=== PATIENT | male | born 1945 | race Caucasian/White ===

== ENCOUNTER 2020-01-02 08:35 | Outpatient (CLI) | payer MEDICARE, OTHER, SELFPAY ==
--- NOTE | 2020-01-10 03:21 | SLEEP_ITS ---
CPAP Titration DATE OF STUDY: 01/02/2020 REASON FOR THE STUDY: Prior sleep study on November 10 showing mild obstructive sleep apnea syndrome, severe in supine REM. HISTORY: This patient is a 74-year-old male, 73 inches tall, weighing 224 pounds with a body mass index of 29.5. On November 10, 2019, he had a sleep study in the lab for complaints of excessive daytime sleepiness, nighttime palpitations, occasional heartburn without snoring. His apnea-hypopnea index was overall 8.3, which is mild, mainly obstructive events, which was severe in the supine REM with an AHI of 36 and desaturation 82% with loud snoring. He did not meet criteria early enough in the study to proceed with titration. He did have significant medical comorbidities. He is back at this time with the titration. MEDICAL COMORBIDITIES: 1. Cardiac arrhythmia with history of atrial fibrillation with rapid ventricular response, ventricular tachycardia on amiodarone with continued palpitations and hypertension. 2. Arthritis. 3. Benign prostatic hyperplasia. 4. History of migraine headaches. 5. History of thyroid disease. 6. Thrombophlebitis. 7. Thoracic aortic aneurysm. 8. 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 MEDICATIONS: 1. Tamsulosin 0.4 mg daily. 2. Pantoprazole 40 mg a day. 3. Warfarin 5 mg a day. 4. Tizanidine 4 mg a day. 5. Pacerone 200 mg a day. 6. Metoprolol 25 mg a day. 7. Multivitamin 1 daily. 8. Fiber 1 daily. HABITS: Cigarettes, quit 7 years ago. Caffeine, 3 cups per day. Occasional beer. DESCRIPTION OF THE STUDY: On the Garretson Sleepiness Scale, his score is 6/24. This was conducted as a CPAP titration using the [employer] multiple channel system including EOG, EEG, submental EMG, EKG, nasal and oral airflow using thermistors and nasal pressure sensors, chest and abdominal belts, body position data, and pulse oximetry. The study was scored using CMS guidelines. Duration of the study was 394.4 minutes. Sleep time was 271.5 minutes. Sleep efficiency was 68.8%. Sleep latency was 14.9 minutes. There was no REM. The patient had 19 awakenings and spent 28.5% of the study awake after sleep onset. This was 108 minutes. Sleep architecture showed 9.7% stage 1 sleep, 61.8% stage 2 sleep. No stage 3 sleep and no stage REM. He spent 14.5% of the study supine, the remainder was non-supine. Sleep architecture was abnormal with primarily stage 2 sleep, frequent awakenings, and a long episode of wakefulness in the last third of the night. There was no REM. This was abnormal compared to his initial study, which showed multiple REM cycles. The apnea-hypopnea index was 1.5. There was no REM. He had 1 obstructive hypopnea in supine non-REM for an index of 1.1, and 6 obstructive hypopneas in non-supine non-REM for an index of 1.7. Supine index was 1.1. Non-supine index 1.7. Lowest desaturation 90%. No time was spent below 88%. There were 9 desaturations of 4% or greater for an index of 1.4. The mean saturation was 93%. AROUSALS: 86 arousals for an index of 13.1. There was 1 hypopnea for an index of 0.2, 3 snores for an index of 0.5, 82 spontaneous for an index of 12.5. LIMB MOVEMENTS: No limb movements during the study. EKG: Mean heart rate was 56. EEG: Unremarkable. The CPAP titration was initiated at a pressure of 5, increased up to a pressure of 8 with 3 of EPR. The apnea-hypopnea index improved and at the highest setting, the patient spent 4 hours 52 minutes in bed. No REM, 3 hours 25 minutes of non-REM, had 4 hypopneas for an AHI 1.2 and a minimum saturation of 90%. Sleep efficiency was 70%. He used a medium ResMed P10 nasal pillow with a chinstrap. Snoring was mild and was eliminated at optimal pressure.
== END 2020-01-02 08:36 | disposition home or self-care (01) ==
PROVIDERS: PCP Family Medicine; Visit Provider Internal Medicine Cardiovascular Disease
DX: G47.30 Sleep apnea, unspecified (principal)
CPT/HCPCS: 95811

== ENCOUNTER 2020-08-06 06:36 | Outpatient (CLI) | payer MEDICARE, OTHER, SELFPAY ==
--- NOTE | ~2020-08-06 | MR_ITS ---
EXAMINATION: MR brain/brain stem wo/w con EXAM DATE: 08/06/2020 07:38 INDICATION: Generalized headaches for 2 weeks. TECHNIQUE: Magnetic resonance imaging (MRI) of the brain/brain stem obtained without contrast. Sagit chris T1, axial diffusion, gradient echo (T2*), T1, T2, FLAIR sequences obtained. Patient was then inj ected with 19 cc intravenous Multihance contrast. Axial and coronal postcontrast T1 weighted sequence s obtained. There is no prior study for comparison. FINDINGS: There are no areas of restricted diffusion to suggest acute infarction. There is no acute hemorrhage seen on the T2*, a hemosiderin sensitive sequence. No intraparenchymal brain mass. The ve ntricles are normal in size. There are no extra-axial collections. Flow voids are seen in the cereb ral arteries on the T2-weighted sequences consistent with their expected patency. Patient has had bi lateral ocular lens surgery. Soft tissue is unremarkable. There are no areas of abnormal enhanceme nt on the postcontrast images. IMPRESSION: Unremarkable brain MRI examination. Reviewed, dictated and finalized at location B.
[2020-08-06 07:13] LABS: Estimated Glomerular Filt Rate > 60
== END 2020-08-06 06:37 | disposition home or self-care (01) ==
LOC: ANHIMG 06:40
PROVIDERS: PCP Family Medicine; Visit Provider Physician Assistant Medical
DX: R51.9 Headache, unspecified (principal)
CPT/HCPCS: 70553; A9577

== ENCOUNTER 2020-08-28 01:39 | Outpatient (CLI) | payer MEDICARE, OTHER, SELFPAY ==
[2020-08-28 19:05] LABS: SARS-CoV-2 RNA PCR Negative
== END 2020-08-28 01:40 | disposition home or self-care (01) ==
LOC: ANHCOVIDDT 01:40
PROVIDERS: PCP Family Medicine; Visit Provider Plastic Surgery
DX: Z01.812 Encounter for preprocedural laboratory examination (principal); Z20.828 Contact with and (suspected) exposure to other viral communicable diseases
CPT/HCPCS: 87635; C9803; U0003

== ENCOUNTER 2020-08-30 01:11 | Day surgery (SDC) | payer MEDICARE, OTHER, SELFPAY ==
[2020-08-22 14:52] VITALS: BMI 27.9
[2020-08-30] VITALS (10 sets, daily range): BP systolic 118–170; BP diastolic 71–92; PULSE 63–75; RESP 16–18; TEMP 36.4; O2SAT 91–100
--- NOTE | 2020-08-30 06:59 | WPDHPUPDATE1 ---
History and Physical Update Update Date/Time: 08/30/20 06:59 History and Physical has been reviewed, including an updated exam of the patient. There are NO changes in the patient's condition. Risks, benefits, and alternatives have been discussed and questions answered. Patient agrees to proceed with procedure.
[2020-08-30] MEDS: LIDO 1%/EPINEPHRINE 1:100,000 20 ML VIAL INFILTRATE (13:18)
--- NOTE | 2020-08-30 13:26 | SUR.OPER ---
specimen given to beata in pathology by obed pct at [id number]
[2020-08-30] MEDS: BACITRACIN OINTMENT 15 GM TUBE 1 APPLIC TOPICAL (14:03)
--- NOTE | 2020-08-30 14:11 | PM.OP ---
Procedure Note - Brief Procedure Note - Brief Date of procedure: 08/30/20 Pre-op diagnosis: Ulcerated Neoplasm Right Posterior Cheek Post-op diagnosis: other (BCC) Procedure performed: 1.5 cm excision of BCC with FS and 4.0 cm intermediate repair. Anesthesia: local Surgeon: Dangelo Hand MD Estimated blood loss (mL): 5 Drains: No Packing: No Pathology: yes Complications: No immediate complications Condition: critical Disposition: same day
--- NOTE | 2020-08-30 14:13 | PM.PROC ---
Procedure Note - Detailed Date of procedure: 08/30/20 Pre-op diagnosis: Ulcerated Neoplasm Right Posterior Cheek Post-op diagnosis: other (Basal cell carcinoma) Procedure performed: 1.5 cm excision of basal cell carcinoma of the right posterior cheek with frozen section and intermediate repair 4 cm Description of procedure: The site was marked on the patient's cheek in the holding area. He was taken to the operating room and placed supine on the operating table. A time-out was held and confirmed. The cheek had been shaved. The site was carefully marked for excision. It was infiltrated with 1% lidocaine with epinephrine. Specimen was incised and the aspect nearest the orbit was marked with a suture for 12:00 o'clock. The specimen was sent to pathology for frozen section. The pathologist reports that the tumor is a basal cell carcinoma and is excised. The wound was closed with intradermal 4-0 Vicryl and a running 5 0 nylon. The skin edges were undermined about 6 mm each. Bleeding points were electrocoagulated. The patient had remained on Coumadin and blood loss was estimated at 5 ml. Is discharged home with no prescriptions. He has instructions in wound care and follow-up Surgeon: Dangelo Hand MD
== END 2020-08-30 14:48 | disposition home or self-care (01) ==
PROVIDERS: PCP Family Medicine; Visit Provider Plastic Surgery
PROC: (CPT 11642; principal; 2020-08-30 13:30)
DX: C44.319 Basal cell carcinoma of skin of other parts of face (principal); Z79.01 Long term (current) use of anticoagulants
CPT/HCPCS: 11642; 12052; 88305; 88331; 88332

== ENCOUNTER 2021-05-23 13:52 | Outpatient (CLI) | payer MEDICARE, SELFPAY ==
--- NOTE | ~2021-05-23 | US_ITS ---
EXAMINATION: US aorta [facility] DATE: 05/23/2021 14:55 INDICATION: Nicotine dependence and hypercholesterolemia. TECHNIQUE: Grayscale, color Doppler, and pulsed Doppler images of the aorta and common iliac arteries were obtained. COMPARISON: CT abdomen and pelvis dated 07/25/2019 FINDINGS: The proximal aorta measures 2.7 cm. The mid aorta measures 2.3 x 2.6 cm. The distal aorta measures 2. 2 x 2.3 cm. The right common iliac artery measures 1.7 cm. The left common iliac artery measures 1.6 cm. IMPRESSION: 1. Normal caliber abdominal aorta. Reviewed, dictated and finalized at location A.
--- NOTE | ~2021-05-23 | US_ITS ---
EXAMINATION: US carotid duplex BI EXAM DATE: 05/23/2021 14:55 INDICATION: R09.89 - Other specified symptoms and signs involving the circulatory and respiratory sys tems . TECHNIQUE: Grayscale, color and pulsed Doppler images of the cervical carotid arteries were obtained . The degree of vessel stenosis is placed in one of the following categories: normal, <50% stenosis, 50-69% stenosis, >=70% stenosis but less than near-occlusion, near-occlusion, or occlusion. Note that percent stenosis relative to normal distal artery lumen diameter is indirectly measured from velocit y measurements as described by Moshe, et al. Radiology 2003; 229:340-346. There is no prior study fo r comparison. FINDINGS: RIGHT SIDE: Right common carotid artery peak systolic velocity (PSV in cm/s): 93 Right bulb/internal carotid artery peak systolic velocity (PSV in cm/s): 72 Right internal carotid artery end diastolic velocity (EDV in cm/s): 24 Right ICA/CCA peak systolic ratio: 0.8 Right external carotid artery peak systolic velocity (PSV in cm/s): 117 Right vertebral artery antegrade flow: yes There is minimal carotid bulb plaque. Velocity and Doppler waveforms in the common and internal carotid arteries is normal. LEFT SIDE: Left common carotid artery peak systolic velocity (PSV in cm/s): 77 Left bulb/internal carotid artery peak systolic velocity (PSV in cm/s): 77 Left internal carotid artery end diastolic velocity (EDV in cm/s): 28 Left ICA/CCA peak systolic ratio: 1.0 Left external carotid artery peak systolic velocity (PSV in cm/s): 109 Left vertebral artery antegrade flow: yes There is no focal plaque identified. IMPRESSION: 1. Less than 50 percent stenosis in the right internal carotid artery. 2. Normal left internal carotid artery. > Reviewed, dictated and finalized at location A.
== END 2021-05-23 13:53 | disposition home or self-care (01) ==
LOC: ANHIMG 13:53
PROVIDERS: PCP Family Medicine; Visit Provider Physician Assistant Medical
DX: R09.89 Other specified symptoms and signs involving the circulatory and respiratory systems (principal); Z87.891 Personal history of nicotine dependence
CPT/HCPCS: 76706; 93880

== ENCOUNTER 2022-03-17 08:36 | Emergency (ER) | payer MEDICARE, SELFPAY ==
[2022-03-17 08:44] VITALS: BP 156/85; PULSE 58; RESP 20; TEMP 37.3; O2SAT 100
--- NOTE | 2022-03-17 08:49 | ED.SKABFB ---
HPI - Skin/Abscess/Foreign Bdy General Chief complaint: Skin/Abscess/Foreign Body Stated complaint: red area around tick bite Time Seen by Provider: 03/17/22 08:47 Source: patient and RN notes reviewed Mode of arrival: ambulatory Limitations: no limitations History of Present Illness HPI narrative: 76-year-old male presents with concern for tick bite. Reports he was bit by a tick on his left thigh 9 days ago. Reports he pulled the tick out at that time and had a small red spot on his leg. He reports the red area became larger and slightly tender. He reports his pulled out small amount of black debris with some purulent drainage. He denies body aches, chills, sweats, fever, general malaise. Denies rash in any other area of his body. MD complaint: insect bite/sting Related Data Home Medications Medication Instructions Recorded Confirmed multivitamin 1 tablet PO DAILY 09/21/19 10/17/21 Allergies Allergy/AdvReac Type Severity Reaction Status Date / Time sulfamethoxazole Allergy Severe RASH Verified 03/17/22 08:45 trimethoprim Allergy Severe RASH Verified 03/17/22 08:45 sulfamethizole Allergy Unknown balanitis Verified 03/17/22 08:45 iohexol Allergy Rash Verified 03/17/22 08:45 [From contrast - CT, X-RAY] Review of Systems Review of Systems: CONSTITUTIONAL: Denies malaise, chills, sweats, or fever. EYES: Denies redness, or discharge. ENT: Denies rhinorrhea, congestion, swollen lips, swollen tongue CARDIOVASCULAR: Denies chest pain, palpitations, or edema. RESPIRATORY: Denies cough or dyspnea. GASTROINTESTINAL: Denies abdominal pain, nausea, vomiting SKIN: Reports red raised area on the left thigh MUSCULOSKELETAL: Denies joint pain or myalgia. NEUROLOGIC: Denies headache. All systems reviewed & are unremarkable except as noted in HPI and below PMFSH Past Medical History Medical History (Updated 03/17/22 @ 08:57 by Shannan Corrigan NP) Adenomatous colon polyp Adrenal adenoma Arthritis Basal cell carcinoma, face BPH (benign prostatic hyperplasia) External thrombosed hemorrhoids History of migraine headaches Obesity (BMI 30.0-34.9) DONN on CPAP Thrombophlebitis Thyroid disease Surgical History Surgical History H/O elbow surgery H/O hemorrhoidectomy H/O shoulder surgery History of appendectomy History of carpal tunnel surgery History of cataract surgery History of facial surgery History of left knee replacement History of right hip replacement S/P ascending aortic aneurysm repair Family History Family History Father Heart disease Mother Cancer Unknown Cancer Alcoholism Grandparent Heart disease Father Family history of cardiovascular disease Grandparent Family history of cardiovascular disease Mother Family history of malignant neoplasm of breast in first degree relative Other Family history of alcoholism Family history of malignant neoplasm of breast Social History Social History Smoking packs per day: 0 Smoking cigarettes per day: 0.0 Years smoked: 20 Smoking pack-years: 0.00 Smoking end date: 05/02/12 Alcohol intake: current Drinks per week: 2 Alcohol use details: 2 BEERS/WEEK Substance use: never Additional living arrangements comments: [facility]IRLFRIEND- [facility] Spiritual care concerns: No Comments At time of signature, agree with nursing past medical, surgical, social and family history. There is no relevant family history pertinent to the presenting complaint Exam Narrative: GENERAL: Well-appearing, well-nourished, and in no acute distress. HEAD: Normocephalic, atraumatic. EYES: PERRLA, conjunctivae clear, and EOMI. ENT: Mucous membranes moist. NECK: Supple. No lymphadenopathy CHEST: Clear to auscultation. No respiratory distress. HEART: Regular rate and rh
== END 2022-03-17 09:02 | disposition home or self-care (01) ==
PROVIDERS: Emergency Provider Nurse Practitioner; PCP Family Medicine
DX: L03.116 Cellulitis of left lower limb (principal); S70.362A Insect bite (nonvenomous), left thigh, initial encounter; W57.XXXA Bitten or stung by nonvenomous insect and other nonvenomous arthropods, initial encounter; Z87.891 Personal history of nicotine dependence; M19.90 Unspecified osteoarthritis, unspecified site; N40.0 Benign prostatic hyperplasia without lower urinary tract symptoms; G47.33 Obstructive sleep apnea (adult) (pediatric); E66.9 Obesity, unspecified; Z68.30 Body mass index [BMI] 30.0-30.9, adult; Z86.72 Personal history of thrombophlebitis; E07.9 Disorder of thyroid, unspecified; Z96.641 Presence of right artificial hip joint
CPT/HCPCS: 99213; G0463

== ENCOUNTER 2022-05-31 14:57 | Inpatient (IN) | payer MEDICARE, SELFPAY ==
[2022-05-31] VITALS (15 sets, daily range): BP systolic 94–175; BP diastolic 61–160; PULSE 63–91; RESP 26–42; TEMP 36.2–36.8; O2SAT 92–100; BMI 26.2
--- NOTE | ~2022-05-31 | CT_ITS ---
EXAMINATION:CT chest high resolution wo co DATE: 06/06/2022 09:46 INDICATION: Interstitial lung disease. TECHNIQUE: Computed tomography (CT) of the chest was performed without intravenous contrast. Automate d exposure control and iterative reconstruction technique were employed. The dose-length product (DLP ) was 701.88 mGy-cm. COMPARISON: Chest CT 06/03/2022, chest single view 06/06/2022, CT abdomen and pelvis 07/25/2019 FINDINGS: The lungs demonstrate widespread septal thickening and groundglass opacities with a posteri or and lower lung predominance. There are airspace opacities in all lobes with a posterior and lower lung predominance. There are small bilateral pneumothoraces. Pneumomediastinum is noted. There is sof t tissue gas in the neck and chest wall. There is soft tissue gas in anterior and left lateral abdomi nal wall. Some of the gas tracking in the anterior abdomen could be intraperitoneal. The endotracheal tube tip is in the expected position in the trachea. The nasogastric tube tip is in the stomach. The re are surgical changes of ascending aorta. The heart size is normal. There are coronary artery calci fications. No pericardial effusion. Hyperdense material in the gallbladder may be sludge or stones. T here is a chronic 2.4 cm mass in left adrenal gland soft tissue attenuation, consistent with an adeno ma. There is a 4 mm stone in left kidney. There is mild thoracic spondylosis. There is mild chronic a nterior wedging of multiple lower thoracic vertebral bodies. There is severe cervical spondylosis. IMPRESSION: 1. Small bilateral pneumothoraces. 2. Pneumomediastinum. 3. Diffuse lung disease with volume loss when compared to 06/03/22, consistent with pulmonary edema purnima maame pneumonia versus acute respiratory distress syndrome (ARDS). Reviewed, dictated and finalized at location A. IMPRESSION: 1. Small bilateral pneumothoraces. 2. Pneumomediastinum. 3. Diffuse lung disease with volume loss when compared to 06/03/22, consistent wi th pulmonary edema versus pneumonia versus acute respiratory distress syndrome (ARDS).
--- NOTE | ~2022-05-31 | XR_ITS ---
EXAMINATION: XR abdomen NG/feed tube insert DATE: 06/04/2022 09:30 INDICATION: Orogastric tube advancement. TECHNIQUE: A semiupright view of the abdomen was obtained. COMPARISON: Chest single view at 9:08 AM FINDINGS: The nasogastric tube is coiled in the pharynx. There is gaseous distention of the stomach. There are no dilated loops of small or large bowel. The lower abdomen is excluded. IMPRESSION: 1. Nasogastric tube coiled in the pharynx. Reviewed, dictated and finalized at location A.
--- NOTE | ~2022-05-31 | XR_ITS ---
XR chest 1V portable DATE: 06/07/2022 06:10 INDICATION: Intubation TECHNIQUE: Portable AP chest on 06/07/2022 at 0513 hours COMPARISON: 06/06/2022 portable AP chest at 1240 hours FINDINGS: ET tube tip 4.8 cm above isela. NG tube in stomach. Cardiomegaly. Bilateral diffuse pulmonary infiltrates are again noted, relatively stable since 06/06/20 22 allowing for technical differences. Bilateral pneumothoraces appear resolved. Diminished subcutaneous emphysema is noted in the upper [address] and neck. IMPRESSION: Persistent diffuse bilateral pulmonary infiltrates Resolution of bilateral pneumothoraces, diminished subcutaneous emphysema of the upper chest and neck Reviewed, dictated and finalized at location A. IMPRESSION: Persistent diffuse bilateral pulmonary infiltrates Resolution of bilateral pneumothoraces, diminished subcutaneous emphysema of th e upper chest and neck
--- NOTE | ~2022-05-31 | US_ITS ---
EXAMINATION: US venous doppler LE DATE: 06/02/2022 15:00 INDICATION: Right lower limb deep venous thrombosis TECHNIQUE: Grayscale ultrasound images without and with compression and Doppler ultrasound images of the bilateral lower extremity veins were obtained. COMPARISON: None. FINDINGS: Nonocclusive noncompressible thrombus in the right common femoral vein and femoral vein with occlusiv e appearing thrombus in the wall of the paired right peroneal veins at the calf, the lesser saphenous vein and right greater saphenous vein at both the upper and lower leg. The visualized portions of ri ght profunda (deep) femoral vein, popliteal vein, posterior tibial veins and the second of the paired right peroneal veins remain patent. Occlusive/nearly occlusive thrombus at the junction of the left external iliac and common femoral vei ns as well as in the left greater saphenous vein. Additional nonocclusive noncompressible thrombus is seen in the more distal left common femoral vein, to distal femoral vein, popliteal vein and one of the paired posterior tibial veins. The visualized portions of left profunda femoral vein, peroneal ve ins, gastrocnemius vein and second of the left posterior tibial veins are patent. IMPRESSION: 1. Both above and [id number] deep venous thrombosis at both the right and left lower limbs. Find ings were discussed with Lupe Galvan, the nurse caring for the patient, at 3:12 PM. . Reviewed, dictated and finalized at location A. IMPRESSION: 1. Both above and [id number] deep venous thrombosis at both the right and left lower limbs. Findings were discussed with Lupe Galvan, the nurse caring f or the patient, at 3:12 PM. .
--- NOTE | ~2022-05-31 | XR_ITS ---
EXAMINATION: XR chest 1V portable DATE: 06/09/2022 06:38 INDICATION: Acute respiratory distress syndrome. Acute respiratory failure. TECHNIQUE: A single frontal view of the chest was obtained. COMPARISON: Chest single view at me 05/23 FINDINGS: There are airspace opacities in all lung zones bilaterally. No pleural effusion or pneumoth orax. Cardiomegaly is noted. Pneumomediastinum is noted. The endotracheal tube tip is 5.3 cm above th e isela. The nasogastric tube tip is in the stomach. Median sternotomy wires are noted. IMPRESSION: 1. Diffuse lung disease with improvement in left upper lobe, consistent with pulmonary edema versus p neumonia versus acute respiratory distress syndrome (ARDS). 2. Persistent pneumomediastinum. 3. Cardiomegaly. Reviewed, dictated and finalized at location A. IMPRESSION: 1. Diffuse lung disease with improvement in left upper lobe, consistent with pu lmonary edema versus pneumonia versus acute respiratory distress syndrome (ARDS ). 2. Persistent pneumomediastinum. 3. Cardiomegaly.
--- NOTE | ~2022-05-31 | XR_ITS ---
EXAMINATION: XR chest 1V portable DATE: 06/06/2022 05:56 INDICATION: Intubation. TECHNIQUE: A single frontal view of the chest was obtained. COMPARISON: Chest single view 06/05/2022, chest CT 06/03/2022 FINDINGS: There are airspace and interstitial opacities throughout the lungs bilaterally. No pleural effusion. There are small bilateral pneumothoraces. Cardiomegaly is noted. Median sternotomy wires ar e noted. The nasogastric tube tip is in the stomach. The endotracheal tube tip is 4.2 cm above the ca ceci. IMPRESSION: 1. Small bilateral pneumothoraces. I called this result to Nel Riggs. 2. 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 3. Cardiomegaly. Reviewed, dictated and finalized at location A. IMPRESSION: 1. Small bilateral pneumothoraces. I called this result to Nel Riggs. 2. Stable diffuse lung disease, consistent with pulmonary edema versus pneumoni a superimposed on chronic lung disease. 3. Cardiomegaly.
--- NOTE | ~2022-05-31 | XR_ITS ---
XR chest ET placement DATE: 06/06/2022 12:48 INDICATION: Endotracheal tube repositioning TECHNIQUE: Portable AP view on 06/06/2022 at 1240 hours COMPARISON: 06/06/2022 CT chest high resolution scan 06/06/2022 portable AP chest at 0514 hours FINDINGS: ET tube in satisfactory position approximately 4 cm above isela. Extensive patchy bilateral pulmonary infiltrates are again noted. Very slight residual pneumothoraces are likely present. There is pneumomediastinum and bilateral upper chest and cervical subcutaneous e mphysema. No pleural effusion. Cardiomegaly. NG tube in gastric fundus. Status post sternotomy. Osteoarthritic change at the left glenohumeral joint. IMPRESSION: Slight bilateral pneumothoraces, pneumomediastinum, subcutaneous emphysema of the upper c hest and cervical area is Persistent extensive bilateral pulmonary infiltrates ET tube in satisfactory position Reviewed, dictated and finalized at Location A. Reviewed, dictated and finalized at location B. IMPRESSION: Slight bilateral pneumothoraces, pneumomediastinum, subcutaneous em physema of the upper chest and cervical area is Persistent extensive bilateral pulmonary infiltrates ET tube in satisfactory position
--- NOTE | ~2022-05-31 | CT_ITS ---
EXAMINATION: CT brain wo con DATE: 06/06/2022 09:46 INDICATION: Unequal pupil size TECHNIQUE: Computed tomography (CT) of the head was performed without intravenous contrast. The mA wa s adjusted according to patient size. Iterative reconstruction technique was employed. Exam dose: 68 1.00 mGy-cm total exam DLP. COMPARISON: 08/06/2020 MRI brain/brainstem FINDINGS: Bilateral carotid siphon internal carotid artery calcifications. Mild nonspecific diminishe d attenuation of the cerebral white matter, likely due to chronic small vessel ischemic changes. No intracranial mass lesion or hemorrhage or cerebrovascular accident. No midline shift or mass effec t. No subdural or epidural hematoma. There is age consistent mild to moderate cerebral and cerebellar volume loss. No orbital mass lesion. Fluid levels are noted in both maxillary sinuses. There is mild patchy soft tissue thickening of the ethmoid air cells. Bilateral mastoid effusions are noted, left greater than right. No fracture or bone destruction of the cranial vault. IMPRESSION: Cerebral atherosclerosis and chronic small vessel ischemic changes of the cerebral white matter Fluid levels in both maxillary sinuses, soft tissue thickening of the ethmoid air cells Bilateral mastoid effusions, left greater than right Reviewed, dictated and finalized at Location A. Reviewed, dictated and finalized at location B. IMPRESSION: Cerebral atherosclerosis and chronic small vessel ischemic changes of the cerebral white matter Fluid levels in both maxillary sinuses, soft tissue thickening of the ethmoid a ir cells Bilateral mastoid effusions, left greater than right
--- NOTE | ~2022-05-31 | XR_ITS ---
XR chest 1V portable DATE: 06/08/2022 08:17 INDICATION: Acute respiratory failure. TECHNIQUE: Portable supine AP view on 06/08/2022 at 0807 hours COMPARISON: 06/07/2022 portable AP chest at 0513 hours FINDINGS: ET tube approximately 5 cm above isela in satisfactory position. NG tube in gastric fundus . No central lines. Diffuse bilateral pulmonary infiltrates throughout both lungs, increased since 06/07/2022, consistent w ith extensive bilateral pneumonia, pneumonia and/or ARDS. No evidence of pneumothorax or new side. Mild subcutaneous emphysema in the lower cervical areas. IMPRESSION: Increased bilateral pulmonary infiltrates since 06/08/2022 Reviewed, dictated and finalized at location A.
--- NOTE | ~2022-05-31 | XR_ITS ---
EXAMINATION: XR abdomen NG/feed tube rechec DATE: 06/04/2022 09:30 INDICATION: Orogastric tube advancement. TECHNIQUE: An upright view of the abdomen was obtained. COMPARISON: Abdomen single view at 9:12 AM FINDINGS: The lower abdomen is excluded. There are no dilated loops of small or large bowel. The orog astric tube tip is in the stomach. IMPRESSION: 1. Orogastric tube tip in the stomach. Reviewed, dictated and finalized at location A.
--- NOTE | ~2022-05-31 | US_ITS ---
EXAMINATION: US renal BI DATE: 06/05/2022 09:42 INDICATION: Acute kidney injury. TECHNIQUE: Multiple ultrasound grayscale images of the kidneys were obtained. COMPARISON: CT abdomen and pelvis 07/25/2019 FINDINGS: The right kidney measures 10.8 x 6.0 x 5.9 cm. The left kidney measures 11.5 x 5.7 x 6.4 cm. The kidn eys demonstrate normal parenchymal echogenicity. There is a 9 mm cyst in left kidney. There is no hyd ronephrosis. The bladder is decompressed by a Ibanez catheter. IMPRESSION: 1. Normal kidney sizes. No hydronephrosis. Reviewed, dictated and finalized at location A.
--- NOTE | ~2022-05-31 | CT_ITS ---
EXAMINATION: CT diagnostic chest wo con DATE: 06/03/2022 11:16 INDICATION: Post COVID TECHNIQUE: Computed tomography (CT) of the chest was performed without intravenous contrast. Addition al 3D reconstructions utilizing coronal maximum intensity projection (MIP) were performed. Automated exposure control and iterative reconstruction technique were employed. The dose-length product was 47 0.19 mGy-cm. COMPARISON: None FINDINGS: Diffuse gradient dating pattern throughout both lungs with extensive groundglass opacities, interveni ng septal line thickening as well as patchy areas of more dense consolidation. There is a dependent p redominance to the lung disease. No pleural effusion. Cardiomegaly. Atherosclerotic coronary artery c alcifications and aortic valve calcification. Median sternotomy with change of prior ascending aortic aneurysm repair. Some interval increase in size of still normal-sized likely reactive mediastinal ly mph nodes. 6 mm exophytic likely left renal cyst which is too small to definitively characterize. 4 m m and 1 mm nonobstructing stones at upper pole calyces of the left kidney. Unchanged small bilateral low-attenuation adrenal adenomas the largest on the left measuring 2.2 cm in maximal diameter and 1 c m on the right. Mild upper thoracic levocurvature and mid thoracic dextrocurvature. Moderate spondylo sis with bridging osteophytes at multiple levels consistent with diffuse idiopathic skeletal hyperost osis (DISH). IMPRESSION: 1. Diffuse bilateral lung disease with dependent predominance. In the acute setting differential woul d include pneumonia including reported history of COVID pneumonia or moderate pulmonary edema. Differ ential would include less likely drug-induced pneumonitis and chronic eosinophilic pneumonia. 2. Cardiomegaly with change of interval ascending aortic aneurysm repair. 3. Mild likely reactive mediastinal lymphadenopathy. Reviewed, dictated and finalized at location A. IMPRESSION: 1. Diffuse bilateral lung disease with dependent predominance. In the acute set ting differential would include pneumonia including reported history of COVID p neumonia or moderate pulmonary edema. Differential would include less likely dr ug-induced pneumonitis and chronic eosinophilic pneumonia. 2. Cardiomegaly with change of interval ascending aortic aneurysm repair. 3. Mild likely reactive mediastinal lymphadenopathy.
--- NOTE | ~2022-05-31 | XR_ITS ---
EXAMINATION: XR chest ET placement DATE: 06/04/2022 09:29 INDICATION: Intubation. TECHNIQUE: A single frontal view of the chest was obtained. COMPARISON: Chest single view 06/04/2022 at 8:38 AM, chest CT 06/03/2022 FINDINGS: There are interstitial and airspace opacities throughout the lungs bilaterally. No pleural effusion or pneumothorax. Cardiomegaly is noted. Median sternotomy wires are noted. There is a small volume of pneumomediastinum. The endotracheal tube tip is 5.5 cm above the isela. The nasogastric tu be is coiled in the pharynx. IMPRESSION: 1. Stable diffuse lung disease, consistent with pulmonary edema versus pneumonia versus acute respira tory distress syndrome (ARDS). 2. Cardiomegaly. 3. Small volume of pneumomediastinum. 4. Nasogastric tube coiled in the pharynx. Reviewed, dictated and finalized at location A. IMPRESSION: 1. Stable diffuse lung disease, consistent with pulmonary edema versus pneumoni a versus acute respiratory distress syndrome (ARDS). 2. Cardiomegaly. 3. Small volume of pneumomediastinum. 4. Nasogastric tube coiled in the pharynx.
--- NOTE | ~2022-05-31 | US_ITS ---
EXAMINATION: US venous doppler UE DATE: 06/02/2022 15:00 INDICATION: Upper limb pain TECHNIQUE: Grayscale images without and with compression and Doppler images of the bilateral upper ex tremity veins were obtained. COMPARISON: None. FINDINGS: There is noncompressible occlusive appearing thrombus in the right cephalic vein throughout the right forearm. The more proximal right cephalic vein at the upper arm is patent and compressible. The righ t internal jugular vein, subclavian vein, axillary vein, brachial vein, basilic vein, radial vein, an d ulnar vein are patent. There is more diffuse thrombosis with noncompressible occlusive thrombus throughout the left cephalic vein from the upper arm through the distal forearm. The left internal jugular vein, subclavian vein, axillary vein, brachial vein, basilic vein, radial vein, and ulnar vein are patent. IMPRESSION: 1. Thrombosis of the bilateral cephalic veins, throughout the left upper arm and forearm on the left and more distally in the right forearm on the right. Findings were discussed with Lupe Galvan, the n urse caring for the patient, at 3:12 PM. Reviewed, dictated and finalized at location A. IMPRESSION: 1. Thrombosis of the bilateral cephalic veins, throughout the left upper arm an d forearm on the left and more distally in the right forearm on the right. Find ings were discussed with Lupe Galvan, the nurse caring for the patient, at 3:1 2 PM.
--- NOTE | ~2022-05-31 | XR_ITS ---
EXAMINATION: XR chest 1V portable DATE: 06/05/2022 06:06 INDICATION: Intubation. TECHNIQUE: A single frontal view of the chest was obtained. COMPARISON: Chest single view 06/04/2022, chest CT 06/03/2022, 10/17/2019 FINDINGS: There are airspace and interstitial opacities throughout the lungs bilaterally. No pleural effusion or pneumothorax. Cardiomegaly is noted. Median sternotomy wires are noted. The endotracheal tube tip is 5.1 cm above the isela. The nasogastric tube tip is in the stomach. IMPRESSION: 1. Diffuse lung disease with interval improvement, consistent with pulmonary edema versus pneumonia s uperimposed on chronic lung disease. 2. Cardiomegaly. Reviewed, dictated and finalized at location A. IMPRESSION: 1. Diffuse lung disease with interval improvement, consistent with pulmonary ed luis versus pneumonia superimposed on chronic lung disease. 2. Cardiomegaly.
--- NOTE | ~2022-05-31 | XR_ITS ---
EXAMINATION: XR chest 1V portable DATE: 06/04/2022 08:57 INDICATION: Increasing shortness of breath TECHNIQUE: frontal view of the chest was obtained. COMPARISON: Chest radiograph dated 05/31/2022 FINDINGS: Interstitial and airspace opacities throughout both lungs with lower lung predominance. No pleural ef fusion or pneumothorax. Median sternotomy wires and mediastinal surgical clips are seen, likely from prior coronary artery bypass grafting. Borderline heart size accounting for AP technique. Moderate sc attered degenerative skeletal changes in the spine and at both shoulders. IMPRESSION: 1. Diffuse bilateral lung disease which could represent congestive heart failure related mild pulmona ry edema or pneumonia. Reviewed, dictated and finalized at location A. IMPRESSION: 1. Diffuse bilateral lung disease which could represent congestive heart failur e related mild pulmonary edema or pneumonia.
--- NOTE | ~2022-05-31 | XR_ITS ---
EXAMINATION: XR chest 1V portable Exam Date/Time: 05/31/2022 15:15 CDT HISTORY: cough,pt on CPAP,cold extremties, hx covid pneumonia Comparison: None available. RESULT: Lines, tubes, and devices: Intact sternotomy wires. Lungs and pleura: Patchy peripheral groundglass and airspace opacities, with diffuse reticular opaci ties. Cardiomediastinal silhouette: Stable. Other: No acute osseous or upper abdominal finding. IMPRESSION: Pulmonary findings likely represent atypical/viral infection, possibly overlying mild interstitial ed luis/senescent change. Reviewed, dictated and finalized at location [facility]. IMPRESSION: Pulmonary findings likely represent atypical/viral infection, possibly overlyin g mild interstitial edema/senescent change.
[2022-05-31 15:11] LABS: Base Excess ABG 0.7 mEq/l (+/-2.0); Carboxyhemoglobin 1.2 % THb (0-2.0); Fractional Inspired Oxygen 80 %; HCO3 ABG 23.4 mEq/l (22.0-26.0); Methemoglobin ABG 0.2 %THb (0-1.5); Oxygen Content ABG 19.8 %vol (16.0-22.0); Oxygen Saturation ABG 97.9 % (95.0-100.0); PCO2 ABG 32.4 mmHg (35.0-45.0); PO2 ABG 99.4 mmHg (80.0-100.0); PO2 FiO2 Ratio Arterial Blood 1.24 %; Reduced Hemoglobin 2.6 %THb (0-5.0); Total Hemoglobin 14.6 g/dL (12.0-18.0); pH ABG 7.477 (7.350-7.450)
--- NOTE | 2022-05-31 15:11 | ED.GENADULT ---
HPI - General Adult General Chief complaint: Shortness of Breath/Dyspnea Stated complaint: COVID+ PNE SOB CPAP Time Seen by Provider: 05/31/22 15:03 Source: RN notes reviewed History of Present Illness HPI narrative: Patient presents emergency department from home via EMS for shortness of breath. Patient recently discharged from [facility] secondary to COVID and subsequently his COVID-pneumonia on 6 L nasal cannula at all times patient was noted to have increasing shortness of breath today when EMS arrived patient was 80% on 6 L nasal cannula was placed on CPAP. Patient states he is feeling better at this time. States that he has been feeling short of breath for the past 4 weeks but worse today states that he had been initially discharged with no antibiotics or steroids from the facility he denies any fevers or chills chest pain abdominal pain nausea vomiting Related Data Home Medications Medication Instructions Recorded Confirmed multivitamin 1 tablet PO DAILY 09/21/19 04/16/22 Allergies Allergy/AdvReac Type Severity Reaction Status Date / Time sulfamethoxazole Allergy Severe RASH Verified 04/17/22 11:44 trimethoprim Allergy Severe RASH Verified 04/17/22 11:44 sulfamethizole Allergy Unknown balanitis Verified 04/17/22 11:44 iohexol Allergy Rash Verified 04/17/22 11:44 [From contrast - CT, X-RAY] Review of Systems Review of Systems: Gen.: Denies fevers or chills ENT: Denies congestion Respiratory: See HPI CV: Denies chest pain or palpitations GI: Denies abdominal pain nausea, emesis or diarrhea Musculoskeletal: Denies back pain or muscle pain Neuro: Denies numbness, tingling, weakness or focal weakness Skin: Denies rash Except as documented, all other systems reviewed and negative [facility] Past Medical History Medical History Adenomatous colon polyp Adrenal adenoma Arthritis Basal cell carcinoma, face BPH (benign prostatic hyperplasia) COVID-19 External thrombosed hemorrhoids History of migraine headaches Obesity (BMI 30.0-34.9) DONN on CPAP Thrombophlebitis Thyroid disease Surgical History Surgical History H/O elbow surgery H/O hemorrhoidectomy H/O shoulder surgery History of appendectomy History of carpal tunnel surgery History of cataract surgery History of facial surgery History of left knee replacement History of right hip replacement S/P ascending aortic aneurysm repair Family History Family History Father Heart disease Mother Cancer Unknown Cancer Alcoholism Grandparent Heart disease Father Family history of cardiovascular disease Grandparent Family history of cardiovascular disease Mother Family history of malignant neoplasm of breast in first degree relative Other Family history of alcoholism Family history of malignant neoplasm of breast Social History Social History Smoking packs per day: 0 Smoking cigarettes per day: 0.0 Years smoked: 20 Smoking pack-years: 0.00 Smoking status: Never smoker Smoking end date: 05/02/12 Alcohol intake: current Drinks per week: 2 Alcohol use details: 2 BEERS/WEEK Substance use: never Additional living arrangements comments: GIRLFRIEND- [facility] Spiritual care concerns: No Exam Narrative: APPEARANCE: No acute distress, nontoxic, resting in bed EYES: EOMI HEENT: Normocephalic, atraumatic, OMM RESPIRATORY: Mild respiratory distress decreased breath sounds of the bilateral lung flores CARDIOVASCULAR: Irregular irregular without murmurs rubs or gallops. ABDOMINAL: Soft, nontender, nondistended, no rebound or guarding MUSCULOSKELETAl: Moves all extremities. No clubbing, cyanosis or edema. NEURO: Awake and alert x 3 Following commands, speech normal, no focal defic
[2022-05-31 15:12] LABS: Device BIPAP; Modified Allen's Test Pass; Site Drawn LEFT RADIAL
[2022-05-31 15:13] LABS: Expiratory Pressure 6 cmH2O; Inspiratory Pressure 12 cmH2O
[2022-05-31 15:22] LABS: Basophils Percent Auto 0.1 % (0.2-1.2); Eosinophils Absolute Auto 0.1 K/mm3 (0-0.3); Eosinophils Percent Auto 0.5 % (0-4.4); Hematocrit 42.6 % (42.0-52.0); Hemoglobin 13.6 g/dL (14.0-18.0); Immature Granulocyte Absolute 0.05 K/mm3 (0.00-0.031); Immature Granulocyte Percent A 0.5 % (0-0.5); Immature Platelet Fraction Pct 3.6 % (0.9-11.2); Lymphocytes Absolute Auto 0.68 K/mm3 (0.9-3.2); Mean Corpuscular HGB Conc 31.9 g/dl (32-36); Mean Corpuscular Hemoglobin 30.3 pg (26-34); Mean Corpuscular Volume 94.9 fl (80-100); Mean Platelet Volume 10.4 fl (7.4-10.4); Monocytes Absolute Auto 0.6 K/mm3 (0.1-0.6); Monocytes Percent Auto 6.1 % (2.6-8.5); Neutrophils Absolute Auto 8.4 K/mm3 (1.3-6.7); Neutrophils Percent Auto 85.8 % (45.5-73.1); Platelet Count Result 80 k/mm3 (150-375); Red Blood Count 4.49 M/mm3 (4.6-6.20); Red Cell Distribution Width 13.4 % (11.5-14.5); White Blood Count 9.7 K/mm3 (4.5-10.0)
[2022-05-31 15:31] LABS: INR 2.4; Prothrombin Time 25.5 Seconds (11.1-14.7)
[2022-05-31 15:32] LABS: Alanine Aminotransferase 20 U/L (6-50); Albumin Level 3.1 g/dL (3.5-5.1); Alkaline Phosphatase 90 U/L (38-126); Anion Gap 7 mmol/L (8-16); Aspartate Amino Transferase 26 U/L (17-59); Bilirubin,Total 2.1 mg/dL (0.2-1.3); Blood Urea Nitrogen 15 mg/dL (9-20); Calcium 7.9 mg/dL (8.4-10.2); Carbon Dioxide 28 mmol/L (22-30); Chloride 106 mmol/L (98-107); Estimated Glomerular Filt Rate > 60; Glucose 131 mg/dL (65-110); Partial Thromboplastin Time 34.6 SECONDS (22.3-36.8); Potassium 3.8 mmol/L (3.4-5.0); Sodium 141 mmol/L (137-145)
[2022-05-31 15:34] LABS: Lactic Acid Reflex 1.4 mmol/L (0.7-2.0); Magnesium 2.1 mg/dL (1.6-2.3)
[2022-05-31 15:48] LABS: NT Pro B Type Natriuretic Pept 2040 pg/mL (5-100); Troponin I 0.037 ng/mL (0.000-0.034)
--- NOTE | 2022-05-31 16:00 | PM.IMHP ---
H&P: HPI History of Present Illness Date/Time: 05/31/22 16:00 Chief Complaint: Shortness of breath. Narrative: This is a very pleasant 76-year-old male with history of paroxysmal atrial fibrillation, ascending aortic aneurysm status post repair, recurrent DVTs on chronic anticoagulation, obstructive sleep apnea for which he is not always compliant with his CPAP, COPD, and other comorbidities who presented to the emergency department via EMS from home for evaluation of shortness of breath. He tested positive for COVID 19 on 05/08/2022 and was admitted to [facility] on 05/13/2022 after presenting to their ER in respiratory distress. He was diagnosed with COVID pneumonia and was initially treated with dexamethasone and baricitinib. His respiratory status worsened on day 3 and he required up to 40 L high-flow nasal cannula at one point. Eventually the baricitinib was discontinued due to the development of healthcare associated pneumonia on day 7 and he was started on piperacillin/tazobactam. He received several doses of IV furosemide as well due to an increasing BNP and he was found to have a preserved ejection fraction of 55% on echocardiogram with impaired diastolic dysfunction. He had labile oxygenation throughout the stay and he was weaned to 6 L nasal cannula on day of discharge, 05/23/2022. He was discharged to a rehab facility however he left there against medical advice after 2 days. He was able to get an oxygen tank at home but he was not given prescriptions for any of the medications he was prescribed on hospital discharge to include Augmentin and dexamethasone. He has been at home for the last several days and he has been getting along pretty well on his 6 L although his SpO2 will drop into the mid 80s with ambulation. He continues to have a mild cough though that has not been productive. Three days ago on Thursday developed increasing shortness of breath associated with midsternal chest discomfort which is described as sharp and at times heavy in nature. The chest discomfort seems to occur only when taking in deep breaths and he has not noticed discomfort in his chest with ambulation/exertion. This morning he had acute worsening of his shortness of breath and EMS was summoned. His SpO2 was 82% on 6 L nasal cannula on EMS arrival and he was placed on CPAP with improvement in his SpO2 to 86%. The patient requested to come to [facility] as his physicians are on staff her, though he lives over in [place], and that is how he ended up in our ER. He was started on BiPAP on arrival to the emergency department and he is feeling much more comfortable with an adequate SpO2. As mentioned above he is on warfarin for history of recurrent DVTs and atrial fibrillation. His INR was reportedly high on admission to [facility] and he does not believe that he received his warfarin at all during this stay; his INR was 1.7 on day of discharge. Warfarin was resumed on discharge and his INR today is therapeutic. He had lower extremity edema during his hospitalization but that has since improved. He denies calf pain and tenderness. He also denies syncope, presyncope, fever, chills, sweats, sinus congestion, sore throat, nausea, vomiting, and diarrhea. Review of Systems Review of Systems: Twelve systems were reviewed. No syncope or presyncope. He does not wear his CPAP very often as the strap apparently causes him to have headaches. He has fallen out of the habit of using it but is willing to try again. He gets up to go the bathroom 1 or 2 times a night. He has been having some difficulties feeling as though he cannot empty his bladder as per HPI. No dysuria. He is moving his bowels okay. Except as documented, all other systems were reviewed and are negative. [facility] Past Medical History Medical History (Updated 05/31/22 @ 22:49 by Nina Alcazar PA-C) Adenomatous colon polyp Adrenal adenoma Arthritis Ascending aortic aneurysm Status post repair and Januar
[2022-05-31] MEDS: FUROSEMIDE INJ 40 MG/4 ML VIAL IV PUSH (16:40)
--- NOTE | 2022-05-31 16:49 | ECG_ITS ---
Measurements Intervals [place] Rate: 74 P: HI: 0 QRS: -17 QRSD: 108 T: 75 QT: 383 QTc: 427 Interpretive Statements SINUS RHYTHM FREQUENT ATRIAL PREMATURE COMPLEXES DELAYED PRECORDIAL R/S TRANSITION LEFT VENTRICULAR HYPERTROPHY WITH ST-T CHANGE BASELINE ARTIFACT- I, II, III, AVR, AVF, V3 ABNORMAL ECG Electronically Signed On 05-31-2022 17:14:55 CDT by Melchor Beyer D.O.
--- NOTE | 2022-05-31 17:19 | PC.NURSE ---
Patient care report given to IMU RN. All questions answered at this time.
--- NOTE | 2022-05-31 17:23 | PM.CNCAR ---
Assessment and Plan Assessment and plan (1) SOB (shortness of breath) on exertion: Code(s): R06.02 - Shortness of breath Status: Acute Assessment and Plan: Probably due to recent covid pneumonia. NTproBNP and CXR with possible mild pulm edema. Given Lasix 40 mg IV x1 for that. Obtain echo (which won't be done until Thursday as it is weekend). (2) Elevated troponin: Code(s): R77.8 - Other specified abnormalities of plasma proteins Status: Acute Assessment and Plan: Mild elevation. Trend to peak. Probably related to SOB with covid pneumonia and/or CHF. Symptoms do not suggest ACS and EKG shows no acute changes. (3) CAD (coronary artery disease): Qualifiers: Coronary Disease-Associated Artery/Lesion type: bypass graft Associated angina: without angina Code(s): I25.10 - Atherosclerotic heart disease of [place] coronary artery without angina pectoris Status: Acute Assessment and Plan: Stable. (4) Dyslipidemia: Code(s): E78.5 - Hyperlipidemia, unspecified Status: Acute Assessment and Plan: On Pravastatin. (5) PAF (paroxysmal atrial fibrillation): Code(s): I48.0 - Paroxysmal atrial fibrillation Status: Acute Assessment and Plan: Back in Atrial fib probably related to covid pneumonia and/CHF. Continue Amiodarone 200 mg daily as that was able to maintain sinus rhythm, and unsure if that was stopped since recent hospitalization at [facility]. On Warfarin for this and history of recurrent DVT. INR is therapeutic, continue Warfarin. (6) PVT (paroxysmal ventricular tachycardia): Code(s): I47.2 - Ventricular tachycardia Status: Acute History of Present Illness History of Present Illness Consult date/time: 05/31/22 17:23 Requesting physician: Dangelo Melo DO Consult reason: shortness of breath Reason For Visit: COVID+ PNE SOB CPAP Narrative: 76 yr old man who is my regular cardiology patient and who's PCP is Dr. Josep Sahu presents for a follow up visit regarding his cardiovascular status. 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 He can walk only short distances since a recent diagnosis of covid infection on 04/07/22. He had presented to [facility] and was hospitalized for 1.5 weeks. Sated he had covid pneumonia and discharged on oxygen at 6 l/m. States he started having more sob in last 1-2 days so he presented to ER. States no longer having palpitations on Amiodarone. Denies chest pain. No syncope or dizziness. ? Amiodarone was started on 09/21/19. He still feels palpitations but seems to be less often. Admits to snoring, waking up to use restroom and he may have some daytime tiredness. He does not like CPAP strap as it causes headaches and he is not sleeping well with it. He stopped using it but wants to retry it. EKG shows atrial fib rate is normal and no acute ST changes, and he is unsure if he was taking Amiodarone since hospitalization at [facility]. Hb 13.6, Plt 80. Trop .037, NTproBNP 2,040. INR 2.4.CXR shows atypical/viral pneumonia, possibly mild interstitial edema. Given Lasix 40 mg IV x 1. Cardiovascular Procedures Genetic Physician:: 11/25/19 [facility]: Ascending aortic replacement. 11/22/19 [facility] Cardiac cath: LM distal mild 30-40%, LAD mild diffuse, RCA mod 50-60% distal. Echo/MUGA:: 10/05/19 Echo: EF 55-60%, mod LVH, mod LAE, mild NANCY, mild AI, mild MAC, trace MR, mild TR, aortic root 4.5 cm. Electrophysiology:: 04/16/22 EKG: Sinus bradycardia at 54 bpm, IRBBB, QTc 442 ms. 12/26/20 EKG: Sinus rhythm, delayed R/S transition. 06/29/20 EKG: Sinus rhythm, PAC. 09/14/19 27 event monitor: Intermittent SVT, PAF, VT. HR range 34-189 bpm; average HR 72 bpm; 52% burden atrial fibrillation with 54 episodes; 13 episodes of SVT; 8 episodes of VT; 5 episodes of pauses with longest at 2.3 seconds. 10/18/19:
--- NOTE | 2022-05-31 17:52 | PC.NURSE ---
This patient, Osmel Aparicio Sr., was admitted to IMU Room 212-01. Patient/family oriented to hospital policies and general routines including ID bracelet, bed and alarms, visiting hours, pain management, procedures, bathroom and other care routines, personal items, smoking policy, room service/diet, and visiting hours. Information on how to activate the Rapid Response Team has been discussed. Patient/Family are encouraged to report perceived risks to care and to ask questions if they do not understand what they are told or what they should do.
[2022-05-31 19:29] LABS: Troponin I 0.047 ng/mL (0.000-0.034)
[2022-05-31] MEDS: WATER FOR IRRIGATION, STERILE 1,000 ML BOTTLE 1000 ML (21:43)
[2022-05-31 22:36] LABS: Troponin I 0.048 ng/mL (0.000-0.034)
[2022-06-01] VITALS (16 sets, daily range): BP systolic 106–129; BP diastolic 58–87; PULSE 59–107; RESP 16–39; TEMP 36.2–36.8; O2SAT 88–97
[2022-06-01] MEDS: FUROSEMIDE INJ 40 MG/4 ML VIAL 20 MG IV PUSH ×2 (02:35→08:24)
[2022-06-01 04:48] LABS: Basophils Percent Auto 0.1 % (0.2-1.2); Hematocrit 40.1 % (42.0-52.0); Hemoglobin 13.1 g/dL (14.0-18.0); Immature Granulocyte Absolute 0.03 K/mm3 (0.00-0.031); Immature Granulocyte Percent A 0.4 % (0-0.5); Lymphocytes Absolute Auto 0.58 K/mm3 (0.9-3.2); Mean Corpuscular HGB Conc 32.7 g/dl (32-36); Mean Corpuscular Hemoglobin 30.5 pg (26-34); Mean Corpuscular Volume 93.5 fl (80-100); Mean Platelet Volume 10.7 fl (7.4-10.4); Monocytes Absolute Auto 0.3 K/mm3 (0.1-0.6); Monocytes Percent Auto 3.6 % (2.6-8.5); Neutrophils Absolute Auto 7.3 K/mm3 (1.3-6.7); Neutrophils Percent Auto 88.9 % (45.5-73.1); Platelet Count Result 80 k/mm3 (150-375); Red Blood Count 4.29 M/mm3 (4.6-6.20); Red Cell Distribution Width 13.5 % (11.5-14.5); White Blood Count 8.3 K/mm3 (4.5-10.0)
[2022-06-01 05:01] LABS: INR 2.4; Prothrombin Time 25.6 Seconds (11.1-14.7)
[2022-06-01 05:07] LABS: Alanine Aminotransferase 18 U/L (6-50); Albumin Level 2.8 g/dL (3.5-5.1); Alkaline Phosphatase 80 U/L (38-126); Anion Gap 7 mmol/L (8-16); Aspartate Amino Transferase 22 U/L (17-59); Bilirubin,Total 1.4 mg/dL (0.2-1.3); Blood Urea Nitrogen 21 mg/dL (9-20); Calcium 7.4 mg/dL (8.4-10.2); Carbon Dioxide 28 mmol/L (22-30); Chloride 106 mmol/L (98-107); Estimated CRCL calculation 65 ml/min; Estimated Glomerular Filt Rate > 60; Glucose 171 mg/dL (65-110); Potassium 3.7 mmol/L (3.4-5.0); Sodium 141 mmol/L (137-145)
[2022-06-01 05:09] LABS: Lactate Dehydrogenase 938 U/L (313-618); Magnesium 2.2 mg/dL (1.6-2.3)
[2022-06-01 05:16] LABS: CRP 21.2 mg/dL (<1.0)
[2022-06-01 05:38] LABS: Thyroid Stimulating Hormone Reflex 0.554 uIU/mL (0.465-4.68)
[2022-06-01 06:56] LABS: D Dimer 6.79 ug/mL (<0.48)
[2022-06-01] MEDS: PANTOPRAZOLE 40 MG TABLET BY MOUTH (08:28)
[2022-06-01] MEDS: AMIODARONE HCL 200 MG TABLET BY MOUTH (08:28)
[2022-06-01] MEDS: TAMSULOSIN HCL 0.4 MG CAPSULE BY MOUTH (08:28)
[2022-06-01] MEDS: PRAVASTATIN SODIUM 10 MG TABLET BY MOUTH (08:28)
[2022-06-01] MEDS: MULTIVITAMINS THERAPEUTIC TAB (*BKC) 1 TABLET PO (08:28)
[2022-06-01] MEDS: ALBUTEROL SULFATE (*SP) AEROSOL 1 PUFF 2 PUFF INHALATION ×2 (08:28→19:00)
--- NOTE | 2022-06-01 09:09 | PM.PNCARD ---
Progress Note: A&P Assessment and Plan (1) Dyspnea: Code(s): R06.00 - Dyspnea, unspecified Status: Acute Assessment and Plan: Probably due to recent covid pneumonia. Elevated NTproBNP and CXR with possible mild pulm edema. Given Lasix 40 mg IV x1 for that. He is on Lasix 20 mg IV daily. Covid pneumonia or healthcare acquired pneumonia, management as per hospitalist. Obtain echo (which won't be done until Thursday as it is weekend). (2) Elevated troponin: Code(s): R77.8 - Other specified abnormalities of plasma proteins Status: Acute Assessment and Plan: Mild elevation. Trend to peak. Probably related to SOB with covid pneumonia and/or CHF. Symptoms do not suggest ACS and EKG shows no acute changes. (3) Coronary artery disease: Code(s): I25.10 - Atherosclerotic heart disease of [place] coronary artery without angina pectoris Status: Acute Assessment and Plan: Stable. (4) PAF (paroxysmal atrial fibrillation): Code(s): I48.0 - Paroxysmal atrial fibrillation Status: Acute Assessment and Plan: Back in Sinus rhythm. Continue Amiodarone 200 mg daily as that was able to maintain sinus rhythm. On Warfarin for this and history of recurrent DVT. INR is therapeutic, continue Warfarin. (5) PSVT (paroxysmal supraventricular tachycardia): Code(s): I47.1 - Supraventricular tachycardia Status: Acute (6) Dyslipidemia: Code(s): E78.5 - Hyperlipidemia, unspecified Status: Acute Assessment and Plan: On Pravastatin. Subjective Date/time seen: 06/01/22 09:09 Reports similar sob as yesterday. No chest pains. Exam Const: General: cooperative, healthy appearing and comfortable Resp: Auscultation: no crackles, no rales, no rhonchi, no wheezes and diminished lung sounds Cardio: Jugular venous distension: no JVD Rate: regular rate Rhythm: regular rhythm Heart sounds: no murmurs Peripheral pulses: dorsalis pedis present GI: GI Palp: No abdominal tenderness and Yes Soft to palpation Neuro: General: oriented to person, oriented to place and oriented to time Extrem: Right lower extremity: no edema Left lower extremity: no edema Objective Data Vital Signs Vital Signs: Vital Signs - 24 hr 05/31/22 14:55 05/31/22 15:05 05/31/22 15:08 Temperature 97.6 F Pulse Rate 88 71 Respiratory Rate 31 H Blood Pressure Pulse Oximetry 100 Oxygen Delivery Room Air CPAP Oxygen Flow Rate Fraction of Inspired Oxygen 05/31/22 15:09 05/31/22 15:10 05/31/22 15:06 Temperature Pulse Rate 84 80 Respiratory Rate 38 H 37 H Blood Pressure 124/82 124/82 Pulse Oximetry 100 100 Oxygen Delivery BiPAP Oxygen Flow Rate Fraction of Inspired Oxygen 05/31/22 15:18 05/31/22 16:01 05/31/22 16:16 Temperature Pulse Rate 84 76 84 Respiratory Rate 38 H 28 H 38 H Blood Pressure 94/61 L 138/78 132/93 H Pulse Oximetry 97 97 95 Oxygen Delivery Oxygen Flow Rate Fraction of Inspired Oxygen 05/31/22 16:46 05/31/22 17:16 05/31/22 17:45 Temperature Pulse Rate 76 91 Respiratory Rate 27 H 40 H Blood Pressure 122/85 175/160 H Pulse Oximetry 96 93 Oxygen Delivery BiPAP Oxygen Flow Rate Fraction of Inspired Oxygen 60 05/31/22 17:45 05/31/22 18:00 05/31/22 18:00 Temperature Pulse Rate 63 71 Respiratory Rate 39 H Blood Pressure Pulse Oximetry 93 96 Oxygen Delivery BiPAP BiPAP Oxygen Flow Rate Fraction of Inspired Oxygen 60 05/31/22 17:45 05/31/22 20:00 05/31/22 20:54 Temperature 98.3 F 97.7 F Pulse Rate 86 88 Respiratory Rate 42 H 36 H Blood Pressure 125/81 128/79 Pulse Oximetry 94 96 92 Oxygen Delivery High Flow Nasal Cannula Oxygen Flow Rate 15 Fraction of Inspired Oxygen 05/31/22 20:00 05/31/22 20:00 05/31/22 23:20 Temperature 97.1 F L Pulse Rate 66 82 Respiratory Rate 26 H Blood Pressure 115/79 Pulse Oximetry 92 94 Oxygen Delivery H
--- NOTE | 2022-06-01 11:03 | PM.IMPN ---
Progress Note: A&P Assessment and Plan (1) Acute respiratory failure with hypoxia: Code(s): J96.01 - Acute respiratory failure with hypoxia Status: Acute Assessment and Plan: The patient tested positive for COVID 19 on 05/08/2022 and he was recently hospitalized at an outside facility as detailed in [facility]. Pulmonary consult pending ? PNA will start on levaquin for ? pna sputum cx and blooc cx pending continue respiratory support will hold on steroids - defer to pulmonary (2) Elevated troponin: Code(s): R77.8 - Other specified abnormalities of plasma proteins Status: Acute Assessment and Plan: appreciate cardiology input (3) Abnormal chest x-ray: Code(s): R93.89 - Abnormal findings on diagnostic imaging of other specified body structures Status: Acute Assessment and Plan: pna vs chf (4) Urinary retention: Code(s): R33.9 - Retention of urine, unspecified Status: Acute Assessment and Plan: Bladder scan showed over 500 mL of urine in the bladder and a Ibanez catheter has been inserted. Continue tamsulosin. He will need a voiding trial prior to discharge. add finasteride (5) Chronic anticoagulation: Code(s): Z79.01 - [facility] (current) use of anticoagulants Status: Acute Assessment and Plan: INR therapeutic at 2.4. Continue warfarin and monitor daily. (6) Diastolic congestive heart failure: Code(s): I50.30 - Unspecified diastolic (congestive) heart failure Status: Acute Assessment and Plan: diuresis per cardiology (7) Paroxysmal atrial fibrillation: Code(s): I48.0 - Paroxysmal atrial fibrillation Status: Acute Assessment and Plan: Currently in a sinus rhythm. Continue amiodarone. (8) Thrombocytopenia: Code(s): D69.6 - Thrombocytopenia, unspecified Status: Acute Assessment and Plan: monitor (9) Obstructive sleep apnea on CPAP: Code(s): G47.33 - Obstructive sleep apnea (adult) (pediatric); Z99.89 - Dependence on other enabling machines and devices Status: Acute Subjective Date/time seen: 06/01/22 11:03 now on airvo no new complaints no cp Review of Systems Review of Systems: 10 point ROS negative except as stated in HPI / Subjective Exam Narrative: General: Moderately ill-appearing male sitting up in bed on BiPAP. Weight: 90 kg. BMI: 26.2. HEENT: PERRL, EOMI. Conjunctivae anicteric. Oral mucosa appears tacky through the BiPAP mask. Neck: Supple. No obvious jugular venous distension. Respiratory: Tolerating BiPAP, able to speak through the mask. He appears to be in no acute respiratory distress at this time. There are fine crackles heard anteriorly and at the flanks. No significant wheezing. Cardiovascular: Regular rate with occasional ectopy. No murmur. Gastrointestinal: Abdomen is nontender with positive bowel sounds. Bladder feels distended. No guarding or rebound tenderness. Skin: Warm and dry. There is hyperpigmentation of the lower legs, perhaps from amiodarone. Extremities: No cyanosis, clubbing, or edema. No palpable knots or cords. Negative Parag sign bilaterally. Radial and pedal pulses intact. Neurological: Alert and oriented Cranial nerves 2-12 are grossly intact. No gross focal deficits to casual conversation. Psychiatric: Pleasant and cooperative with normal mood and affect. Judgment and insight intact. Objective Data Vital Signs Vital Signs: Vital Signs - 24 hr 05/31/22 14:55 05/31/22 15:05 05/31/22 15:08 Temperature 97.6 F Pulse Rate 88 71 Respiratory Rate 31 H Blood Pressure Pulse Oximetry 100 Oxygen Delivery Room Air CPAP Oxygen Flow Rate Fraction of Inspired Oxygen 05/31/22 15:09 05/31/22 15:10 05/31/22 15:06 Temperature Pulse Rate 84 80 Respiratory Rate 38 H 37 H Blood Pressure 124/82 124/82 Pulse Oximetry 100 100 Oxygen Delivery BiPAP Oxygen Flow Rate
[2022-06-01] MEDS: WARFARIN (*PBKC) 3 MG TABLET PO (17:58)
--- NOTE | 2022-06-01 18:30 | PM.CNPUL ---
Assessment and Plan Assessment and plan (1) Acute respiratory failure with hypoxia: Code(s): J96.01 - Acute respiratory failure with hypoxia Status: Acute Assessment and Plan: Patient was diagnosed with COVID on 05/08/2022 and admitted to the hospital from 05/13 through with COVID pneumonia requiring high-flow nasal cannula oxygen at 40 L. Patient was treated with dexamethasone and baricitinb and reportedly developed a healthcare associated pneumonia on 05/21 and received 2 days of Zosyn.pneumonia. He was discharged on 05/23 on 6 L nasal cannula. He went to a [facility] for 1 day and then signed out against medical advice but did not receive any antibiotics. He presented on 05/31 with worsening shortness of breath, hypoxemic respiratory failure with a blood gas of 7.48/32/99 on BiPAP 10/07 and 80%. His chest x-ray shows diffuse interstitial and alveolar infiltrates bilaterally. the etiology of patient's acute hypoxemic respiratory failure include pneumonia, post COVID interstitial lung disease -organizing pneumonia, fluid overload and pulmonary emboli. 06/01 04:00 15 L NC sat 94% 06/01 17:00 Airvo 60 L 85% sats 95% Patient is currently receiving Zosyn and I will add vancomycin and Levaquin for additional g positive, g negative and atypical coverage. I would like to treat him with antibiotics for at least 24 hours prior to initiating steroids if there is a post COVID interstitial lung disease -organizing pneumonia. I will obtain a CT scan of the chest to assess for this. Patient receiving 20 mg of Lasix IV a day and agree with diuresis as tolerated by his cardiac and renal systems. Will follow with you. 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 His INR today is 2.4. He has a dye allergy so I will not obtain a CT angiogram of the chest as he is already treated at this point. I will obtain lower extremity and upper extremity Dopplers on 06/02/2021. (3) Obstructive sleep apnea on CPAP: Code(s): G47.33 - Obstructive sleep apnea (adult) (pediatric); Z99.89 - Dependence on other enabling machines and devices Status: Acute Assessment and Plan: The patient carries a history of obstructive sleep apnea diagnosed by sleep study in 2017 at [facility]. Told had DONN and CPAP prescribed it and wears it once in awhile but could not sleep with it on. Last use was 1 week before COVID. The patient states he is not able to wear the CPAP mask while he was the sick. DME company in [place] But does not know the name of the company. The cecy will bring his machine in to the hospital on 06/02/2022. History of Present Illness History of Present Illness Consult date: 06/01/22 Chief complaint: Acute respiratory failure with hypoxia, CHF Narrative: 06/01/2022: This is a new pulmonary consult for hypoxemic respiratory failure post COVID pneumonia. 76-year-old male with a history of paroxysmal atrial fibrillation on amiodarone, ascending aortic aneurysm status post repair, right calf DVT 1978 and recurrent DVT 1988 on chronic anticoagulation prior tobacco use with COPD and obstructive sleep apnea noncompliant with CPAP. patient was in his usual health state of health with no respiratory limitations in his activities of daily living. 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 The patient smoked cigarettes intermittently from age [age] at 1 pack per day, from [age] at 1 pack per day for total of 18 pack years. He was exposed to secondhand smoke through his dad. He denies vaping, illicit drug use, sandblasting, welding, asbestos were, professional painting or
[2022-06-01] MEDS: IPRATROPIUM BR 0.02% INH SOLN 0.5 MG/2.5 ML VIAL INHALATION (20:35)
[2022-06-01] MEDS: ALBUTEROL SULFATE NEB 2.5 MG/3 ML INH INHALATION (20:35)
[2022-06-01] MEDS: FINASTERIDE 5 MG TABLET PO (21:22)
[2022-06-02] VITALS (25 sets, daily range): BP systolic 104–128; BP diastolic 50–76; PULSE 75–103; RESP 12–32; TEMP 36.5–37.1; O2SAT 94–98; BMI 26.6
--- NOTE | 2022-06-02 | ECHO_ITS ---
Patient Info Name: Osmel Aparicio Age: 77 years : 1945 Gender: Male Ht: 73 in Wt: 200 lbs BSA: 2.17 m2 BP: 128 / 74 mmHg Technical Quality: Fair Exam Date: 06/02/2022 11:15 AM Exam Location: [facility] Patient Status: Inpatient Admit Date: 05/31/2022 Staff Ordering Physician: Melchor Beyer DO Door Framer: Gustavo Mireles, NASREEN, RT Attending Provider: Toña Bhatt MD Referring Physician: Pepito CANTU; Exam Type: CA echo doppler color flow Study Info Indications R06.02 - Shortness of breath Complete two-dimensional, color flow and Doppler transthoracic echocardiogram is performed. Strain analysis performed. Summary 1. Complete two-dimensional, color flow and Doppler transthoracic echocardiogram is performed. 2. Left ventricular chamber dimension is normal. 3. Left ventricular systolic function is normal, estimated at 55-60%. 4. There is mildly increased left ventricular wall thickness. 5. The left ventricular diastolic function is normal. 6. E/e' 6 is not elevated. 7. Global longitudinal strain is abnormal at -13.5%. 8. Right ventricular systolic function is reduced based on an abnormal TAPSE 1.4 cm. 9. Left atrial chamber dimension is mildly enlarged. 10. There is moderate aortic valve sclerosis. 11. There is mild aortic valve regurgitation. 12. The mitral valve has mildly calcified annulus. 13. There is mild mitral valve regurgitation. 14. There is mild to moderate tricuspid valve regurgitation. 15. Mild pulmonary hypertension, estimated pulmonary arterial systolic pressure is 47 mmHg. 16. The aortic root size at the sinus of Valsalva is mildly dilated with Aortic root 4.4 cm. Left Ventricle E/e' 6 is not elevated. Global longitudinal strain is abnormal at -13.5%. Left ventricular chamber dimension is normal. Left ventricular systolic function is normal, estimated at 55-60%. There is mildly increased left ventricular wall thickness. The left ventricular diastolic function is normal. Right Ventricle Right ventricular systolic function is reduced based on an abnormal TAPSE 1.4 cm. Right ventricular chamber dimension is not well visualized. Left Atria Left atrial chamber dimension is mildly enlarged. Right Atria Right atrial chamber dimension is normal. Aortic Valve The aortic valve is trileaflet. There is moderate aortic valve sclerosis. There is no aortic valve stenosis. There is mild aortic valve regurgitation. Pulmonic Valve There is no pulmonic regurgitation. Mitral Valve The mitral valve has mildly calcified annulus. There is no mitral valve stenosis. There is mild mitral valve regurgitation. Tricuspid Valve There is mild to moderate tricuspid valve regurgitation. Mild pulmonary hypertension, estimated pulmonary arterial systolic pressure is 47 mmHg. Pericardium/Pleural There is no pericardial effusion. Inferior Vena Cava Normal inferior vena cava with >50% collapse upon inspiration consistent with normal right atrial pressure, 5 mmHg. Aorta The aortic root size at the sinus of Valsalva is mildly dilated with Aortic root 4.4 cm. Left Ventricular Outflow Tract Name Value Normal LVOT 2D LVOT Diameter 2.3 cm L
[2022-06-02 04:51] LABS: Hematocrit 38.4 % (42.0-52.0); Hemoglobin 12.7 g/dL (14.0-18.0); Mean Corpuscular HGB Conc 33.1 g/dl (32-36); Mean Corpuscular Hemoglobin 30.5 pg (26-34); Mean Corpuscular Volume 92.1 fl (80-100); Mean Platelet Volume 10.4 fl (7.4-10.4); Platelet Count Result 77 k/mm3 (150-375); Red Blood Count 4.17 M/mm3 (4.6-6.20); Red Cell Distribution Width 13.2 % (11.5-14.5); White Blood Count 7.7 K/mm3 (4.5-10.0)
[2022-06-02 05:04] LABS: INR 3.2
[2022-06-02 05:23] LABS: Anion Gap 6 mmol/L (8-16); Blood Urea Nitrogen 29 mg/dL (9-20); Calcium 7.6 mg/dL (8.4-10.2); Carbon Dioxide 28 mmol/L (22-30); Chloride 100 mmol/L (98-107); Estimated CRCL calculation 64 ml/min; Estimated Glomerular Filt Rate > 60; Glucose 105 mg/dL (65-110); Potassium 3.3 mmol/L (3.4-5.0); Sodium 134 mmol/L (137-145)
[2022-06-02 05:36] LABS: NT Pro B Type Natriuretic Pept 1340 pg/mL (5-100); Troponin I 0.043 ng/mL (0.000-0.034)
--- NOTE | 2022-06-02 07:56 | PM.PNCARD ---
Progress Note: A&P Assessment and Plan (1) Dyspnea: Code(s): R06.00 - Dyspnea, unspecified Status: Acute Assessment and Plan: Probably due to recent covid pneumonia. Elevated NTproBNP and CXR with possible mild pulm edema. Given Lasix 40 mg IV x1 for that. He is on Lasix 20 mg IV daily. Covid pneumonia or healthcare acquired pneumonia, management as per hospitalist. Obtain echo today. (2) Elevated troponin: Code(s): R77.8 - Other specified abnormalities of plasma proteins Status: Acute Assessment and Plan: Mild elevation. Peaked at 0.048. Probably related to SOB with covid pneumonia and/or CHF. Symptoms do not suggest ACS and EKG shows no acute changes. (3) Coronary artery disease: Code(s): I25.10 - Atherosclerotic heart disease of [place] coronary artery without angina pectoris Status: Acute Assessment and Plan: Stable. (4) PAF (paroxysmal atrial fibrillation): Code(s): I48.0 - Paroxysmal atrial fibrillation Status: Acute Assessment and Plan: Back in Sinus rhythm. Continue Amiodarone 200 mg daily as that was able to maintain sinus rhythm. On Warfarin for this and history of recurrent DVT. INR is 3.2 today. Hold Warfarin given gross hematuria in tamayo bag. (5) PSVT (paroxysmal supraventricular tachycardia): Code(s): I47.1 - Supraventricular tachycardia Status: Acute (6) Dyslipidemia: Code(s): E78.5 - Hyperlipidemia, unspecified Status: Acute Assessment and Plan: On Pravastatin. Subjective Date/time seen: 06/02/22 07:56 Reports some improvement in sob. States he has issues with BPH. Exam Const: General: cooperative, healthy appearing and comfortable Resp: Auscultation: no crackles, no rales, no rhonchi, no wheezes and diminished lung sounds Cardio: Jugular venous distension: no JVD Rate: regular rate Rhythm: regular rhythm Heart sounds: no murmurs Peripheral pulses: dorsalis pedis present GI: GI Palp: No abdominal tenderness and Yes Soft to palpation Neuro: General: oriented to person, oriented to place and oriented to time Extrem: Right lower extremity: no edema Left lower extremity: no edema Objective Data Vital Signs Vital Signs: Vital Signs - 24 hr 06/01/22 08:28 06/01/22 08:31 06/01/22 08:32 Temperature Pulse Rate 65 60 72 Respiratory Rate 22 H 22 H Blood Pressure Pulse Oximetry 93 Oxygen Delivery High Flow Nasal Cannula Oxygen Flow Rate 60 Fraction of Inspired Oxygen 80 06/01/22 08:00 06/01/22 10:00 06/01/22 08:00 Temperature Pulse Rate 63 80 Respiratory Rate Blood Pressure Pulse Oximetry 91 Oxygen Delivery High Flow Nasal Cannula Oxygen Flow Rate 15 Fraction of Inspired Oxygen 06/01/22 12:00 06/01/22 12:00 06/01/22 16:00 Temperature 98.2 F Pulse Rate 65 Respiratory Rate 28 H Blood Pressure 119/73 Pulse Oximetry 97 96 96 Oxygen Delivery High Flow Therapy with Na High Flow Nasal Cannula Oxygen Flow Rate 60 60 Fraction of Inspired Oxygen 06/01/22 16:00 06/01/22 12:00 06/01/22 14:00 Temperature 97.7 F Pulse Rate 64 80 77 Respiratory Rate 16 Blood Pressure 129/87 Pulse Oximetry 95 Oxygen Delivery Oxygen Flow Rate Fraction of Inspired Oxygen 06/01/22 16:00 06/01/22 18:00 06/01/22 19:00 Temperature Pulse Rate 59 L 80 101 H Respiratory Rate 34 H Blood Pressure Pulse Oximetry 88 L Oxygen Delivery BiPAP Oxygen Flow Rate Fraction of Inspired Oxygen 06/01/22 19:00 06/01/22 19:00 06/01/22 20:00 Temperature 98.3 F Pulse Rate 101 H 101 H 107 H Respiratory Rate 35 H 35 H 39 H Blood Pressure 108/60 Pulse Oximetry 88 L 88 L Oxygen Delivery Mechanical Ventilation Oxygen Flow Rate Fraction of Inspired Oxygen 100 06/01/22 23:36 06/01/22 20:00 06/01/22 22:00 Temperature 97.6 F Pulse Rate 81 84 84 Respiratory Rate 20 Blood Pressure 121/83 Pulse Ox
[2022-06-02] MEDS: IPRATROPIUM BR 0.02% INH SOLN 0.5 MG/2.5 ML VIAL INHALATION ×3 (08:53→20:10)
[2022-06-02] MEDS: ALBUTEROL SULFATE NEB 2.5 MG/3 ML INH INHALATION ×3 (08:53→20:10)
--- NOTE | 2022-06-02 09:27 | PM.PNPUL ---
Progress Note: A&P Assessment and Plan (1) Acute respiratory failure with hypoxia: Code(s): J96.01 - Acute respiratory failure with hypoxia Status: Acute Assessment and Plan: 77-year-old man with history of recurrent DVT chronically on anticoagulation, history of aortic aneurysm repair, history of paroxysmal atrial fibrillation chronically on amiodarone hospitalized at another hospital for COVID 19 infection, reportedly developed hospital-acquired pneumonia and received antibiotics prior to discharging to long-term. The patient returned with shortness of breath. Chest diagnostic studies have shown bilateral infiltrates. On physical exam the patient has fine crackles bilaterally which in conjunction with the chest x-ray may suggest interstitial lung disease related to COVID-19 infection and less likely due to amiodarone pulmonary toxicity. The patient still requiring high oxygen flows via nasal cannula. He has no signs to suggest ongoing pneumonia for which he has been on antibiotics. Plan: patient is scheduled to undergo chest CT. He is also on treatment for possible congestive heart failure. Further recommendations depending upon the chest CT findings. in the meantime I would continue with current regimen consisting of antibiotics, meds for CHF, anticoagulation meds, and also amiodarone. (2) Paroxysmal atrial fibrillation: Code(s): I48.0 - Paroxysmal atrial fibrillation Status: Acute (3) Diastolic congestive heart failure: Code(s): I50.30 - Unspecified diastolic (congestive) heart failure Status: Acute (4) PAF (paroxysmal atrial fibrillation): Code(s): I48.0 - Paroxysmal atrial fibrillation Status: Acute (5) Recurrent deep vein thrombosis (DVT): Code(s): I82.409 - Acute embolism and thrombosis of unspecified deep veins of unspecified lower extremity Status: Acute (6) Dyspnea: Code(s): R06.00 - Dyspnea, unspecified Status: Acute (7) Chronic anticoagulation: Code(s): Z79.01 - senior living (current) use of anticoagulants Status: Acute Subjective Date/time seen: 06/02/22 09:27 Patient was diagnosed with COVID? on 05/08/2022 and admitted to the hospital from 05/13 through with COVID pneumonia requiring high-flow nasal cannula oxygen at 40 L. Patient was treated with dexamethasone and baricitinb and reportedly developed a healthcare associated pneumonia on 05/21 and received 2 days of Zosyn.pneumonia. ? He was discharged on 05/23 on 6 L nasal cannula. ? He went to a long-term for 1 day and then signed out against medical advice but did not receive any antibiotics.? He presented on 05/31 with worsening shortness of breath, hypoxemic respiratory failure with a blood gas of 7.48/32/99 on BiPAP 10/07 and 80%.? His chest x-ray shows diffuse interstitial and alveolar infiltrates bilaterally. Patient continues to have some shortness of breath unchanged over the last 24 hours. He received BiPAP support last night, 10/07, currently on high-flow nasal cannula. Current complaints include shortness of breath mild cough with no sputum production. He has no orthopnea. He has no wheezing or lower extremity edema. He has been afebrile on antibiotics. Review of Systems Review of Systems: System review is negative except as noted in HPI and below. Exam Narrative: GENERAL APPEARANCE: Well developed, well nourished, alert and cooperative, and appears to be in mild respiratory distress while in bed and on high-flow nasal cannula SKIN: Inspection of the skin reveals no rashes, ulcerations or petechiae. HEENT: Sclerae anicteric and conjunctivae pink and moist. Extraocular movements were intact and pupils were equal, round. NECK: Supple. There was no thyroid enlargement, and no tenderness, or masses were felt. LUNGS: Auscultation of the lungs revealed crackles at bases posteriorly bilaterally, no wheezing CARDIAC: There was a regular rate and rhythm withou
[2022-06-02] MEDS: TAMSULOSIN HCL 0.4 MG CAPSULE BY MOUTH (10:04)
[2022-06-02] MEDS: PANTOPRAZOLE 40 MG TABLET BY MOUTH (10:04)
[2022-06-02] MEDS: AMIODARONE HCL 200 MG TABLET BY MOUTH (10:05)
[2022-06-02] MEDS: PRAVASTATIN SODIUM 10 MG TABLET BY MOUTH (10:05)
[2022-06-02] MEDS: MULTIVITAMINS THERAPEUTIC TAB (*BKC) 1 TABLET PO (10:05)
[2022-06-02] MEDS: POTASSIUM CHLORIDE 20 MEQ TABLET 40 MEQ PO (10:21)
[2022-06-02] MEDS: HYDROcodone/acetaminophen (*CRX) 5-325 MG TABLET 1 TAB PO (10:22)
--- NOTE | 2022-06-02 12:46 | PM.IMPN ---
Progress Note: A&P Assessment and Plan (1) Acute respiratory failure with hypoxia: Code(s): J96.01 - Acute respiratory failure with hypoxia Status: Acute Assessment and Plan: The patient tested positive for COVID 19 on 05/08/2022 and he was recently hospitalized at an outside facility as detailed in HP. Pulmonary consult pending ? PNA will start on vanc with Zosyn Levaquin Monitor kidney function daily sputum cx and blooc cx pending continue respiratory support will hold on steroids - defer to pulmonary (2) Elevated troponin: Code(s): R77.8 - Other specified abnormalities of plasma proteins Status: Acute Assessment and Plan: appreciate cardiology input (3) Abnormal chest x-ray: Code(s): R93.89 - Abnormal findings on diagnostic imaging of other specified body structures Status: Acute Assessment and Plan: pna vs chf (4) Urinary retention: Code(s): R33.9 - Retention of urine, unspecified Status: Acute Assessment and Plan: Bladder scan showed over 500 mL of urine in the bladder and a Ibanez catheter has been inserted. Continue tamsulosin. He will need a voiding trial prior to discharge. add finasteride Having some hematuria, likely from trauma from the Ibanez catheter. 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 Continue warfarin and monitor daily. (6) Diastolic congestive heart failure: Code(s): I50.30 - Unspecified diastolic (congestive) heart failure Status: Acute Assessment and Plan: diuresis per cardiology (7) Paroxysmal atrial fibrillation: Code(s): I48.0 - Paroxysmal atrial fibrillation Status: Acute Assessment and Plan: Currently in a sinus rhythm. Continue amiodarone. (8) Thrombocytopenia: Code(s): D69.6 - Thrombocytopenia, unspecified Status: Acute Assessment and Plan: monitor (9) Obstructive sleep apnea on CPAP: Code(s): G47.33 - Obstructive sleep apnea (adult) (pediatric); Z99.89 - Dependence on other enabling machines and devices Status: Acute Subjective Date/time seen: 06/02/22 12:46 Patient is currently on Airvo - 60liters of flow with 100% FiO2. Reports his main concern is his Ibanez catheter is causing some irritation having some hematuria. Exam Narrative: General: Moderately ill-appearing male sitting up in bed on BiPAP. Weight: 90 kg. BMI: 26.2. HEENT: PERRL, EOMI. Conjunctivae anicteric. Oral mucosa appears tacky through the BiPAP mask. Neck: Supple. No obvious jugular venous distension. Respiratory: Tolerating BiPAP, able to speak through the mask. He appears to be in no acute respiratory distress at this time. There are fine crackles heard anteriorly and at the flanks. No significant wheezing. Cardiovascular: Regular rate with occasional ectopy. No murmur. Gastrointestinal: Abdomen is nontender with positive bowel sounds. Bladder feels distended. No guarding or rebound tenderness. Skin: Warm and dry. There is hyperpigmentation of the lower legs, perhaps from amiodarone. Extremities: No cyanosis, clubbing, or edema. No palpable knots or cords. Negative Parag sign bilaterally. Radial and pedal pulses intact. Neurological: Alert and oriented Cranial nerves 2-12 are grossly intact. No gross focal deficits to casual conversation. Psychiatric: Pleasant and cooperative with normal mood and affect. Judgment and insight intact. Objective Data Vital Signs Vital Signs: Vital Signs - 24 hr 06/01/22 16:00 06/01/22 16:00 06/01/22 14:00 Temperature 97.7 F Pulse Rate 64 77 Respiratory Rate 16 Blood Pressure 129/87 Pulse Oximetry 96 95 Oxygen Delivery High Flow Nasal Cannula Oxygen Flow Rate 60 Fraction of Inspired Oxygen 06/01/22 16:00 06/01/22
[2022-06-02 17:15] LABS: INR 4.1; Prothrombin Time 38.8 Seconds (11.1-14.7)
--- NOTE | 2022-06-02 18:20 | WPDURCON ---
Assessment and Plan Assessment and plan (1) Benign prostatic hyperplasia: Code(s): N40.0 - Benign prostatic hyperplasia without lower urinary tract symptoms Status: Acute (2) Gross hematuria: Code(s): R31.0 - Gross hematuria Status: Acute Assessment and Plan: Agree decision to add finasteride to tamsulosin to maximize medical management for his BPH Currently, I will assume his transient hematuria is related to catheter trauma. Once he is more ambulatory we will plan a voiding trial with subsequent repeat urinalysis. If hematuria clears following catheter removal he probably needs no further evaluation. Urology Consult Note HPI Date Seen: 06/02/22 Requesting Physician: Toña Bhatt MD Primary Care Provider: Josep Sahu MD Consult Narrative Narrative: Osmel Aparicio Sr. is a 77 year old male, previously seen in our practice but not since 2016. He has extensive cardiopulmonary comorbidities as outlined elsewhere. From urological standpoint, as known longstanding bladder outlet obstruction secondary to BPH. When I last saw him in 2016 he was responding nicely to finasteride. Summer along the line that was discontinued in is now managed with tamsulosin. At home he had some mild slowing of stream but no sensation of incomplete emptying. Since hospitalization with limitation in mobilization he has developed increasing sense of incomplete emptying and slowing of his stream. A bladder scan showed a residual volume of 500 cc. A Ibanez catheter was placed without difficulty. Since catheter placement he has had some scant hematuria and occasional bladder spasms. Review of Systems Cardiovascular: Cardiovascular: Denies chest pain, Denies lightheadedness, Denies palpitations and Denies dyspnea Respiratory: Respiratory: Denies dyspnea Gastrointestinal: Gastrointestinal: Denies diarrhea, Denies nausea and Denies vomiting Genitourinary: Genitourinary: Denies hematuria and Denies dysuria Endocrine: Endocrine: Denies palpitations [facility] Past Medical History Medical History (Updated 06/02/22 @ 18:24 by Cristiano Winter MD) Adenomatous colon polyp Adrenal adenoma Arthritis Ascending aortic aneurysm Status post repair and November 2019 at [place]. Basal cell carcinoma, face Benign prostatic hyperplasia Chronic anticoagulation Coronary artery disease COVID-19 (05/08/22) Diastolic congestive heart failure Diverticulitis Hemorrhoids Hypertension Migraine headache Obstructive sleep apnea on CPAP Paroxysmal atrial fibrillation Recurrent deep venous thrombosis Surgical History Surgical History (Updated 05/31/22 @ 22:35 by Nina Alcazar PA-C) History of appendectomy History of basal cell carcinoma excision History of cardiac catheterization (11/21/19) Mild 30 to 40% stenosis of the distal left main, mild diffuse LAD stenosis, 50 to 60% moderate distal RCA stenosis. History of carpal tunnel surgery History of cataract surgery History of elbow surgery History of hemorrhoidectomy History of left knee replacement History of repair of left rotator cuff History of right hip replacement History of vasectomy Status post ascending aortic aneurysm repair (11/25/19) Family History Family History (Updated 05/31/22 @ 22:24 by Nina Alcazar PA-C) Father Heart disease Mother Cancer Unknown Cancer Grandparent Heart disease Father Family history of cardiovascular disease Grandparent Family history of cardiovascular disease Mother Family history of malignant neoplasm of breast in first degree relative Other Family history of malignant neoplasm of breast Social History Social History (Updated 05/31/22 @ 22:25 by Nina Alcazar PA-C) Social History: Surrogate medical decision maker: cecy Chandra. Code status: Full code. Smoking packs per day: 1 Smoking cigarettes per day: 20.0 Years smoked: 15 Smoking pack-years: 15.
[2022-06-02] MEDS: FINASTERIDE 5 MG TABLET PO (20:40)
[2022-06-03] VITALS (27 sets, daily range): BP systolic 104–119; BP diastolic 58–81; PULSE 72–100; RESP 18–38; TEMP 36.6–37.7; O2SAT 83–95
[2022-06-03] MEDS: IPRATROPIUM BR 0.02% INH SOLN 0.5 MG/2.5 ML VIAL INHALATION ×4 (01:50→20:40)
[2022-06-03] MEDS: ALBUTEROL SULFATE NEB 2.5 MG/3 ML INH INHALATION ×4 (01:50→20:40)
[2022-06-03 07:16] LABS: Estimated CRCL calculation 70 ml/min; Estimated Glomerular Filt Rate > 60
[2022-06-03 07:24] LABS: Vancomycin Trough 12.7 ug/mL (10.0-20.0)
[2022-06-03 07:25] LABS: INR 3.5; Prothrombin Time 34.2 Seconds (11.1-14.7)
--- NOTE | 2022-06-03 07:39 | WPDUROPN2 ---
Progress Note: A&P Assessment and Plan (1) Gross hematuria: Code(s): R31.0 - Gross hematuria Status: Acute (2) Urinary retention: Code(s): R33.9 - Retention of urine, unspecified Status: Acute Assessment and Plan: Tolerating catheter and urine clear Voiding trial when more ambulatory Subjective Subjective Date/Time Seen: 06/03/22 07:39 Tolerating catheter / urine clear Review of Systems Cardiovascular: Cardiovascular: Denies chest pain, Denies lightheadedness, Denies palpitations and Denies dyspnea Respiratory: Respiratory: Denies dyspnea Gastrointestinal: Gastrointestinal: Denies diarrhea, Denies nausea and Denies vomiting Genitourinary: Genitourinary: Denies hematuria and Denies dysuria Endocrine: Endocrine: Denies palpitations Exam Const: General: no acute distress Resp: Effort & Inspection: normal respiratory effort GI: Inspection: non-distended GI Palp: No abdominal tenderness and No Guarding due to palpation present (GI) Auscultation: normal bowel sounds Urinary Catheter: Urinary Catheter: patent and draining and urine clear Objective Data Vital Signs Vital Signs: Vital Signs - 24 hr 06/02/22 07:46 06/02/22 08:53 06/02/22 09:04 Temperature 98.1 F Pulse Rate 96 84 89 Respiratory Rate 12 22 H 26 H Blood Pressure 121/76 Pulse Oximetry 95 96 Oxygen Delivery High Flow Therapy with Na Oxygen Flow Rate 60 Fraction of Inspired Oxygen 90 06/02/22 09:11 06/02/22 10:05 06/02/22 08:00 Temperature Pulse Rate 92 102 H 80 Respiratory Rate 22 H Blood Pressure Pulse Oximetry Oxygen Delivery Oxygen Flow Rate Fraction of Inspired Oxygen 06/02/22 10:00 06/02/22 08:00 06/02/22 12:00 Temperature 98.2 F Pulse Rate 89 91 Respiratory Rate 18 Blood Pressure 110/63 Pulse Oximetry 96 96 Oxygen Delivery High Flow Therapy with Na Oxygen Flow Rate 60 Fraction of Inspired Oxygen 90 06/02/22 12:00 06/02/22 12:00 06/02/22 14:40 Temperature Pulse Rate 97 82 Respiratory Rate 20 Blood Pressure Pulse Oximetry 96 Oxygen Delivery High Flow Therapy with Na Oxygen Flow Rate 60 Fraction of Inspired Oxygen 90 06/02/22 14:53 06/02/22 14:00 06/02/22 16:00 Temperature Pulse Rate 85 91 Respiratory Rate 20 Blood Pressure Pulse Oximetry 96 Oxygen Delivery High Flow Therapy with Na Oxygen Flow Rate 60 Fraction of Inspired Oxygen 90 06/02/22 16:00 06/02/22 16:00 06/02/22 15:48 Temperature 98.4 F Pulse Rate 80 77 88 Respiratory Rate 22 H Blood Pressure 121/68 Pulse Oximetry 94 95 Oxygen Delivery High Flow Therapy with Na Oxygen Flow Rate 60 Fraction of Inspired Oxygen 90 06/02/22 18:00 06/02/22 20:12 06/02/22 20:13 Temperature Pulse Rate 91 91 103 H Respiratory Rate 20 22 H Blood Pressure Pulse Oximetry 96 Oxygen Delivery High Flow Therapy with Na Oxygen Flow Rate 60 Fraction of Inspired Oxygen 90 06/02/22 20:24 06/02/22 20:00 06/02/22 20:00 Temperature 98.8 F Pulse Rate 99 84 94 Respiratory Rate 20 32 H Blood Pressure 104/50 L Pulse Oximetry 98 Oxygen Delivery Oxygen Flow Rate Fraction of Inspired Oxygen 06/02/22 20:00 06/02/22 22:00 06/02/22 23:35 Temperature 97.7 F Pulse Rate 94 75 83 Respiratory Rate 20 28 H Blood Pressure 120/70 Pulse Oximetry 96 94 Oxygen Delivery High Flow Therapy with Na Oxygen Flow Rate 60 Fraction of Inspired Oxygen 90 06/03/22 00:00 06/03/22 00:00 06/03/22 01:50 Temperature Pulse Rate 88 88 77 Respiratory Rate 28 H 20 Blood Pressure Pulse Oximetry 94 Oxygen Delivery High Flow Therapy with Na Oxygen Flow Rate 60 Fraction of Inspired Oxygen 90 06/03/22 02:01 06/03/22 02:01 06/03/22 03:51 Temperature 99.4 F Pulse Rate 82 77 88 Respiratory Rate 20 20 26 H Blood Pressure 118/65 Pulse Oximetry 92 93 Oxygen Delivery High Flow Thera
--- NOTE | 2022-06-03 08:15 | PM.PNCARD ---
Progress Note: A&P Assessment and Plan (1) Dyspnea: Code(s): R06.00 - Dyspnea, unspecified Status: Acute Assessment and Plan: Probably due to recent covid pneumonia and possibly pulm embolism. Elevated NTproBNP and CXR with possible mild pulm edema. Given Lasix 40 mg IV x1 for that. He is on Lasix 20 mg IV daily. Covid pneumonia or healthcare acquired pneumonia, management as per hospitalist. Echo shows EF 55-60%, mild LVH, RV hypokinesis, mild LAE, mild MR, mild-mod TR, RVSP 47 mmHg, Aortic root size 4.4 cm. (2) Elevated troponin: Code(s): R77.8 - Other specified abnormalities of plasma proteins Status: Acute Assessment and Plan: Mild elevation. Peaked at 0.048. Probably related to SOB with covid pneumonia and/or CHF. Symptoms do not suggest ACS and EKG shows no acute changes. (3) Coronary artery disease: Code(s): I25.10 - Atherosclerotic heart disease of [place] coronary artery without angina pectoris Status: Acute Assessment and Plan: Stable. (4) PAF (paroxysmal atrial fibrillation): Code(s): I48.0 - Paroxysmal atrial fibrillation Status: Acute Assessment and Plan: Back in Sinus rhythm. Continue Amiodarone 200 mg daily as that was able to maintain sinus rhythm. On Warfarin for this and history of recurrent DVT. INR is 3.5.Hold Warfarin given gross hematuria in tamayo bag. (5) PSVT (paroxysmal supraventricular tachycardia): Code(s): I47.1 - Supraventricular tachycardia Status: Acute (6) Dyslipidemia: Code(s): E78.5 - Hyperlipidemia, unspecified Status: Acute Assessment and Plan: On Pravastatin. (7) Venous thrombosis of upper extremity: Code(s): I82.609 - Acute embolism and thrombosis of unspecified veins of unspecified upper extremity Status: Acute Assessment and Plan: Plan is to transition to Lovenox from warfarin. INR today 3.5. He does have some gross hematuria. (8) Venous thrombosis of lower extremity: Code(s): I82.90 - Acute embolism and thrombosis of unspecified vein Status: Acute Subjective Date/time seen: 06/03/22 08:15 Denies chest pain. Has sob. Exam Const: General: cooperative, healthy appearing and comfortable Resp: Auscultation: no crackles, no rales, no rhonchi, no wheezes and diminished lung sounds Cardio: Jugular venous distension: no JVD Rate: regular rate Rhythm: regular rhythm Heart sounds: no murmurs Peripheral pulses: dorsalis pedis present GI: GI Palp: No abdominal tenderness and Yes Soft to palpation Neuro: General: oriented to person, oriented to place and oriented to time Extrem: Right lower extremity: no edema Left lower extremity: no edema Objective Data Vital Signs Vital Signs: Vital Signs - 24 hr 06/02/22 08:53 06/02/22 09:04 06/02/22 09:11 Temperature Pulse Rate 84 89 92 Respiratory Rate 22 H 26 H 22 H Blood Pressure Pulse Oximetry 96 Oxygen Delivery High Flow Therapy with Na Oxygen Flow Rate 60 Fraction of Inspired Oxygen 90 06/02/22 10:05 06/02/22 10:00 06/02/22 12:00 Temperature 98.2 F Pulse Rate 102 H 89 91 Respiratory Rate 18 Blood Pressure 110/63 Pulse Oximetry 96 Oxygen Delivery Oxygen Flow Rate Fraction of Inspired Oxygen 06/02/22 12:00 06/02/22 12:00 06/02/22 14:40 Temperature Pulse Rate 97 82 Respiratory Rate 20 Blood Pressure Pulse Oximetry 96 Oxygen Delivery High Flow Therapy with Na Oxygen Flow Rate 60 Fraction of Inspired Oxygen 90 06/02/22 14:53 06/02/22 14:00 06/02/22 16:00 Temperature Pulse Rate 85 91 Respiratory Rate 20 Blood Pressure Pulse Oximetry 96 Oxygen Delivery High Flow Therapy with Na Oxygen Flow Rate 60 Fraction of Inspired Oxygen 90 06/02/22 16:00 06/02/22 16:00 06/02/22 15:48 Temperature 98.4 F Pulse Rate 80 77 88 Respiratory Rate 22 H Blood Pressure 121/68 Pulse Oximetry 94 95 Oxygen Del
[2022-06-03] MEDS: PRAVASTATIN SODIUM 10 MG TABLET BY MOUTH (11:23)
[2022-06-03] MEDS: AMIODARONE HCL 200 MG TABLET BY MOUTH (11:23)
[2022-06-03] MEDS: PANTOPRAZOLE 40 MG TABLET BY MOUTH (11:23)
[2022-06-03] MEDS: TAMSULOSIN HCL 0.4 MG CAPSULE BY MOUTH (11:23)
[2022-06-03] MEDS: MULTIVITAMINS THERAPEUTIC TAB (*BKC) 1 TABLET PO (11:23)
--- NOTE | 2022-06-03 12:38 | PM.PNPUL ---
Progress Note: A&P Assessment and Plan (1) Acute respiratory failure with hypoxia: Code(s): J96.01 - Acute respiratory failure with hypoxia Status: Acute Assessment and Plan: 77-year-old man with history of recurrent DVT chronically on anticoagulation, history of aortic aneurysm repair, history of paroxysmal atrial fibrillation chronically on amiodarone hospitalized at another hospital for COVID 19 infection, reportedly developed hospital-acquired pneumonia and received antibiotics [facility]. The patient returned with shortness of breath. Chest diagnostic studies have shown bilateral infiltrates. On physical exam the patient has fine crackles bilaterally which in conjunction with the chest x-ray may suggest interstitial lung disease related to COVID-19 infection and less likely due to amiodarone pulmonary toxicity. The patient underwent chest CT without contrast earlier today which confirmed bilateral interstitial infiltrates with multiple foci of organizing consolidation suggestive of post COVID organizing pneumonia. Patient has been on 3 antibiotics for possible nosocomial pneumonia. A chest CT findings are consistent with post COVID organizing pneumonia rather than with nosocomial pneumonia. Plan: Zosyn and vancomycin were discontinued. Will continue with levofloxacin for the time being. Patient was started on Solu-Medrol 125 mg IV x1. will continue with IV Solu-Medrol at a lower dose in a.m.. Will continue with high-flow nasal cannula for now. I have asked Dr. Beyer to evaluate patient regarding d/cing amiodarone given the extensive interstitial lung disease process and possible synergistic effect of amiodarone. As far as DVT, the patient will be transitioned to full dose low molecular heparin once INR is around 2. continue to monitor INR twice daily. 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 Remaining on high-flow nasal cannula. Has been afebrile on 3 antibiotics. Warfarin has been discontinued, INR remaining too high to transition to low-molecular heparin. Has undergone chest CT head earlier today. Review of Systems Review of Systems: System review is negative except as noted in HPI and below. Exam Narrative: GENERAL APPEARANCE: Well developed, well nourished, alert and cooperative, and appears to be in mild respiratory distress while in bed and on high-flow nasal cannula SKIN: Inspection of the skin reveals no rashes, ulcerations or petechiae. HEENT: Sclerae anicteric and conjunctivae pink and moist. Extraocular movements were intact and pupils were equal, round. NECK: Supple. There was no thyroid enlargement, and no tenderness, or masses were felt. LUNGS: Auscultation of the lungs revealed crackles at bases posteriorly bilaterally, no wheezing CARDIAC: There was a regular rate and rhythm without any murmurs, gallops, rubs. ABDOMEN: Soft and nontender with normal bowel sounds. There was no organomegaly. LYMPH NODES: No lymphadenopathy was appreciated in the neck. EXTREMITIES: No cyanosis, clubbing or edema. lower leg skin discoloration. NEUROLOGIC: Alert and oriented x 3. Normal affect. Objective Data
--- NOTE | 2022-06-03 12:45 | PM.IMPN ---
Progress Note: A&P Assessment and Plan (1) Acute respiratory failure with hypoxia: Code(s): J96.01 - Acute respiratory failure with hypoxia Status: Acute Assessment and Plan: The patient tested positive for COVID 19 on 05/08/2022 and he was recently hospitalized at an outside facility as detailed in HP. Pulmonary consult pending ? PNA will start on vanc with Zosyn Levaquin Monitor kidney function daily sputum cx and blood cx pending continue respiratory support will hold on steroids - defer to pulmonary (2) Elevated troponin: Code(s): R77.8 - Other specified abnormalities of plasma proteins Status: Acute Assessment and Plan: appreciate cardiology input (3) Abnormal chest x-ray: Code(s): R93.89 - Abnormal findings on diagnostic imaging of other specified body structures Status: Acute Assessment and Plan: pna vs chf More likely related to pneumonia at this point. (4) Urinary retention: Code(s): R33.9 - Retention of urine, unspecified Status: Acute Assessment and Plan: Bladder scan showed over 500 mL of urine in the bladder and a Ibanez catheter has been inserted. Continue tamsulosin. He will need a voiding trial prior to discharge. add finasteride Having some hematuria, likely from trauma from the Ibanez catheter with elevated INR. 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 (6) Diastolic congestive heart failure: Code(s): I50.30 - Unspecified diastolic (congestive) heart failure Status: Acute Assessment and Plan: diuresis per cardiology Appears compensated, possible mild volume overload. I think most his respiratory issues are related to COVID and pneumonia (7) Paroxysmal atrial fibrillation: Code(s): I48.0 - Paroxysmal atrial fibrillation Status: Acute Assessment and Plan: Currently in a sinus rhythm. Continue amiodarone. (8) Thrombocytopenia: Code(s): D69.6 - Thrombocytopenia, unspecified Status: Acute Assessment and Plan: monitor (9) Obstructive sleep apnea on CPAP: Code(s): G47.33 - Obstructive sleep apnea (adult) (pediatric); Z99.89 - Dependence on other enabling machines and devices Status: Acute (10) Venous thrombosis of lower extremity: Code(s): I82.90 - Acute embolism and thrombosis of unspecified vein Status: Acute Assessment and Plan: Failed Coumadin. Will trend INR daily and once he is around 2-2.5, he can be started on Lovenox. Appreciate Pulmonary input Subjective Date/time seen: 06/03/22 12:45 No new complaints. Still on Airvo -and requiring significant amounts of oxygen. He appears comfortable Exam Narrative: General: Moderately ill-appearing male sitting up in bed on BiPAP. Weight: 90 kg. BMI: 26.2. HEENT: PERRL, EOMI. Conjunctivae anicteric. Oral mucosa appears tacky through the BiPAP mask. Neck: Supple. No obvious jugular venous distension. Respiratory: Tolerating BiPAP, able to speak through the mask. He appears to be in no acute respiratory distress at this time. There are fine crackles heard anteriorly and at the flanks. No significant wheezing. Cardiovascular: Regular rate with occasional ectopy. No murmur. Gastrointestinal: Abdomen is nontender with positive bowel sounds. Bladder feels distended. No guarding or rebound tenderness. Skin: Warm and dry. There is hyperpigmentation of the lower legs, perhaps from amiodarone. Extremities: No cyanosis, clubbing, or edema. No palpable knots or cords. Negative Parag sign bilaterally. Radial and pedal pulses intact. Neurological: Alert and oriented Cranial nerves 2-12 are grossly intact. No gross focal deficits to casual conversation. Psychiatric: Pleasant and cooperative with normal mood and affect. Judgment and insight int
[2022-06-03 13:20] LABS: CRP 20.1 mg/dL (<1.0)
[2022-06-03] MEDS: ACETAMINOPHEN 325 MG TABLET 650 MG PO (16:38)
[2022-06-03 17:05] LABS: INR 3.5; Prothrombin Time 33.8 Seconds (11.1-14.7)
[2022-06-03] MEDS: methylPREDNISolone SOD SUCC 125 MG VIAL IV PUSH (17:54)
[2022-06-03] MEDS: FINASTERIDE 5 MG TABLET PO (20:29)
[2022-06-04] VITALS (44 sets, daily range): BP systolic 94–155; BP diastolic 61–87; PULSE 71–115; RESP 20–40; TEMP 36.2–37.4; O2SAT 90–98; BMI 26.2
[2022-06-04] MEDS: ALBUTEROL SULFATE NEB 2.5 MG/3 ML INH INHALATION ×3 (02:51→20:23)
[2022-06-04] MEDS: IPRATROPIUM BR 0.02% INH SOLN 0.5 MG/2.5 ML VIAL INHALATION ×3 (02:51→20:23)
[2022-06-04 05:23] LABS: Hematocrit 40.4 % (42.0-52.0); Hemoglobin 12.9 g/dL (14.0-18.0); Immature Platelet Fraction Pct 7.3 % (0.9-11.2); Mean Corpuscular HGB Conc 31.9 g/dl (32-36); Mean Corpuscular Hemoglobin 29.8 pg (26-34); Mean Corpuscular Volume 93.3 fl (80-100); Mean Platelet Volume 11.3 fl (7.4-10.4); Platelet Count Result 81 k/mm3 (150-375); Red Blood Count 4.33 M/mm3 (4.6-6.20); Red Cell Distribution Width 13.2 % (11.5-14.5); White Blood Count 5.4 K/mm3 (4.5-10.0)
[2022-06-04 05:35] LABS: INR 3.5; Prothrombin Time 34.1 Seconds (11.1-14.7)
[2022-06-04 05:43] LABS: Anion Gap 9 mmol/L (8-16); Blood Urea Nitrogen 20 mg/dL (9-20); Calcium 7.6 mg/dL (8.4-10.2); Carbon Dioxide 27 mmol/L (22-30); Chloride 100 mmol/L (98-107); Estimated CRCL calculation 70 ml/min; Estimated Glomerular Filt Rate > 60; Glucose 212 mg/dL (65-110); Potassium 4.1 mmol/L (3.4-5.0); Sodium 136 mmol/L (137-145)
--- NOTE | 2022-06-04 07:31 | PM.PNCARD ---
Progress Note: A&P Assessment and Plan (1) Dyspnea: Code(s): R06.00 - Dyspnea, unspecified Status: Acute Assessment and Plan: Probably due to recent covid pneumonia and possibly pulm embolism. Elevated NTproBNP and CXR with possible mild pulm edema. Given Lasix 40 mg IV x1 for that. Lasix 20 mg PO daily on hold as he appears to be euvolemic. Covid pneumonia or healthcare acquired pneumonia, management as per hospitalist. Echo shows EF 55-60%, mild LVH, RV hypokinesis, mild LAE, mild MR, mild-mod TR, RVSP 47 mmHg, Aortic root size 4.4 cm. (2) Elevated troponin: Code(s): R77.8 - Other specified abnormalities of plasma proteins Status: Acute Assessment and Plan: Mild elevation. Peaked at 0.048. Probably related to SOB with covid pneumonia and/or CHF. Symptoms do not suggest ACS and EKG shows no acute changes. (3) Coronary artery disease: Code(s): I25.10 - Atherosclerotic heart disease of [place] coronary artery without angina pectoris Status: Acute Assessment and Plan: Stable. (4) PAF (paroxysmal atrial fibrillation): Code(s): I48.0 - Paroxysmal atrial fibrillation Status: Acute Assessment and Plan: Back in Sinus rhythm. On Amiodarone 200 mg daily as that was able to maintain sinus rhythm. On Warfarin for this and history of recurrent DVT. Hold Warfarin given gross hematuria in tamayo bag and anticipate transitioning to Lovenox once INR <2.[address] Tobin about stopping Amiodarone as it can have synergistic effect with covid pneumonia in worsening pulm status. Stop Amiodarone. Start Metoprolol Tartate 12.5 mg BID to suppress ectopies and arrhythmias. (5) PSVT (paroxysmal supraventricular tachycardia): Code(s): I47.1 - Supraventricular tachycardia Status: Acute (6) Dyslipidemia: Code(s): E78.5 - Hyperlipidemia, unspecified Status: Acute Assessment and Plan: On Pravastatin. (7) Venous thrombosis of upper extremity: Code(s): I82.609 - Acute embolism and thrombosis of unspecified veins of unspecified upper extremity Status: Acute Assessment and Plan: Plan is to transition to Lovenox from warfarin. He does have some gross hematuria. (8) Venous thrombosis of lower extremity: Code(s): I82.90 - Acute embolism and thrombosis of unspecified vein Status: Acute Subjective Date/time seen: 06/04/22 07:31 Reports more sob and on non-rebreather mask now. No chest pains. Exam Const: General: cooperative, healthy appearing and comfortable Resp: Auscultation: no crackles, no rales, no rhonchi, no wheezes and diminished lung sounds Cardio: Jugular venous distension: no JVD Rate: regular rate Rhythm: regular rhythm Heart sounds: no murmurs Peripheral pulses: dorsalis pedis present GI: GI Palp: No abdominal tenderness and Yes Soft to palpation Neuro: General: oriented to person, oriented to place and oriented to time Extrem: Right lower extremity: no edema Left lower extremity: no edema Objective Data Vital Signs Vital Signs: Vital Signs - 24 hr 06/03/22 07:59 06/03/22 08:00 06/03/22 08:09 Temperature 98.7 F Pulse Rate 87 78 78 Respiratory Rate 18 20 20 Blood Pressure 119/78 Pulse Oximetry 94 Oxygen Delivery Oxygen Flow Rate Fraction of Inspired Oxygen 06/03/22 11:23 06/03/22 08:00 06/03/22 12:00 Temperature 98.6 F Pulse Rate 89 83 75 Respiratory Rate 18 Blood Pressure 109/59 L Pulse Oximetry 94 Oxygen Delivery Oxygen Flow Rate Fraction of Inspired Oxygen 06/03/22 13:26 06/03/22 10:00 06/03/22 12:00 Temperature Pulse Rate 79 80 Respiratory Rate Blood Pressure Pulse Oximetry 94 Oxygen Delivery High Flow Therapy with Na Oxygen Flow Rate 60 Fraction of Inspired Oxygen 95 06/03/22 08:00 06/03/22 12:00 06/03/22 14:00 Temperature Pulse Rate 80 Respiratory Rate Blood Pressure Pulse Oximetry 95 9
[2022-06-04] MEDS: methylPREDNISolone SOD SUCC 125 MG VIAL 80 MG IV PUSH (08:39)
[2022-06-04 08:42] LABS: Alveolar/Arterial O2 Gradient 597.9 mmHg; Base Excess ABG -1.4 mEq/l (+/-2.0); Fractional Inspired Oxygen 100 %; HCO3 ABG 24.4 mEq/l (22.0-26.0); Oxygen Content ABG 18.7 %vol (16.0-22.0); Oxygen Saturation ABG 93.4 % (95.0-100.0); Oxyhemoglobin 91.7 % THb (90.0-100.0); PCO2 ABG 44.8 mmHg (35.0-45.0); PO2 ABG 70.3 mmHg (80.0-100.0); Total Hemoglobin 14.5 g/dL (12.0-18.0); pH ABG 7.354 (7.350-7.450)
[2022-06-04 08:43] LABS: Device BIPAP; Expiratory Pressure 10 cmH2O; Inspiratory Pressure 16 cmH2O; Modified Allen's Test Pass; Site Drawn LEFT RADIAL
[2022-06-04] MEDS: MIDAZOLAM 100MG/NS 100ML(*CRX) 100 MG/100 ML BAG IV CONT (09:10)
[2022-06-04] MEDS: FENTANYL 2,500MCG/NS250ML(*CRX 2,500 MCG/250 ML BAG IV CONT (09:10)
[2022-06-04 09:14] LABS: SARS-CoV-2 RNA PCR Positive
--- NOTE | 2022-06-04 09:24 | PM.PNPUL ---
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 The patient returned with shortness of breath. Chest diagnostic studies have shown bilateral infiltrates. On physical exam the patient has fine crackles bilaterally which in conjunction with the chest x-ray may suggest interstitial lung disease related to COVID-19 infection and less likely due to amiodarone pulmonary toxicity. The patient underwent chest CT without contrast yesterday which confirmed bilateral interstitial infiltrates with multiple foci of organizing consolidation suggestive of post COVID organizing pneumonia. the patient will was started on empiric treatment with IV Solu-Medrol 125 mg x1 yesterday, and Solu-Medrol 80 mg IV daily starting this a.m.. The patient had increasing shortness of breath and his O2 saturation remained in the range of 70-75% this am, despite switching patient to BiPAP support 16/10 and 100% FiO2. Due to persistent hypoxemia he was transferred to the intensive care unit where he was intubated by Dr. Avila . Chest x-ray showed no pneumothorax or new infiltrates. Case was discussed with the return to service inspector. Plan: We will continue with Solu-Medrol 80 mg IV daily for post COVID interstitial lung disease /organizing pneumonia. Will monitor INR and transition patient to full-dose subQ Lovenox once INR is around 2. Of note the patient was found to have multiple DVTs in both upper lower extremities while he was chronically on warfarin. Amiodarone has been discontinued after he was evaluated by Dr. Beyer. Will get sputum cultures. (2) Paroxysmal atrial fibrillation: Code(s): I48.0 - Paroxysmal atrial fibrillation Status: Acute (3) Diastolic congestive heart failure: Code(s): I50.30 - Unspecified diastolic (congestive) heart failure Status: Acute (4) PAF (paroxysmal atrial fibrillation): Code(s): I48.0 - Paroxysmal atrial fibrillation Status: Acute (5) Recurrent deep vein thrombosis (DVT): Code(s): I82.409 - Acute embolism and thrombosis of unspecified deep veins of unspecified lower extremity Status: Acute (6) Dyspnea: Code(s): R06.00 - Dyspnea, unspecified Status: Acute (7) Chronic anticoagulation: Code(s): Z79.01 - FDC (current) use of anticoagulants Status: Acute Subjective Date/time seen: 06/04/22 09:24 Patient complaining of more shortness of breath. Has been on a high-flow nasal cannula at 60 liters/minute and non-rebreather mask. Has no fever chills hemoptysis chest pain. O2 sat running low. Stat chest x-ray done this a.m. to exclude a new process. Review of Systems Review of Systems: All system review is negative except as noted in HPI below Exam Narrative: GENERAL APPEARANCE: Well developed, well nourished, alert and cooperative, and appears to be in moderate to severe respiratory distress while in bed and on high-flow nasal cannula/non-rebreather mask SKIN: Inspection of the skin reveals no rashes, ulcerations or petechiae. HEENT: Sclerae anicteric and conjunctivae pink and moist. Extraocular movements were intact and pupils were equal, round. NECK: Supple. There was no thyroid enlargement, and no tenderness, or masses were felt. LUNGS: Auscultation of the lungs revealed crackles at bases posteriorly bilaterally, no wheezing CARDIAC: There was a regular rate and rhythm without any murmurs, gallops, rubs. ABDOMEN: Soft and nontender with normal bowel sounds. There
--- NOTE | 2022-06-04 09:51 | WPDPROCEDUR ---
Procedures Intubation Intubation Date: 06/04/22 Intubation Time: 08:40 Consent: Discussed with patient in details regarding his respiratory status, I recommended intubation to which he is agreeable. He is aware that he will be sedated and placed on mechanical ventilation. He did consent to the procedure. Sedative: etomidate Paralytic: rocuronium Laryngoscope: fiber optic video scope Assist device used: fiber optic device ET tube size: 8 Tube secured depth (cm): 24 Tube secured location: lips Tube placement confirmation: visualized tube passing through cords, equal breath sounds bilaterally, no breath sounds over epigastrium and confirmation by capnometry Patient tolerated procedure: well Intubation complications: none
--- NOTE | 2022-06-04 09:54 | WPDCNINT ---
Assessment and Plan Assessment and plan (1) Acute respiratory failure with hypoxia: Code(s): J96.01 - Acute respiratory failure with hypoxia Status: Acute Assessment and Plan: Patient had recent COVID infection and was tested positive on 05/08/2022. Was treated with dexamethasone and baricitinib an outside hospital, ([facility] Patient was discharged home on 6 L of oxygen. He has been having worsening shortness of breath since discharge from the hospital on 11/23/2021. -on 06/01 patient presented to the ED with hypoxic respiratory failure, - CT scan of the chest from 06/03/2022 showed diffuse bilateral lung disease with dependent predominance, n the acute setting differential would include pneumonia including reported history of COVID pneumonia or moderate pulmonary edema. Differential would include less likely drug-induced pneumonitis and chronic eosinophilic pneumonia. Cardiomegaly. Mild likely reactive mediastinal lymphadenopathy -pulmonology following and feel it is more interstitial lung disease/organizing pneumonia post COVID. -continue Solu-Medrol -patient was intubated on 06/04/2022 worsening shortness of breath, impending respiratory failure, significant tachypnea, hypoxia, using accessory muscles. -intubation was uneventful, patient was initially on CMV mode of ventilation with elevated peak airway pressures, switched him to pressure control ventilation with low tidal volume strategy. Peep of 8, will accept O2 sats greater than 90% -patient is sedated with fentanyl and Versed infusion, also started Nimbex for neuromuscular blockade and ventilator synchrony -post intubation Chest x-ray and ABGs reviewed -continue Levaquin per pulmonology (2) Venous thrombosis of lower extremity: Code(s): I82.90 - Acute embolism and thrombosis of unspecified vein Status: Acute Assessment and Plan: Patient has been on chronic warfarin, INR 3.5 on 06/04/2022 -per business support manager will transition to Lovenox from possible failed warfarin therapy once INR is 2-2.5 -06/02/2022 Venous Dopplers showed Both above and [id number] deep venous thrombosis at both the right and left lower limbs AND Thrombosis of the bilateral cephalic veins, throughout the left upper arm and forearm on the left and more distally in the right forearm on the right. (3) Venous thrombosis of upper extremity: Code(s): I82.609 - Acute embolism and thrombosis of unspecified veins of unspecified upper extremity Status: Acute Assessment and Plan: As above (4) Thrombocytopenia: Code(s): D69.6 - Thrombocytopenia, unspecified Status: Acute Assessment and Plan: Thrombocytopenia likely related to sepsis, chronic warfarin therapy -hemoglobin has been stable -will continue to monitor for bleeding (5) Paroxysmal atrial fibrillation: Code(s): I48.0 - Paroxysmal atrial fibrillation Status: Acute Assessment and Plan: Patient with history of paroxysmal AFib being followed by Cardiology -patient was in a amiodarone which was maintaining sinus rhythm and the patient, -patient on warfarin with melina hematuria, hold warfarin and transition to therapeutic Lovenox once INR is 2-2.5. -amiodarone can also cause pulmonary toxicity/interstitial pneumonitis, -amiodarone was stopped for that reason (6) Diastolic congestive heart failure: Code(s): I50.30 - Unspecified diastolic (congestive) heart failure Status: Acute Assessment and Plan: Patient currently seems to be you volume, was diuresed by Cardiology but currently diuresis on hold -will continue to monitor -06/02/2022 echocardiogram showed EF of 55-60%, normal LV diastolic function, Right ventricular systolic function is reduced, moderate aortic valve sclerosis, mild aortic valve regurg, mild mitral valve regurg, [id number] tricuspid valve regurg mild pulmonary hypertension with RVSP of 47 mmHg -cardiology following the patient Addit
[2022-06-04 10:01] LABS: Alveolar/Arterial O2 Gradient 527.7 mmHg; Base Excess ABG -6.2 mEq/l (+/-2.0); Carboxyhemoglobin 0.2 % THb (0-2.0); Fractional Inspired Oxygen 100 %; HCO3 ABG 22.4 mEq/l (22.0-26.0); Methemoglobin ABG 0.6 %THb (0-1.5); Oxygen Content ABG 20.7 %vol (16.0-22.0); Oxygen Saturation ABG 97.9 % (95.0-100.0); Oxyhemoglobin 96.5 % THb (90.0-100.0); PO2 ABG 128.3 mmHg (80.0-100.0); PO2 FiO2 Ratio Arterial Blood 1.28 %; Reduced Hemoglobin 2.7 %THb (0-5.0); Total Hemoglobin 15.1 g/dL (12.0-18.0)
[2022-06-04 10:05] LABS: Device VENTILATOR; Modified Allen's Test Pass; Site Drawn RIGHT RADIAL; pH ABG 7.213 (7.350-7.450)
[2022-06-04 10:06] LABS: Arterial Blood Gas PEEP 8 cmH2O; Arterial Blood Gas Vent Mode PRESSURE CONTROL; Arterial Blood Gas Ventilator rate 26 /MIN; Peak Inspiratory Pressure 30 cmH2O
[2022-06-04 10:53] LABS: Glucose Point of Care 266 mg/dl (65-105)
[2022-06-04] MEDS: INSULIN ASPART (*BKC) 100 UNITS/ML SUB-Q ×2 (11:17→18:00)
[2022-06-04] MEDS: ROCURONIUM BROMIDE 50 MG/5 ML VIAL IV PUSH (11:26)
--- NOTE | 2022-06-04 11:30 | PCFNICU ---
ICU Rounding Note: Pt current nutrition is Vital AF 1.2 at 20 ml/hr over 22 hours. Last recorded weight is 90.4 kg, down from 91.8 kg on admit. Bowel Motility:No Bm reported. Labs Reviewed: Glu 212, Na 136, Hct 40.4, Hgb 12.9 Meds Noted:Fentanyl, Versed, Solu Medrol, Atrovent Skin: WNL Additional Notes: Patient transferred to ICU, intubated today. Tube feedings orders for Vital AF 1.2 at 20 ml/hr. Recommend goal rate at 75 ml/hr providing 1980 kcals/124 gm protein. Free water flush 30 ml q 4 hours. Agree with diet orders. Following daily in ICU rounds and reassessing every Thursday and Thursday.
--- NOTE | 2022-06-04 12:36 | PM.IMPN ---
Progress Note: A&P Assessment and Plan (1) Acute respiratory failure with hypoxia: Code(s): J96.01 - Acute respiratory failure with hypoxia Status: Acute Assessment and Plan: Patient had recent COVID infection and was tested positive on 05/08/2022. Was treated with dexamethasone and baricitinib an outside hospital, ([facility]). Patient was discharged home on 6 L of oxygen. He has been having worsening shortness of breath since discharge from the hospital Urgently intubated today, placed on Levaquin per pulmonology, appreciate critical care management of the ventilator and pulmonology management of possible pneumonia Also receiving steroids per pulmonology for COVID (2) Venous thrombosis of lower extremity: Code(s): I82.90 - Acute embolism and thrombosis of unspecified vein Status: Acute Assessment and Plan: Patient has been on chronic warfarin, INR 3.5 this morning, given has history of aortic aneurysm repair cardiology (3) Venous thrombosis of upper extremity: Code(s): I82.609 - Acute embolism and thrombosis of unspecified veins of unspecified upper extremity Status: Acute Assessment and Plan: As above (4) Thrombocytopenia: Code(s): D69.6 - Thrombocytopenia, unspecified Status: Acute Assessment and Plan: Thrombocytopenia likely related to sepsis, chronic warfarin therapy (5) Paroxysmal atrial fibrillation: Code(s): I48.0 - Paroxysmal atrial fibrillation Status: Acute Assessment and Plan: Patient with history of paroxysmal AFib being followed by Cardiology, warfarin being transition to Lovenox due to clot burden while on therapeutic warfarin, amiodarone discontinued due to possible pulmonary toxicity (6) Diastolic congestive heart failure: Code(s): I50.30 - Unspecified diastolic (congestive) heart failure Status: Acute Assessment and Plan: Patient currently seems to be you volume, was diuresed by Cardiology but currently diuresis on hold Appreciate cardiology consultation Plan Full code Subjective Date/time seen: 06/04/22 12:36 Interval history: Intubated, sedated. Review of Systems Review of Systems: ROS unobtainable: Yes unobtainable due to endotracheal tube Exam Narrative: Per hoist worker and compliance aide today due to acute critical care events Objective Data Vital Signs Vital Signs: Vital Signs - 24 hr 06/03/22 13:26 06/03/22 14:00 06/03/22 15:40 Temperature Pulse Rate 80 72 Respiratory Rate 20 Blood Pressure Pulse Oximetry 94 Oxygen Delivery High Flow Therapy with Na Oxygen Flow Rate 60 Fraction of Inspired Oxygen 95 06/03/22 15:50 06/03/22 16:00 06/03/22 16:00 Temperature 99.9 F H Pulse Rate 77 96 84 Respiratory Rate 20 24 H Blood Pressure 105/62 Pulse Oximetry 94 Oxygen Delivery Oxygen Flow Rate Fraction of Inspired Oxygen 06/03/22 16:00 06/03/22 18:00 06/03/22 20:00 Temperature 97.9 F Pulse Rate 99 81 Respiratory Rate 24 H 38 H Blood Pressure 104/58 L Pulse Oximetry 93 92 Oxygen Delivery High Flow Therapy with Na Oxygen Flow Rate 55 Fraction of Inspired Oxygen 95 06/03/22 20:40 06/03/22 20:50 06/03/22 21:42 Temperature Pulse Rate 78 80 Respiratory Rate 20 20 Blood Pressure Pulse Oximetry 93 Oxygen Delivery High Flow Therapy with Na Oxygen Flow Rate 60 Fraction of Inspired Oxygen 95 06/03/22 20:00 06/03/22 20:00 06/03/22 22:00 Temperature Pulse Rate 80 95 86 Respiratory Rate 20 Blood Pressure Pulse Oximetry 93 Oxygen Delivery High Flow Therapy with Na Oxygen Flow Rate 60 Fraction of Inspired Oxygen 95 06/03/22 23:16 06/04/22 00:00 06/04/22 00:00 Temperature 98.0 F Pulse Rate 86 86 86 Respiratory Rate 32 H 32 H Blood Pressure 114/81 Pulse Oximetry 94 93 Oxygen Delivery High Flow Therapy with Na Oxygen Flow Rate 60
[2022-06-04] MEDS: CISATRACURIUM BESYLATE 200 MG in DEXTROSE 5% 80 ML 8.14 ML IV CONT (12:44)
[2022-06-04 18:03] LABS: Pneumococcal Antigen Urine Not Detected (Not Detected)
[2022-06-04 18:05] LABS: Glucose Point of Care 231 mg/dl (65-105)
[2022-06-04] MEDS: MINERAL OIL/WHITE PETROLATUM OINTMENT 1 APPLIC EACH EYE (21:10)
[2022-06-04 21:29] LABS: Legionella pneumophila Ag Ur Not Detected (Not Detected)
[2022-06-04 22:18] LABS: Base Excess ABG 0.4 mEq/l (+/-2.0); Fractional Inspired Oxygen 90 %; HCO3 ABG 28.1 mEq/l (22.0-26.0); Oxygen Content ABG 19.6 %vol (16.0-22.0); Oxygen Saturation ABG 98.6 % (95.0-100.0); Oxyhemoglobin 97.6 % THb (90.0-100.0); PCO2 ABG 58.3 mmHg (35.0-45.0); PO2 FiO2 Ratio Arterial Blood 1.64 %; Total Hemoglobin 14.1 g/dL (12.0-18.0); pH ABG 7.301 (7.350-7.450)
[2022-06-04 22:19] LABS: Arterial Blood Gas PEEP 8 cmH2O; Arterial Blood Gas Vent Mode PRESSURE CONTROL; Arterial Blood Gas Ventilator rate 26 /MIN; Device VENTILATOR; Modified Allen's Test Pass; Site Drawn LEFT RADIAL
[2022-06-04 22:22] LABS: Peak Inspiratory Pressure 30 cmH2O
[2022-06-05] VITALS (49 sets, daily range): BP systolic 88–124; BP diastolic 59–84; PULSE 65–107; RESP 20–30; TEMP 36.3–37.2; O2SAT 90–97
[2022-06-05 00:23] LABS: Glucose Point of Care 199 mg/dl (65-105)
[2022-06-05] MEDS: CISATRACURIUM BESYLATE 200 MG in DEXTROSE 5% 80 ML 5.97 ML IV CONT (01:49)
[2022-06-05] MEDS: IPRATROPIUM BR 0.02% INH SOLN 0.5 MG/2.5 ML VIAL INHALATION ×4 (02:41→20:43)
[2022-06-05] MEDS: ALBUTEROL SULFATE NEB 2.5 MG/3 ML INH INHALATION ×4 (02:41→20:43)
[2022-06-05 04:56] LABS: Hematocrit 40.3 % (42.0-52.0); Hemoglobin 12.7 g/dL (14.0-18.0); Immature Granulocyte Absolute 0.04 K/mm3 (0.00-0.031); Immature Granulocyte Percent A 0.7 % (0-0.5); Immature Platelet Fraction Pct 8.9 % (0.9-11.2); Lymphocytes Absolute Auto 0.54 K/mm3 (0.9-3.2); Lymphocytes Percent Auto 10.1 % (18.3-44.2); Mean Corpuscular HGB Conc 31.5 g/dl (32-36); Mean Platelet Volume 11.2 fl (7.4-10.4); Monocytes Absolute Auto 0.4 K/mm3 (0.1-0.6); Monocytes Percent Auto 8.2 % (2.6-8.5); Neutrophils Absolute Auto 4.3 K/mm3 (1.3-6.7); Platelet Count Result 124 k/mm3 (150-375); Red Blood Count 4.24 M/mm3 (4.6-6.20); Red Cell Distribution Width 13.4 % (11.5-14.5); White Blood Count 5.4 K/mm3 (4.5-10.0)
[2022-06-05 05:04] LABS: INR 4.3
[2022-06-05 05:05] LABS: Partial Thromboplastin Time 45.8 SECONDS (22.3-36.8)
[2022-06-05 05:07] LABS: Lactic Acid Reflex 1.6 mmol/L (0.7-2.0)
[2022-06-05] MEDS: MIDAZOLAM 100MG/NS 100ML(*CRX) 100 MG/100 ML BAG IV CONT ×2 (05:29→23:05)
[2022-06-05 05:33] LABS: Alanine Aminotransferase 28 U/L (6-50); Albumin Level 2.7 g/dL (3.5-5.1); Alkaline Phosphatase 92 U/L (38-126); Anion Gap 8 mmol/L (8-16); Aspartate Amino Transferase 21 U/L (17-59); Bilirubin,Total 0.7 mg/dL (0.2-1.3); Blood Urea Nitrogen 47 mg/dL (9-20); Calcium 7.4 mg/dL (8.4-10.2); Carbon Dioxide 29 mmol/L (22-30); Chloride 99 mmol/L (98-107); Estimated CRCL calculation 46 ml/min; Estimated Glomerular Filt Rate 49; Glucose 219 mg/dL (65-110); Magnesium 2.5 mg/dL (1.6-2.3); Phosphorus 4.6 mg/dL (2.5-4.5); Sodium 136 mmol/L (137-145)
[2022-06-05 05:35] LABS: Alveolar/Arterial O2 Gradient 261.1 mmHg; Base Excess ABG -2.1 mEq/l (+/-2.0); Carboxyhemoglobin 0.3 % THb (0-2.0); Fractional Inspired Oxygen 55 %; HCO3 ABG 24.8 mEq/l (22.0-26.0); Methemoglobin ABG 0.3 %THb (0-1.5); Oxygen Content ABG 19.8 %vol (16.0-22.0); Oxygen Saturation ABG 93.6 % (95.0-100.0); Oxyhemoglobin 93.1 % THb (90.0-100.0); PCO2 ABG 50.6 mmHg (35.0-45.0); PO2 ABG 74.8 mmHg (80.0-100.0); PO2 FiO2 Ratio Arterial Blood 1.36 %; Reduced Hemoglobin 6.3 %THb (0-5.0); Total Hemoglobin 15.1 g/dL (12.0-18.0); pH ABG 7.309 (7.350-7.450)
[2022-06-05 05:37] LABS: Arterial Blood Gas PEEP 8 cmH2O; Arterial Blood Gas Vent Mode PRESSURE CONTROL; Arterial Blood Gas Ventilator rate 26 /MIN; Device VENTILATOR; Modified Allen's Test Pass; Peak Inspiratory Pressure 30 cmH2O; Site Drawn LEFT RADIAL
[2022-06-05] MEDS: INSULIN ASPART (*BKC) 100 UNITS/ML SUB-Q ×4 (05:37→23:05)
[2022-06-05] MEDS: FENTANYL 2,500MCG/NS250ML(*CRX 2,500 MCG/250 ML BAG 10 MCG IV CONT (08:12)
--- NOTE | 2022-06-05 08:16 | PM.PNCARD ---
Progress Note: A&P Assessment and Plan (1) Dyspnea: Code(s): R06.00 - Dyspnea, unspecified Status: Acute Assessment and Plan: Probably due to recent covid pneumonia and possibly pulm embolism. Elevated NTproBNP and CXR with possible mild pulm edema. Given Lasix 40 mg IV x1 for that. Lasix 20 mg PO daily on hold as he appears to be euvolemic. Covid pneumonia or healthcare acquired pneumonia, management as per hospitalist. Echo shows EF 55-60%, mild LVH, RV hypokinesis, mild LAE, mild MR, mild-mod TR, RVSP 47 mmHg, Aortic root size 4.4 cm. (2) Elevated troponin: Code(s): R77.8 - Other specified abnormalities of plasma proteins Status: Acute Assessment and Plan: Mild elevation. Peaked at 0.048. Probably related to SOB with covid pneumonia and/or CHF. Symptoms do not suggest ACS and EKG shows no acute changes. (3) Coronary artery disease: Code(s): I25.10 - Atherosclerotic heart disease of [place] coronary artery without angina pectoris Status: Acute Assessment and Plan: Stable. (4) PAF (paroxysmal atrial fibrillation): Code(s): I48.0 - Paroxysmal atrial fibrillation Status: Acute Assessment and Plan: In Sinus rhythm. Was on Amiodarone 200 mg daily as that was able to maintain sinus rhythm. On Warfarin for this and history of recurrent DVT. Hold Warfarin given gross hematuria in tamayo bag and anticipate transitioning to Lovenox once INR <2.[address] Tobin about stopping Amiodarone as it can have synergistic effect with covid pneumonia in worsening pulm status. Stopped Amiodarone. Start Metoprolol Tartate 12.5 mg BID to suppress ectopies and arrhythmias if BP can tolerate. (5) PSVT (paroxysmal supraventricular tachycardia): Code(s): I47.1 - Supraventricular tachycardia Status: Acute (6) Dyslipidemia: Code(s): E78.5 - Hyperlipidemia, unspecified Status: Acute Assessment and Plan: On Pravastatin. (7) Venous thrombosis of upper extremity: Code(s): I82.609 - Acute embolism and thrombosis of unspecified veins of unspecified upper extremity Status: Acute Assessment and Plan: Plan is to transition to Lovenox from warfarin. He does have some gross hematuria. (8) Venous thrombosis of lower extremity: Code(s): I82.90 - Acute embolism and thrombosis of unspecified vein Status: Acute Subjective Date/time seen: 06/05/22 08:16 He got intubated yesterday and transferred to ICU. Currently on ventilator. Exam Const: General: cooperative, healthy appearing and comfortable Resp: Auscultation: no crackles, no rales, no rhonchi, no wheezes and diminished lung sounds Cardio: Jugular venous distension: no JVD Rate: regular rate Rhythm: regular rhythm Heart sounds: no murmurs Peripheral pulses: dorsalis pedis present GI: GI Palp: No abdominal tenderness and Yes Soft to palpation Neuro: General: oriented to person, oriented to place and oriented to time Extrem: Right lower extremity: no edema Left lower extremity: no edema Objective Data Vital Signs Vital Signs: Vital Signs - 24 hr 06/04/22 08:29 06/04/22 09:26 06/04/22 10:00 Temperature 98.3 F Pulse Rate 91 115 H 100 Respiratory Rate 35 H 29 H Blood Pressure 155/87 H Pulse Oximetry 93 96 96 Oxygen Delivery BiPAP Mechanical Ventilation Fraction of Inspired Oxygen 100 06/04/22 10:40 06/04/22 09:10 06/04/22 09:10 Temperature Pulse Rate 84 102 H 104 H Respiratory Rate 40 H 40 H Blood Pressure Pulse Oximetry 91 Oxygen Delivery Mechanical Ventilation Fraction of Inspired Oxygen 100 06/04/22 09:15 06/04/22 09:22 06/04/22 09:35 Temperature Pulse Rate 106 H 98 99 Respiratory Rate 40 H 33 H 36 H Blood Pressure Pulse Oximetry Oxygen Delivery Fraction of Inspired Oxygen 06/04/22 09:50 06/04/22 10:19 06/04/22 11:10 Temperature Pulse Rate 90 93 110 H Respiratory Rate 40 H 37 H 29 H
[2022-06-05] MEDS: METOPROLOL TARTRATE 12.5 MG TABLET PO ×2 (08:50→20:02)
[2022-06-05] MEDS: PRAVASTATIN SODIUM 10 MG TABLET BY MOUTH (08:50)
[2022-06-05] MEDS: MINERAL OIL/WHITE PETROLATUM OINTMENT 1 APPLIC EACH EYE ×2 (08:51→20:03)
[2022-06-05] MEDS: PANTOPRAZOLE SODIUM IV 40 MG VIAL IV PUSH (08:51)
[2022-06-05] MEDS: SODIUM CHLORIDE 0.9% IV 1,000 ML 100 ML IV CONT (08:51)
[2022-06-05 08:55] LABS: Creatine Kinase < 20 U/L (55-170)
[2022-06-05] MEDS: methylPREDNISolone SOD SUCC 125 MG VIAL 80 MG IV PUSH (08:55)
--- NOTE | 2022-06-05 09:23 | WPDINTPN ---
Progress Note: A&P Assessment and Plan (1) Acute respiratory failure with hypoxia: Code(s): J96.01 - Acute respiratory failure with hypoxia Status: Acute Assessment and Plan: Patient had recent COVID infection and was tested positive on 05/08/2022. Was treated with dexamethasone and baricitinib an outside hospital, ([facility]). Patient was discharged home on 6 L of oxygen. He has been having worsening shortness of breath since discharge from the hospital on 11/23/2021. -on 06/01 patient presented to the ED with hypoxic respiratory failure, - CT scan of the chest from 06/03/2022 showed diffuse bilateral lung disease with dependent predominance, n the acute setting differential would include pneumonia including reported history of COVID pneumonia or moderate pulmonary edema. Differential would include less likely drug-induced pneumonitis and chronic eosinophilic pneumonia. Cardiomegaly. Mild likely reactive mediastinal lymphadenopathy -pulmonology following and feel it is more interstitial lung disease/organizing pneumonia post COVID. -continue Solu-Medrol per pulmonology -patient was intubated on 06/04/2022 worsening shortness of breath, impending respiratory failure, significant tachypnea, hypoxia, using accessory muscles. -currently on pressure control mode of ventilation as patient had elevated peak pressures on the day of intubation. ARDS physiology, patient was placed on low tidal volume strategy and a PEEP of 8. -will switch to CMV mode of ventilation, continue low tidal volume strategy and PEEP of 8. Currently on 50% FiO2 with good O2 sats. Will wean FiO2 to maintain O2 sats greater than 92% -patient is sedated with fentanyl and Versed infusion, also started Nimbex for neuromuscular blockade and ventilator synchrony. Will start to wean Nimbex - 06/05 chest x-ray: Diffuse lung disease with interval improvement, consistent with pulmonary edema versus pneumonia superimposed on chronic lung disease. Cardiomegaly. -continue Levaquin per pulmonology (2) Venous thrombosis of lower extremity: Code(s): I82.90 - Acute embolism and thrombosis of unspecified vein Status: Acute Assessment and Plan: Patient has been on chronic warfarin, INR 4.3 this morning -per artificial glass eye maker will transition to Lovenox from possible failed warfarin therapy once INR is 2-2.5 -06/02/2022 Venous Dopplers showed Both above and [id number] deep venous thrombosis at both the right and left lower limbs AND Thrombosis of the bilateral cephalic veins, throughout the left upper arm and forearm on the left and more distally in the right forearm on the right. (3) Venous thrombosis of upper extremity: Code(s): I82.609 - Acute embolism and thrombosis of unspecified veins of unspecified upper extremity Status: Acute Assessment and Plan: As above (4) Thrombocytopenia: Code(s): D69.6 - Thrombocytopenia, unspecified Status: Acute Assessment and Plan: Thrombocytopenia likely related to sepsis, chronic warfarin therapy -hemoglobin has been stable -platelet counts have improved to 124 on 06/05/2022 -will continue to monitor for bleeding (5) Paroxysmal atrial fibrillation: Code(s): I48.0 - Paroxysmal atrial fibrillation Status: Acute Assessment and Plan: Patient with history of paroxysmal AFib being followed by Cardiology -patient was in a amiodarone which was maintaining sinus rhythm and the patient, -patient on warfarin with melina hematuria, hold warfarin and transition to therapeutic Lovenox once INR is 2-2.5. -amiodarone can also cause pulmonary toxicity/interstitial pneumonitis, -amiodarone was stopped for that reason -will start low-dose p.o. metoprolol (6) Diastolic congestive heart failure: Code(s): I50.30 - Unspecified diastolic (congestive) heart failure Status: Acute Assessment and Plan: Patient currently seems to be hypovolemic, was diuresed by Card
[2022-06-05 10:02] LABS: Creatinine Urine 123.3 mg/dL
[2022-06-05 10:04] LABS: Potassium Urine Random 62.7 meq/L; Sodium Urine Random 22 meq/L
--- NOTE | 2022-06-05 10:29 | PM.PNPUL ---
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 The patient returned with shortness of breath. Chest diagnostic studies have shown bilateral infiltrates. chest CT showed bilateral infiltrates consistent with organizing pneumonia following COVID 19 pneumonia. The patient was intubated and transferred to the intensive care unit following worsening of gas exchange. Over the last 24 hours his respiratory status has been unchanged or little improved. A chest x-ray done today showed no new infiltrates. There is some clearing of infiltrates which could be related to increased PEEP. Plan patient will remain on IV Solu-Medrol 80 mg daily. Await for sputum culture. INR still elevated following discontinuation of warfarin. the patient developed new upper and lower extremity thrombi while on warfarin. Plan is to transition patient to full-dose subQ Lovenox once INR is around 2. (2) Recurrent deep vein thrombosis (DVT): Code(s): I82.409 - Acute embolism and thrombosis of unspecified deep veins of unspecified lower extremity Status: Acute (3) Interstitial lung disease: Code(s): J84.9 - Interstitial pulmonary disease, unspecified Status: Acute (4) Paroxysmal atrial fibrillation: Code(s): I48.0 - Paroxysmal atrial fibrillation Status: Acute (5) Diastolic congestive heart failure: Code(s): I50.30 - Unspecified diastolic (congestive) heart failure Status: Acute (6) PAF (paroxysmal atrial fibrillation): Code(s): I48.0 - Paroxysmal atrial fibrillation Status: Acute (7) Dyspnea: Code(s): R06.00 - Dyspnea, unspecified Status: Acute (8) Chronic anticoagulation: Code(s): Z79.01 - half-way (current) use of anticoagulants Status: Acute Subjective Date/time seen: 06/05/22 10:29 A patient remaining intubated, fully sedated, on mechanical ventilation in the intensive care unit. He is afebrile. Hemodynamically stable. FiO2 decreased down to 50%. Receiving IV Solu-Medrol for post COVID organizing pneumonia. INR still elevated following D/cing warfarin. Exam Narrative: GENERAL APPEARANCE: Well developed, well nourished, fully sedated on MV SKIN: Inspection of the skin reveals no rashes, ulcerations or petechiae. HEENT: Sclerae anicteric and conjunctivae pink and moist. NECK: Supple. There was no thyroid enlargement.. LUNGS: Auscultation of the lungs clear breath sounds anteriorly, no wheezing CARDIAC: There was a regular rate and rhythm without any murmurs, gallops, rubs. ABDOMEN: Soft with normal bowel sounds. There was no organomegaly. LYMPH NODES: No lymphadenopathy was appreciated in the neck EXTREMITIES: No cyanosis, clubbing. chronic lower leg discoloration. NEUROLOGIC: fully sedated on mechanical ventilation Objective Data Vital Signs Vital Signs: Vital Signs - 24 hr 06/04/22 10:40 06/04/22 11:10 06/04/22 11:37 Temperature Pulse Rate 84 110 H 105 H Respiratory Rate 29 H 26 H Blood Pressure Pulse Oximetry 91 Oxygen Delivery Mechanical Ventilation Fraction of Inspired Oxygen 100 06/04/22 12:00 06/04/22 12:44 06/04/22 12:00 Temperature 36.6 C Pulse Rate 93 84 104 H Respiratory Rate 26 H 26 H Blood Pressure 126/73 125/84 Pulse Oximetry 94 Oxygen Delivery Fraction of Inspired Oxygen 06/04/22 12:00 06/04/22 12:00 06/04/22 13:44 Temperature 36.7 C Pulse Rate 104 H 80 Respiratory Rat
[2022-06-05 10:30] LABS: Eosinophil Urine None Seen % (None Seen)
[2022-06-05 11:23] LABS: Glucose Point of Care 219 mg/dl (65-105)
--- NOTE | 2022-06-05 11:26 | PCFNICU ---
ICU Rounding Note: Pt current nutrition is Vital AF 12 at 20 ml/hr over 22 hours. Last recorded weight is 91 kg, stable Bowel Motility:Hypoactive bowel sounds Labs Reviewed:Glu 219, BUN 47, Cr 1.4, Na 136, Hct 40.3,Hgb 12.7 Meds Noted:Fentanyl, Versed, Solu Medrol, Atrovent, Lopressor. Skin: WNL Additional Notes: Patient remains on mechanical vent and tube feedings of Vital AF 1.2 at 20 ml/hr and tolerating per nursing. Plans to advance tube feedings as tolerated. Recommend goal rate at 75 ml/hr providing 1980 kcals/124 gms protein/1338 ml water. Free water flush 30 ml q 4 hours. Renal ultrasound-neg. Chest x ray-improving. Agree with diet orders. Following daily in ICU rounds. Reassessing every Thursday and Thursday.
[2022-06-05 17:21] LABS: Glucose Point of Care 222 mg/dl (65-105)
--- NOTE | 2022-06-05 18:00 | PM.IMPN ---
Subjective Date/time seen: 06/05/22 18:00 Interval history: int, sed, no o/n events noted. Objective Data Vital Signs Vital Signs: Vital Signs - 24 hr 06/04/22 18:20 06/04/22 20:28 06/04/22 20:30 Temperature Pulse Rate 80 84 84 Respiratory Rate 26 H 26 H Blood Pressure 122/63 Pulse Oximetry 97 Oxygen Delivery Mechanical Ventilation Fraction of Inspired Oxygen 90 06/04/22 20:00 06/04/22 20:00 06/04/22 22:00 Temperature 97.8 F 97.8 F Pulse Rate 95 97 Respiratory Rate 26 H 26 H Blood Pressure 106/78 111/66 Pulse Oximetry 97 98 Oxygen Delivery Fraction of Inspired Oxygen 90 06/04/22 20:45 06/04/22 23:01 06/05/22 00:00 Temperature 97.9 F Pulse Rate 88 95 97 Respiratory Rate 26 H 26 H Blood Pressure 110/68 Pulse Oximetry 98 97 Oxygen Delivery Mechanical Ventilation Fraction of Inspired Oxygen 70 06/05/22 00:00 06/05/22 01:49 06/04/22 20:00 Temperature Pulse Rate 107 H 93 Respiratory Rate 26 H 26 H Blood Pressure 103/79 123/83 Pulse Oximetry Oxygen Delivery Fraction of Inspired Oxygen 90 06/04/22 22:00 06/05/22 00:00 06/05/22 02:00 Temperature 97.9 F Pulse Rate 92 89 96 Respiratory Rate 26 H 26 H Blood Pressure 107/67 109/82 102/72 Pulse Oximetry 96 Oxygen Delivery Fraction of Inspired Oxygen 06/05/22 02:43 06/05/22 02:44 06/04/22 23:40 Temperature Pulse Rate 85 85 Respiratory Rate 26 H Blood Pressure Pulse Oximetry 97 98 Oxygen Delivery Mechanical Ventilation Fraction of Inspired Oxygen 70 70 06/05/22 04:33 06/05/22 04:00 06/05/22 04:00 Temperature 97.8 F Pulse Rate 88 94 Respiratory Rate 26 H 26 H Blood Pressure 112/69 112/83 Pulse Oximetry 94 Oxygen Delivery Fraction of Inspired Oxygen 55 06/05/22 05:29 06/04/22 20:00 06/04/22 20:00 Temperature Pulse Rate 96 95 95 Respiratory Rate 26 H 26 H 26 H Blood Pressure Pulse Oximetry Oxygen Delivery Fraction of Inspired Oxygen 06/05/22 05:32 06/05/22 05:34 06/05/22 05:32 Temperature Pulse Rate 98 89 93 Respiratory Rate 26 H 26 H Blood Pressure 103/59 L Pulse Oximetry 94 Oxygen Delivery Mechanical Ventilation Fraction of Inspired Oxygen 55 06/05/22 02:55 06/05/22 06:00 06/05/22 06:00 Temperature 97.4 F L Pulse Rate 86 100 100 Respiratory Rate 26 H 26 H Blood Pressure 118/84 Pulse Oximetry 92 Oxygen Delivery Fraction of Inspired Oxygen 06/05/22 07:29 06/05/22 08:12 06/05/22 08:12 Temperature Pulse Rate 102 H 91 91 Respiratory Rate 26 H 26 H 26 H Blood Pressure 118/73 Pulse Oximetry Oxygen Delivery Fraction of Inspired Oxygen 06/05/22 08:50 06/05/22 08:26 06/05/22 08:31 Temperature Pulse Rate 95 96 93 Respiratory Rate 26 H Blood Pressure Pulse Oximetry 94 Oxygen Delivery Mechanical Ventilation Fraction of Inspired Oxygen 55 06/05/22 08:00 06/05/22 08:00 06/05/22 08:00 Temperature 97.5 F L Pulse Rate 99 99 Respiratory Rate 26 H Blood Pressure 122/60 Pulse Oximetry 93 Oxygen Delivery Fraction of Inspired Oxygen 50 06/05/22 08:26 06/05/22 09:22 06/05/22 08:00 Temperature Pulse Rate 99 97 99 Respiratory Rate 26 H 26 H 26 H Blood Pressure 124/64 110/67 Pulse Oximetry 93 Oxygen Delivery Mechanical Ventilation Fraction of Inspired Oxygen 50 06/05/22 10:00 06/05/22 10:00 06/05/22 10:30 Temperature 97.6 F Pulse Rate 91 91 86 Respiratory Rate 26 H 26 H Blood Pressure 116/73 91/65 L Pulse Oximetry 96 Oxygen Delivery Fraction of Inspired Oxygen 06/05/22 11:36 06/05/22 12:00 06/05/22 12:00 Temperature 98.2 F Pulse Rate 75 74 74 Respiratory Rate 26 H 26 H Blood Pressure 92/72 L 94/73 L Pulse Oximetry 95 Oxygen Delivery Fraction of Inspired Oxygen 06/05/22 12:00 06/05/22 12:00 06/05/22 10:00 Temperature Pulse Rate 74 91 Respiratory Rate 26 H 26 H Blood P
--- NOTE | 2022-06-05 18:37 | PM.IMPN ---
Progress Note: A&P Assessment and Plan (1) Acute respiratory failure with hypoxia: Code(s): J96.01 - Acute respiratory failure with hypoxia Status: Acute Assessment and Plan: Patient had recent COVID infection and was tested positive on 05/08/2022. Was treated with dexamethasone and baricitinib an outside hospital, ([facility]). Patient was discharged home on 6 L of oxygen. He has been having worsening shortness of breath since discharge from the hospital Urgently intubated today, placed on Levaquin per pulmonology, appreciate critical care management of the ventilator and pulmonology management of possible pneumonia Also receiving steroids per pulmonology for COVID (2) Venous thrombosis of lower extremity: Code(s): I82.90 - Acute embolism and thrombosis of unspecified vein Status: Acute Assessment and Plan: Patient has been on chronic warfarin, INR 4.3 this morning, given has history of aortic aneurysm repair cardiology (3) Venous thrombosis of upper extremity: Code(s): I82.609 - Acute embolism and thrombosis of unspecified veins of unspecified upper extremity Status: Acute Assessment and Plan: As above (4) Thrombocytopenia: Code(s): D69.6 - Thrombocytopenia, unspecified Status: Acute Assessment and Plan: Thrombocytopenia likely related to sepsis, chronic warfarin therapy (5) Paroxysmal atrial fibrillation: Code(s): I48.0 - Paroxysmal atrial fibrillation Status: Acute Assessment and Plan: Patient with history of paroxysmal AFib being followed by Cardiology, warfarin being transition to Lovenox due to clot burden while on therapeutic warfarin, amiodarone discontinued due to possible pulmonary toxicity (6) Diastolic congestive heart failure: Code(s): I50.30 - Unspecified diastolic (congestive) heart failure Status: Acute Assessment and Plan: Patient currently seems to be you volume, was diuresed by Cardiology but currently diuresis on hold Appreciate cardiology consultation Plan Full code Subjective Date/time seen: 06/05/22 18:37 Interval history: intubated, sedated, no overnight events Review of Systems Review of Systems: ROS unobtainable: Yes unobtainable due to endotracheal tube Exam Narrative: per catheter builder Objective Data Vital Signs Vital Signs: Vital Signs - 24 hr 06/04/22 20:28 06/04/22 20:30 06/04/22 20:00 Temperature 97.8 F Pulse Rate 84 84 95 Respiratory Rate 26 H 26 H Blood Pressure 106/78 Pulse Oximetry 97 97 Oxygen Delivery Mechanical Ventilation Fraction of Inspired Oxygen 90 06/04/22 20:00 06/04/22 22:00 06/04/22 20:45 Temperature 97.8 F Pulse Rate 97 88 Respiratory Rate 26 H 26 H Blood Pressure 111/66 Pulse Oximetry 98 Oxygen Delivery Fraction of Inspired Oxygen 90 06/04/22 23:01 06/05/22 00:00 06/05/22 00:00 Temperature 97.9 F Pulse Rate 95 97 Respiratory Rate 26 H Blood Pressure 110/68 Pulse Oximetry 98 97 Oxygen Delivery Mechanical Ventilation Fraction of Inspired Oxygen 70 90 06/05/22 01:49 06/04/22 20:00 06/04/22 22:00 Temperature Pulse Rate 107 H 93 92 Respiratory Rate 26 H 26 H Blood Pressure 103/79 123/83 107/67 Pulse Oximetry Oxygen Delivery Fraction of Inspired Oxygen 06/05/22 00:00 06/05/22 02:00 06/05/22 02:43 Temperature 97.9 F Pulse Rate 89 96 85 Respiratory Rate 26 H 26 H 26 H Blood Pressure 109/82 102/72 Pulse Oximetry 96 Oxygen Delivery Fraction of Inspired Oxygen 06/05/22 02:44 06/04/22 23:40 06/05/22 04:33 Temperature Pulse Rate 85 88 Respiratory Rate 26 H Blood Pressure 112/69 Pulse Oximetry 97 98 Oxygen Delivery Mechanical Ventilation Fraction of Inspired Oxygen 70 70 06/05/22 04:00 06/05/22 04:00 06/05/22 05:29 Temperature 97.8 F Pulse Rate 94 96 Respiratory Rate 26 H 26 H Blood Pressure 11
[2022-06-05 20:43] LABS: Anion Gap 9 mmol/L (8-16); Blood Urea Nitrogen 63 mg/dL (9-20); Calcium 7.4 mg/dL (8.4-10.2); Carbon Dioxide 25 mmol/L (22-30); Chloride 101 mmol/L (98-107); Estimated CRCL calculation 38 ml/min; Estimated Glomerular Filt Rate 39; Glucose 259 mg/dL (65-110); Potassium 4.7 mmol/L (3.4-5.0); Sodium 135 mmol/L (137-145)
[2022-06-05] MEDS: LACTATED RINGERS 1,000 ML 75 ML IV CONT (21:32)
[2022-06-05 23:12] LABS: Glucose Point of Care 202 mg/dl (65-105)
[2022-06-06] VITALS (51 sets, daily range): BP systolic 87–107; BP diastolic 57–70; PULSE 58–75; RESP 19–30; TEMP 35.7–37.2; O2SAT 91–99
[2022-06-06] MEDS: IPRATROPIUM BR 0.02% INH SOLN 0.5 MG/2.5 ML VIAL INHALATION ×4 (02:49→21:05)
[2022-06-06] MEDS: ALBUTEROL SULFATE NEB 2.5 MG/3 ML INH INHALATION ×4 (02:49→21:05)
[2022-06-06 04:21] LABS: Basophils Percent Auto 0.4 % (0.2-1.2); Hematocrit 40.4 % (42.0-52.0); Hemoglobin 12.3 g/dL (14.0-18.0); Immature Granulocyte Absolute 0.09 K/mm3 (0.00-0.031); Immature Granulocyte Percent A 1.7 % (0-0.5); Immature Platelet Fraction Pct 7.4 % (0.9-11.2); Lymphocytes Absolute Auto 0.44 K/mm3 (0.9-3.2); Lymphocytes Percent Auto 8.1 % (18.3-44.2); Mean Corpuscular HGB Conc 30.4 g/dl (32-36); Mean Corpuscular Hemoglobin 29.9 pg (26-34); Mean Corpuscular Volume 98.3 fl (80-100); Mean Platelet Volume 11.8 fl (7.4-10.4); Monocytes Absolute Auto 0.6 K/mm3 (0.1-0.6); Monocytes Percent Auto 11.4 % (2.6-8.5); Neutrophils Absolute Auto 4.3 K/mm3 (1.3-6.7); Neutrophils Percent Auto 78.4 % (45.5-73.1); Nucleated Red Blood Cells Perc 0.6 % (0.0-0.2); Platelet Count Result 145 k/mm3 (150-375); Red Blood Count 4.11 M/mm3 (4.6-6.20); Red Cell Distribution Width 13.4 % (11.5-14.5); White Blood Count 5.5 K/mm3 (4.5-10.0)
[2022-06-06 04:31] LABS: INR 4.5; Prothrombin Time 41.2 Seconds (11.1-14.7)
[2022-06-06 04:32] LABS: Partial Thromboplastin Time 38.2 SECONDS (22.3-36.8)
[2022-06-06 04:33] LABS: Alanine Aminotransferase 24 U/L (6-50); Albumin Level 2.6 g/dL (3.5-5.1); Alkaline Phosphatase 84 U/L (38-126); Anion Gap 6 mmol/L (8-16); Aspartate Amino Transferase 19 U/L (17-59); Bilirubin,Total 0.5 mg/dL (0.2-1.3); Blood Urea Nitrogen 66 mg/dL (9-20); Calcium 7.3 mg/dL (8.4-10.2); Carbon Dioxide 27 mmol/L (22-30); Chloride 104 mmol/L (98-107); Estimated CRCL calculation 38 ml/min; Estimated Glomerular Filt Rate 39; Glucose 214 mg/dL (65-110); Magnesium 2.7 mg/dL (1.6-2.3); Phosphorus 3.7 mg/dL (2.5-4.5); Potassium 4.7 mmol/L (3.4-5.0); Sodium 137 mmol/L (137-145)
[2022-06-06] MEDS: INSULIN ASPART (*BKC) 100 UNITS/ML SUB-Q ×3 (05:07→23:53)
[2022-06-06 05:57] LABS: Alveolar/Arterial O2 Gradient 354.3 mmHg; Base Excess ABG -0.9 mEq/l (+/-2.0); Carboxyhemoglobin 0.2 % THb (0-2.0); Fractional Inspired Oxygen 70 %; HCO3 ABG 26.9 mEq/l (22.0-26.0); Methemoglobin ABG 0.3 %THb (0-1.5); Oxygen Content ABG 18.8 %vol (16.0-22.0); Oxygen Saturation ABG 94.8 % (95.0-100.0); Oxyhemoglobin 94.6 % THb (90.0-100.0); PCO2 ABG 57.7 mmHg (35.0-45.0); PO2 ABG 82.8 mmHg (80.0-100.0); PO2 FiO2 Ratio Arterial Blood 1.18 %; Reduced Hemoglobin 4.9 %THb (0-5.0); Total Hemoglobin 14.1 g/dL (12.0-18.0)
[2022-06-06 06:00] LABS: Arterial Blood Gas Vent Mode CMV; Arterial Blood Gas Ventilator rate 26 /MIN; Device VENTILATOR; Modified Allen's Test Pass; Site Drawn LEFT RADIAL; pH ABG 7.286 (7.350-7.450)
[2022-06-06 06:01] LABS: Arterial Blood Gas PEEP 8 cmH2O; Arterial Blood Gas Tidal Volume 400 ml
[2022-06-06] MEDS: FENTANYL 2,500MCG/NS250ML(*CRX 2,500 MCG/250 ML BAG 15 MCG IV CONT ×2 (07:09→21:47)
--- NOTE | 2022-06-06 07:58 | PM.PNCARD ---
Progress Note: A&P Assessment and Plan (1) Dyspnea: Code(s): R06.00 - Dyspnea, unspecified Status: Acute Assessment and Plan: Probably due to recent covid pneumonia and possibly pulm embolism. Elevated NTproBNP and CXR with possible mild pulm edema. Given Lasix 40 mg IV x1 for that. Lasix 20 mg PO daily on hold as he appears to be euvolemic. Covid pneumonia or healthcare acquired pneumonia, management as per hospitalist. Echo shows EF 55-60%, mild LVH, RV hypokinesis, mild LAE, mild MR, mild-mod TR, RVSP 47 mmHg, Aortic root size 4.4 cm. Will sign off, please call with any questions. (2) Elevated troponin: Code(s): R77.8 - Other specified abnormalities of plasma proteins Status: Acute Assessment and Plan: Mild elevation. Peaked at 0.048. Probably related to SOB with covid pneumonia and/or CHF. Symptoms do not suggest ACS and EKG shows no acute changes. (3) Coronary artery disease: Code(s): I25.10 - Atherosclerotic heart disease of [place] coronary artery without angina pectoris Status: Acute Assessment and Plan: Stable. (4) PAF (paroxysmal atrial fibrillation): Code(s): I48.0 - Paroxysmal atrial fibrillation Status: Acute Assessment and Plan: In Sinus rhythm. Was on Amiodarone 200 mg daily as that was able to maintain sinus rhythm. On Warfarin for this and history of recurrent DVT. Hold Warfarin given gross hematuria in tamayo bag and anticipate transitioning to Lovenox once INR <2.[address] Tobin about stopping Amiodarone as it can have synergistic effect with covid pneumonia in worsening pulm status. Stopped Amiodarone. Started Metoprolol Tartate 12.5 mg BID to suppress ectopies and arrhythmias if BP can tolerate. (5) PSVT (paroxysmal supraventricular tachycardia): Code(s): I47.1 - Supraventricular tachycardia Status: Acute (6) Dyslipidemia: Code(s): E78.5 - Hyperlipidemia, unspecified Status: Acute Assessment and Plan: On Pravastatin. (7) Venous thrombosis of upper extremity: Code(s): I82.609 - Acute embolism and thrombosis of unspecified veins of unspecified upper extremity Status: Acute Assessment and Plan: Plan is to transition to Lovenox from warfarin. He did have some gross hematuria. (8) Venous thrombosis of lower extremity: Code(s): I82.90 - Acute embolism and thrombosis of unspecified vein Status: Acute Subjective Date/time seen: 06/06/22 07:58 Sedated on ventilator. Exam Const: General: cooperative, healthy appearing and comfortable Resp: Auscultation: no crackles, no rales, no rhonchi, no wheezes and diminished lung sounds Cardio: Jugular venous distension: no JVD Rate: regular rate Rhythm: regular rhythm Heart sounds: no murmurs Peripheral pulses: dorsalis pedis present GI: GI Palp: No abdominal tenderness and Yes Soft to palpation Neuro: General: oriented to person, oriented to place and oriented to time Extrem: Right lower extremity: no edema Left lower extremity: no edema Objective Data Vital Signs Vital Signs: Vital Signs - 24 hr 06/05/22 08:12 06/05/22 08:12 06/05/22 08:50 Temperature Pulse Rate 91 91 95 Respiratory Rate 26 H 26 H Blood Pressure Pulse Oximetry Oxygen Delivery Fraction of Inspired Oxygen 06/05/22 08:26 06/05/22 08:31 06/05/22 08:00 Temperature Pulse Rate 96 93 Respiratory Rate 26 H Blood Pressure Pulse Oximetry 94 Oxygen Delivery Mechanical Ventilation Fraction of Inspired Oxygen 55 50 06/05/22 08:00 06/05/22 08:00 06/05/22 08:26 Temperature 97.5 F L Pulse Rate 99 99 99 Respiratory Rate 26 H 26 H Blood Pressure 122/60 124/64 Pulse Oximetry 93 Oxygen Delivery Fraction of Inspired Oxygen 06/05/22 09:22 06/05/22 08:00 06/05/22 10:00 Temperature Pulse Rate 97 99 91 Respiratory Rate 26 H 26 H Blood Pressure 110/67 Pulse Oximetry 93 Oxygen Deliver
[2022-06-06] MEDS: ROCURONIUM BROMIDE 50 MG/5 ML VIAL IV PUSH (08:30)
[2022-06-06] MEDS: MINERAL OIL/WHITE PETROLATUM OINTMENT 1 APPLIC EACH EYE ×2 (08:34→20:18)
[2022-06-06] MEDS: PANTOPRAZOLE SODIUM IV 40 MG VIAL IV PUSH (08:38)
[2022-06-06] MEDS: methylPREDNISolone SOD SUCC 125 MG VIAL 80 MG IV PUSH (08:38)
[2022-06-06] MEDS: INSULIN GLARGINE (*BKC) 100 UNITS/ML SUB-Q (08:56)
[2022-06-06] MEDS: PRAVASTATIN SODIUM 10 MG TABLET BY MOUTH (08:59)
[2022-06-06 09:05] LABS: Glucose Point of Care 211 mg/dl (65-105)
--- NOTE | 2022-06-06 09:18 | WPDINTPN ---
Progress Note: A&P Assessment and Plan (1) Acute respiratory failure with hypoxia: Code(s): J96.01 - Acute respiratory failure with hypoxia Status: Acute Assessment and Plan: Patient had recent COVID infection and was tested positive on 05/08/2022. Was treated with dexamethasone and baricitinib an outside hospital, ([facility] Patient was discharged home on 6 L of oxygen. He has been having worsening shortness of breath since discharge from the hospital on 11/23/2021. -on 06/01 patient presented to the ED with hypoxic respiratory failure, - CT scan of the chest from 06/03/2022 showed diffuse bilateral lung disease with dependent predominance, n the acute setting differential would include pneumonia including reported history of COVID pneumonia or moderate pulmonary edema. Differential would include less likely drug-induced pneumonitis and chronic eosinophilic pneumonia. Cardiomegaly. Mild likely reactive mediastinal lymphadenopathy -pulmonology following and feel it is more interstitial lung disease/organizing pneumonia post COVID. -continue Solu-Medrol per pulmonology -patient was intubated on 06/04/2022 worsening shortness of breath, impending respiratory failure, significant tachypnea, hypoxia, using accessory muscles. -ARDS physiology, using low tidal volume strategy -currently on CMV mode of ventilation, tidal volume 400 (5 mL/kilogram), peep of 8, 70% FiO2 . Patient is dyssynchronous with the ventilator, new O2 sat Sensor with improved O2 sats, wean FiO2 to maintain O2 sats greater than 92% -Chest x-ray 06/06/2022: Small bilateral pneumothoraces, stable diffuse lung disease consistent with pulmonary edema versus pneumonia superimposed on chronic lung disease, cardiomegaly -will obtain CT chest without contrast -patient is sedated with fentanyl and Versed infusion, Nimbex was discontinued on 06/05/2022. Will restart Nimbex for ventilator synchrony -continue Levaquin per pulmonology (2) Venous thrombosis of lower extremity: Code(s): I82.90 - Acute embolism and thrombosis of unspecified vein Status: Acute Assessment and Plan: Patient has been on chronic warfarin, INR 4.5 this morning -per western philosophy professor will transition to Lovenox from possible failed warfarin therapy once INR is 2-2.5 -06/02/2022 Venous Dopplers showed Both above and [id number] deep venous thrombosis at both the right and left lower limbs AND Thrombosis of the bilateral cephalic veins, throughout the left upper arm and forearm on the left and more distally in the right forearm on the right. (3) Venous thrombosis of upper extremity: Code(s): I82.609 - Acute embolism and thrombosis of unspecified veins of unspecified upper extremity Status: Acute Assessment and Plan: As above (4) Thrombocytopenia: Code(s): D69.6 - Thrombocytopenia, unspecified Status: Acute Assessment and Plan: Thrombocytopenia likely related to sepsis, chronic warfarin therapy -hemoglobin has been stable -platelet counts have improved to 145 on 06/06/2022 -will continue to monitor for bleeding (5) Paroxysmal atrial fibrillation: Code(s): I48.0 - Paroxysmal atrial fibrillation Status: Acute Assessment and Plan: Patient with history of paroxysmal AFib being followed by Cardiology -patient was in a amiodarone which was maintaining sinus rhythm and the patient, -patient was on warfarin with melina hematuria, warfarin currently on hold, will transition to therapeutic Lovenox once INR is 2.0-2.5. -INR THIS MORNING (06/06) IS 4.5 -amiodarone can also cause pulmonary toxicity/interstitial pneumonitis, -amiodarone was stopped for that reason -started p.o. metoprolol on 06/05/2022, currently in sinus rhythm, rate controlled (6) Diastolic congestive heart failure: Code(s): I50.30 - Unspecified diastolic (congestive) heart failure Status: Acute Assessment and Plan: Patient currently seems t
[2022-06-06] MEDS: CISATRACURIUM BESYLATE 200 MG in DEXTROSE 5% 80 ML 8.14 ML IV CONT ×2 (09:51→23:55)
--- NOTE | 2022-06-06 11:16 | PM.CNNEP ---
Assessment and Plan Additional Plan 1. Osmel has acute kidney injury. He has had an ultrasound of the kidneys which was normal. He had urine electrolytes. Urine sodium is 22 and urine creatinine is high at 123. Fracture Koul excretion of sodium is low consistent with pre renal azotemia. Urinalysis shows trace protein and a bland sediment. It seems time and best with the low blood pressure. Often times people with COPD are hyperventilating and have increased insensible loss. The patient did have swelling but this could be from chronic pulmonary hypertension. So I believe the patient is probably a little pre renal right now between the mild volume depletion plus also his low blood pressure. I agree with giving some IV fluids. He got some IV fluids last night from Dr. Valdez and he is currently on lactated Ringer's at75cc an hour. Because of the COVID I do not want to give him lots of IV fluids but giving him this amount of IV fluids I think would be good. Notably his urine output has improved a little bit since the fluid bolus indicating a positive response to the fluid. Other possibilities include allergic interstitial nephritis because he has been in 2 different hospitals all month and has received lots of antibiotics. He does not have a rash however or fever or eosinophilia which makes this less likely. Medication side effects or always possible as well. The patient was on vancomycin. He is not on this anymore. He is had no high vancomycin levels. 2. The patient has severe COPD. He is getting pulmonary support. 3. He has coronary disease and diastolic congestive heart failure. Getting supportive care. 4. He has sleep apnea. He is on the ventilator. 5. He has hypertension. His blood pressure meds are on hold. 6. His potassium is doing okay. History of Present Illness Reason for Consult Consult date: 06/06/22 Chief Complaint Chief complaint: Acute respiratory failure with hypoxia, CHF History of Present Illness Narrative: Osmel is an unfortunate 77-year-old gentleman who has multiple medical problems including significant COPD, adrenal adenoma, arthritis, DVTs, paroxysmal atrial fibrillation, diastolic congestive heart failure, coronary artery disease, ascending aortic aneurysm status post repair in November of 2019, obstructive sleep apnea on CPAP, hypertension, diverticulosis, BPH, and basal cell carcinoma of the face. The patient came into the hospital on the 31 of May with shortness of breath. He a apparently had been diagnosed with COVID on the 08 of May. He gets short of breath with this and went to [facility] in [place]. He never needed to be intubated there he did require lots of oxygen with high-flow system. He received Dexamethasone and baricitinib and made somewhat of a recovery and was transferred to a rehab facility. He left there after 2 days against medical advice. He was at home with a cough. Apparently a few days before admission the patient became more short of breath. This progressed until he decided to come to the emergency room. In the ER he was evaluated and felt still to have symptoms from COVID. He is felt to possibly have volume overload as well. He was admitted to the hospital and treated. He was given diuretics, antibiotics, pulmonary toilet, and supportive care. On around the 04 of June the patient developed more shortness of breath. He was given diuretics. Eventually critical care consulted and moved him to the ICU. He became so short of breath that they decided to intubate him. His blood pressure was a little bit soft that day and in the following couple of days until today. He received a bolus of IV fluids yesterday. In the meantime his creatinine tata. The baseline was 0.9 than yesterday it was 1.4 today was 1.7 so renal consultation was requested. Over the last few hours his systolic blood pressure is come above 100. The patient cannot give a history. The information was gleaned
[2022-06-06] MEDS: polyethylene glycoL 3350 17 GM POWD.PACK PO (11:29)
--- NOTE | 2022-06-06 11:51 | PCNFU ---
Nutrition Follow-Up Complete: Unintentional weight loss related to reduced appetite and intake as evidenced by self reported wt loss of 30# over 1 month goal; PO intake to remain 75% or greater most meals. new goal: meet estimated nutritional needs. Pt current nutrition is Vital AF 1.2 at 75 ml/hr. Last recorded weight is 90.8 kg, up from 91.9 gms protein. Bowel Motility:No BM reported, Miralax started. Labs Reviewed:Glu 214, GFR 39, BUN 66, Cr 1.7,Hct 40.4,Hgb 12.3 Meds Noted:Fentanyl, Versed, Solu Medrol, Atrovent, Lopressor,Nimbex. Skin:WNL Additional Notes: Patient remains on mechanical vent and tube feedings of Vital AF 1.2 at goal rate of 75 ml/hr. Tolerating feedings, which are providing 1980 kcals/124 gm protein/1338 ml water. Free water flush 30 ml q 4 hours. Meeting 92% kcal needs and 100% protein needs. Chest xray improving. Renal US-neg. Agree with diet orders. Monitoring in ICU rounds and reassessing every Thursday and Thursday.
[2022-06-06 12:00] LABS: Glucose Point of Care 200 mg/dl (65-105)
--- NOTE | 2022-06-06 12:25 | PM.PNPUL ---
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 The patient returned with shortness of breath. Chest diagnostic studies have shown bilateral infiltrates. chest CT showed bilateral infiltrates consistent with organizing pneumonia following COVID 19 pneumonia. The patient was intubated and transferred to the intensive care unit following worsening of gas exchange. Over the last 24 hours his respiratory status has been unchanged or little improved. A chest x-ray done today showed no new infiltrates, but bilateral pneumothoraces. subsequent CT confirmed small bilateral pneumothoraces pneumomediastinum and essentially unchanged infiltrates bilaterally. sputum culture negative so far Plan: patient will remain on IV Solu-Medrol 80 mg daily. INR still elevated following discontinuation of warfarin. the patient developed new upper and lower extremity thrombi while on warfarin. Plan is to transition patient to full-dose subQ Lovenox once INR is around 2. (2) Recurrent deep vein thrombosis (DVT): Code(s): I82.409 - Acute embolism and thrombosis of unspecified deep veins of unspecified lower extremity Status: Acute (3) Interstitial lung disease: Code(s): J84.9 - Interstitial pulmonary disease, unspecified Status: Acute (4) Paroxysmal atrial fibrillation: Code(s): I48.0 - Paroxysmal atrial fibrillation Status: Acute (5) Diastolic congestive heart failure: Code(s): I50.30 - Unspecified diastolic (congestive) heart failure Status: Acute (6) PAF (paroxysmal atrial fibrillation): Code(s): I48.0 - Paroxysmal atrial fibrillation Status: Acute (7) Dyspnea: Code(s): R06.00 - Dyspnea, unspecified Status: Acute (8) Chronic anticoagulation: Code(s): Z79.01 - long-term (current) use of anticoagulants Status: Acute Subjective Date/time seen: 06/06/22 12:25 patient remains intubated fully sedated on mechanical ventilation. Small bilateral pneumothoraces noted on today's chest x-ray. No significant worsening of gas exchange. worsening of renal function noted Review of Systems Review of Systems: All system review is negative except as noted in HPI and below Exam Narrative: GENERAL APPEARANCE: Well developed, well nourished, fully sedated on MV SKIN: Inspection of the skin reveals no rashes, ulcerations or petechiae. HEENT: Sclerae anicteric and conjunctivae pink and moist. NECK: Supple. There was no thyroid enlargement.. LUNGS: Auscultation of the lungs clear breath sounds anteriorly, no wheezing CARDIAC: There was a regular rate and rhythm without any murmurs, gallops, rubs. ABDOMEN: Soft with normal bowel sounds. There was no organomegaly. LYMPH NODES: No lymphadenopathy was appreciated in the neck EXTREMITIES: No cyanosis, clubbing. chronic lower leg discoloration. NEUROLOGIC: fully sedated on mechanical ventilation Objective Data Vital Signs Vital Signs: Vital Signs - 24 hr 06/05/22 13:10 06/05/22 13:21 06/05/22 13:22 Temperature Pulse Rate 78 79 75 Respiratory Rate 26 H 26 H Blood Pressure Pulse Oximetry 94 Oxygen Delivery Mechanical Ventilation Fraction of Inspired Oxygen 55 06/05/22 14:00 06/05/22 14:00 06/05/22 12:30 Temperature 37.1 C Pulse Rate 75 75 75 Respiratory Rate 26 H 26 H Blood Pressure 88/66 L 96/66 L Pulse Oximetry 94 Oxygen Delivery Fraction of Inspired Oxygen
[2022-06-06 13:14] LABS: Appearance Urine Cloudy (Clear); Bilirubin Urine Negative (Negative); Blood Urine 3+ (Negative); Color Urine Yellow (Yellow); Glucose Urine UA Negative (Negative); Ketones Urine Negative (Negative); Leukocyte Esterase Ur Negative LEU/UL (Negative); Nitrate Urine Negative (Negative); Protein Urine 1+ mg/dL (Negative); Specific Grav Ur >= 1.030 (1.001-1.035); pH Urine 5.5 (5.0-9.0)
[2022-06-06 13:21] LABS: Bacteria Urine Trace /hpf; Budding Yeast Urine Present /hpf; Hyaline Casts Urine 15-19 /lpf; Mucus Urine Few /lpf; RBC Urine >75 /hpf (0-2); Squamous Epithelial Cell Urine Rare /hpf (Few); Uric Acid Crystals Urine Present /hpf; WBC Urine >75 /hpf
[2022-06-06 13:39] LABS: Add Urine Microscopic? YES
[2022-06-06] MEDS: LACTATED RINGERS 1,000 ML 75 ML IV CONT (14:12)
--- NOTE | 2022-06-06 17:24 | PM.IMPN ---
Progress Note: A&P Assessment and Plan (1) Acute respiratory failure with hypoxia: Code(s): J96.01 - Acute respiratory failure with hypoxia Status: Acute Assessment and Plan: Patient had recent COVID infection and was tested positive on 05/08/2022. Was treated with dexamethasone and baricitinib an outside hospital, ([facility]). Patient was discharged home on 6 L of oxygen. He has been having worsening shortness of breath since discharge from the hospital Urgently intubated today, placed on Levaquin per pulmonology, appreciate critical care management of the ventilator and pulmonology management of possible pneumonia Also receiving steroids per pulmonology for COVID (2) Venous thrombosis of lower extremity: Code(s): I82.90 - Acute embolism and thrombosis of unspecified vein Status: Acute Assessment and Plan: Patient has been on chronic warfarin, INR 4.5 this morning, given history of aortic aneurysm repair cardiology, coumadin has been held since 06/02/22 (3) Venous thrombosis of upper extremity: Code(s): I82.609 - Acute embolism and thrombosis of unspecified veins of unspecified upper extremity Status: Acute Assessment and Plan: As above (4) Thrombocytopenia: Code(s): D69.6 - Thrombocytopenia, unspecified Status: Acute Assessment and Plan: Thrombocytopenia likely related to sepsis, chronic warfarin therapy (5) Paroxysmal atrial fibrillation: Code(s): I48.0 - Paroxysmal atrial fibrillation Status: Acute Assessment and Plan: Patient with history of paroxysmal AFib being followed by Cardiology, warfarin being transition to Lovenox due to clot burden while on therapeutic warfarin, amiodarone discontinued due to possible pulmonary toxicity (6) Diastolic congestive heart failure: Code(s): I50.30 - Unspecified diastolic (congestive) heart failure Status: Acute Assessment and Plan: Patient currently seems to be euvolemic, was diuresed by Cardiology who has now signed off Plan Full code Subjective Date/time seen: 06/06/22 17:24 Interval history: Intubated, sedated, no overnight events. Tolerating tube feeds. 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 Objective Data Vital Signs Vital Signs: Vital Signs - 24 hr 06/05/22 18:29 06/05/22 18:30 06/05/22 18:00 Temperature Pulse Rate 75 74 75 Respiratory Rate 26 H 26 H Blood Pressure Pulse Oximetry Oxygen Delivery Fraction of Inspired Oxygen 06/05/22 18:00 06/05/22 19:56 06/05/22 19:59 Temperature 98.8 F Pulse Rate 75 76 Respiratory Rate 22 H 30 H Blood Pressure 108/70 Pulse Oximetry 90 Oxygen Delivery Fraction of Inspired Oxygen 65 06/05/22 20:00 06/05/22 20:00 06/05/22 20:02 Temperature 98.7 F Pulse Rate 76 78 75 Respiratory Rate 30 H 23 H Blood Pressure 101/66 Pulse Oximetry 93 Oxygen Delivery Fraction of Inspired Oxygen 06/05/22 20:00 06/05/22 20:00 06/05/22 20:44 Temperature Pulse Rate 75 76 72 Respiratory Rate 27 H 28 H Blood Pressure Pulse Oximetry 92 Oxygen Delivery Mechanical Ventilation Fraction of Inspired Oxygen 65 06/05/22 20:45 06/05/22 22:00 06/05/22 22:00 Temperature 98.4 F Pulse Rate 72 67 71 Respiratory Rate 20 Blood Pressure 92/65 L Pulse Oximetry 91 94 Oxygen Delivery Mechanical Ventilation Fraction of Inspired Oxygen 65 06/05/22 23:02 06/05/22 23:05 06/05/22 23:05 Temperature Pulse Rate 65 72 73 Respiratory Rate 26 H 22 H 22 H Blood Pressure Pulse Oximetry Oxygen Delivery Fraction of Inspired Oxygen 06/05/22 23:32 06/05/22 21:00 06/05/22 21:15 Temperature Pulse Rate 67 74 Respiratory Rate 28 H Blood Pressure Pulse Oximetry 94 92 Oxygen Delivery Mechanical Ventilation Fract
[2022-06-06 18:13] LABS: Glucose Point of Care 279 mg/dl (65-105)
[2022-06-06] MEDS: MIDAZOLAM 100MG/NS 100ML(*CRX) 100 MG/100 ML BAG IV CONT (18:24)
[2022-06-06] MEDS: METOPROLOL TARTRATE 12.5 MG TABLET PO (20:18)
--- NOTE | 2022-06-06 20:43 | ECG_ITS ---
Measurements Intervals [place] Rate: 69 P: 15 AK: 93 QRS: -8 QRSD: 131 T: 94 QT: 384 QTc: 412 Interpretive Statements SINUS RHYTHM WITH SHORT AK INTERVAL INTRAVENTRICULAR CONDUCTION DELAY [130+ ms QRS DURATION] SEPTAL MYOCARDIAL INFARCTION [40+ ms Q WAVE IN V1/V2], OF INDETERMINATE AGE COMPARED TO ECG 05/31/2022 15:00:52 PREMATURE ATRIAL BEATS ARE NOT SEEN Electronically Signed On 06-07-2022 7:18:54 CDT by Josep Mantilla M.D.
[2022-06-06 21:57] LABS: Troponin I 0.017 ng/mL (0.000-0.034)
[2022-06-07] VITALS (54 sets, daily range): BP systolic 82–124; BP diastolic 52–80; PULSE 1–81; RESP 21–32; TEMP 36.2–37.6; O2SAT 80–98
[2022-06-07 00:10] LABS: Glucose Point of Care 295 mg/dl (65-105)
[2022-06-07] MEDS: IPRATROPIUM BR 0.02% INH SOLN 0.5 MG/2.5 ML VIAL INHALATION ×4 (02:30→20:39)
[2022-06-07] MEDS: ALBUTEROL SULFATE NEB 2.5 MG/3 ML INH INHALATION ×4 (02:30→20:39)
[2022-06-07] MEDS: LACTATED RINGERS 1,000 ML 75 ML IV CONT (02:45)
[2022-06-07 04:34] LABS: Basophils Percent Auto 0.3 % (0.2-1.2); Hematocrit 34.7 % (42.0-52.0); Hemoglobin 10.5 g/dL (14.0-18.0); Immature Granulocyte Absolute 0.06 K/mm3 (0.00-0.031); Immature Granulocyte Percent A 1.8 % (0-0.5); Lymphocytes Absolute Auto 0.32 K/mm3 (0.9-3.2); Lymphocytes Percent Auto 9.5 % (18.3-44.2); Mean Corpuscular HGB Conc 30.3 g/dl (32-36); Mean Corpuscular Volume 99.1 fl (80-100); Mean Platelet Volume 11.4 fl (7.4-10.4); Monocytes Absolute Auto 0.4 K/mm3 (0.1-0.6); Monocytes Percent Auto 12.8 % (2.6-8.5); Neutrophils Absolute Auto 2.6 K/mm3 (1.3-6.7); Neutrophils Percent Auto 75.6 % (45.5-73.1); Nucleated Red Blood Cells Perc 0.9 % (0.0-0.2); Platelet Count Result 141 k/mm3 (150-375); Red Cell Distribution Width 13.6 % (11.5-14.5); White Blood Count 3.4 K/mm3 (4.5-10.0)
[2022-06-07 04:48] LABS: INR 3.5; Prothrombin Time 34.2 Seconds (11.1-14.7)
[2022-06-07 04:54] LABS: Alanine Aminotransferase 18 U/L (6-50); Albumin Level 2.2 g/dL (3.5-5.1); Alkaline Phosphatase 64 U/L (38-126); Anion Gap 4 mmol/L (8-16); Aspartate Amino Transferase 13 U/L (17-59); Bilirubin,Total 0.4 mg/dL (0.2-1.3); Blood Urea Nitrogen 74 mg/dL (9-20); Calcium 7.6 mg/dL (8.4-10.2); Carbon Dioxide 28 mmol/L (22-30); Chloride 104 mmol/L (98-107); Estimated CRCL calculation 46 ml/min; Estimated Glomerular Filt Rate 49; Glucose 271 mg/dL (65-110); Magnesium 2.9 mg/dL (1.6-2.3); Phosphorus 2.6 mg/dL (2.5-4.5); Potassium 5.3 mmol/L (3.4-5.0); Sodium 136 mmol/L (137-145)
[2022-06-07 05:21] LABS: Alveolar/Arterial O2 Gradient 243.3 mmHg; Base Excess ABG 0.9 mEq/l (+/-2.0); Carboxyhemoglobin 0.3 % THb (0-2.0); Fractional Inspired Oxygen 50 %; HCO3 ABG 26.4 mEq/l (22.0-26.0); Methemoglobin ABG 0.4 %THb (0-1.5); Oxygen Content ABG 14.9 %vol (16.0-22.0); Oxygen Saturation ABG 90.9 % (95.0-100.0); Oxyhemoglobin 91.2 % THb (90.0-100.0); PCO2 ABG 46.1 mmHg (35.0-45.0); PO2 ABG 61.3 mmHg (80.0-100.0); PO2 FiO2 Ratio Arterial Blood 1.23 %; Reduced Hemoglobin 8.1 %THb (0-5.0); Total Hemoglobin 11.6 g/dL (12.0-18.0); pH ABG 7.376 (7.350-7.450)
[2022-06-07 05:22] LABS: Arterial Blood Gas Ventilator rate 26 /MIN; Device VENTILATOR; Modified Allen's Test Pass; Site Drawn RIGHT RADIAL
[2022-06-07 05:23] LABS: Arterial Blood Gas PEEP 5 cmH2O; Arterial Blood Gas Tidal Volume 400 ml; Arterial Blood Gas Vent Mode CMV
[2022-06-07] MEDS: INSULIN ASPART (*BKC) 100 UNITS/ML SUB-Q ×6 (06:00→23:38)
--- NOTE | 2022-06-07 08:41 | WPDINTPN ---
Progress Note: A&P Assessment and Plan (1) Acute respiratory failure with hypoxia: Code(s): J96.01 - Acute respiratory failure with hypoxia Status: Acute Assessment and Plan: Patient had recent COVID infection and was tested positive on 05/08/2022. Was treated with dexamethasone and baricitinib an outside hospital, ([facility]). Patient was discharged home on 6 L of oxygen. He has been having worsening shortness of breath since discharge from the hospital on 11/23/2021. -on 06/01 patient presented to the ED with hypoxic respiratory failure, - CT scan of the chest from 06/03/2022 showed diffuse bilateral lung disease with dependent predominance, n the acute setting differential would include pneumonia including reported history of COVID pneumonia or moderate pulmonary edema. Differential would include less likely drug-induced pneumonitis and chronic eosinophilic pneumonia. Cardiomegaly. Mild likely reactive mediastinal lymphadenopathy -pulmonology following and feel it is more interstitial lung disease/organizing pneumonia post COVID. -continue Solu-Medrol per pulmonology -patient was intubated on 06/04/2022 worsening shortness of breath, impending respiratory failure, significant tachypnea, hypoxia, using accessory muscles. -ARDS physiology, using low tidal volume strategy - 06/06 HRCT IMPRESSION: 1. Small bilateral pneumothoraces. 2. Pneumomediastinum. 3. Diffuse lung disease with volume loss when compared to 06/03/22, consistent with pulmonary edema versus pneumonia versus acute respiratory distress syndrome (ARDS). -currently on CMV mode of ventilation, tidal volume 400 (5 mL/kilogram), peep of 5, 50% FiO2 . -06/07 chest x-ray reviewed - ?Persistent diffuse bilateral pulmonary infiltrates. Resolution of bilateral pneumothoraces, diminished subcutaneous emphysema of the upper chest and neck -patient is sedated with fentanyl and Versed infusion in paralyzed with Nimbex wa -will hold Nimbex this morning and see how patient does -continue Levaquin per pulmonology (2) Venous thrombosis of lower extremity: Code(s): I82.90 - Acute embolism and thrombosis of unspecified vein Status: Acute Assessment and Plan: Patient has been on chronic warfarin, INR 3.5 this morning -per supersonic engineer will transition to Lovenox from possible failed warfarin therapy once INR is 2-2.5 -06/02/2022 Venous Dopplers showed Both above and [id number] deep venous thrombosis at both the right and left lower limbs AND Thrombosis of the bilateral cephalic veins, throughout the left upper arm and forearm on the left and more distally in the right forearm on the right. (3) Venous thrombosis of upper extremity: Code(s): I82.609 - Acute embolism and thrombosis of unspecified veins of unspecified upper extremity Status: Acute Assessment and Plan: As above (4) Thrombocytopenia: Code(s): D69.6 - Thrombocytopenia, unspecified Status: Acute Assessment and Plan: Thrombocytopenia likely related to sepsis, chronic warfarin therapy -hemoglobin has been stable -platelet counts is improving -will continue to monitor for bleeding (5) Paroxysmal atrial fibrillation: Code(s): I48.0 - Paroxysmal atrial fibrillation Status: Acute Assessment and Plan: Patient with history of paroxysmal AFib being followed by Cardiology -patient was in a amiodarone which was maintaining sinus rhythm and the patient, -patient was on warfarin with melina hematuria, warfarin currently on hold, will transition to therapeutic heparin or Lovenox once INR is 2.0-2.5. -INR THIS MORNING (06/07) IS 3.5 -amiodarone can also cause pulmonary toxicity/interstitial pneumonitis, -amiodarone was stopped for that reason -started p.o. metoprolol on 06/05/2022, currently in sinus rhythm, rate controlled (6) Diastolic congestive heart failure: Code(s): I50.30 - Unspecified diastolic (congestive) heart failure Status:
[2022-06-07] MEDS: CALCIUM GLUC 1,000 MG/NS 50 ML 1,000 MG/50 ML BAG 100 MG IVPB (08:51)
[2022-06-07] MEDS: SODIUM ZIRCONIUM CYCLOSILICATE 10 GM POWD.PACK FEED TUBE (08:51)
[2022-06-07] MEDS: polyethylene glycoL 3350 17 GM POWD.PACK PO (08:56)
[2022-06-07] MEDS: methylPREDNISolone SOD SUCC 125 MG VIAL 80 MG IV PUSH (08:57)
[2022-06-07] MEDS: PANTOPRAZOLE SODIUM IV 40 MG VIAL IV PUSH (08:57)
[2022-06-07] MEDS: FUROSEMIDE INJ 40 MG/4 ML VIAL IV PUSH (09:00)
[2022-06-07] MEDS: SODIUM CHLORIDE 0.9% IV 1,000 ML 75 ML IV CONT ×2 (09:00→16:33)
[2022-06-07] MEDS: MINERAL OIL/WHITE PETROLATUM OINTMENT 1 APPLIC EACH EYE ×2 (09:04→20:09)
[2022-06-07] MEDS: PRAVASTATIN SODIUM 10 MG TABLET BY MOUTH (09:08)
[2022-06-07] MEDS: INSULIN GLARGINE (*BKC) 100 UNITS/ML 10 UNITS SUB-Q (09:24)
[2022-06-07 09:34] LABS: Glucose Point of Care 283 mg/dl (65-105)
--- NOTE | 2022-06-07 10:38 | PM.PNNEP ---
Progress Note: A&P Additional Plan 1. Osmel has acute kidney injury. He has had an ultrasound of the kidneys which was normal. He had urine electrolytes. Urine sodium is 22 and urine creatinine is high at 123. Fractional excretion of sodium is low consistent with pre renal azotemia. Urinalysis shows trace protein and a bland sediment. CK is not down. Most likely the rise in creatinine is due to pre renal azotemia from low blood pressure and volume depletion. He received some fluid yesterday. His urine output is better and his creatinine is down. Will continue the IV fluids for another day and see how he looks tomorrow. 2. The patient has severe COPD. He is getting pulmonary support. 3. He has coronary disease and diastolic congestive heart failure. Getting supportive care. 4. He has sleep apnea. He is on the ventilator. 5. He has hypertension. His blood pressure meds are on hold. 6. His potassium is doing okay. Subjective Date/time seen: 06/07/22 10:38 Interval history: Patient is on the ventilator. He is sedated. Exam Narrative: WDWN in NAD skin no rash head ncat lungs coarse cor reg no rub abd BS+ nontender and soft ext 1+ edema. Objective Data Vital Signs Vital Signs: Vital Signs - 24 hr 06/06/22 11:32 06/06/22 11:51 06/06/22 12:00 Temperature Pulse Rate 63 67 64 Respiratory Rate 26 H Blood Pressure 106/65 Pulse Oximetry 96 Oxygen Delivery Mechanical Ventilation Fraction of Inspired Oxygen 50 06/06/22 12:00 06/06/22 12:00 06/06/22 12:00 Temperature 36.2 C L Pulse Rate 58 L 66 Respiratory Rate 26 H 26 H Blood Pressure 102/69 Pulse Oximetry 96 98 Oxygen Delivery Mechanical Ventilation Fraction of Inspired Oxygen 70 50 06/06/22 12:05 06/06/22 13:00 06/06/22 14:00 Temperature Pulse Rate 59 L 60 72 Respiratory Rate 26 H 26 H Blood Pressure 102/63 107/69 Pulse Oximetry Oxygen Delivery Fraction of Inspired Oxygen 06/06/22 14:00 06/06/22 14:35 06/06/22 14:43 Temperature 35.7 C L Pulse Rate 71 71 71 Respiratory Rate 26 H 26 H Blood Pressure 107/69 107/69 Pulse Oximetry 96 97 Oxygen Delivery Mechanical Ventilation Fraction of Inspired Oxygen 50 06/06/22 14:43 06/06/22 15:03 06/06/22 15:45 Temperature Pulse Rate 71 70 70 Respiratory Rate 26 H 26 H 26 H Blood Pressure Pulse Oximetry 97 Oxygen Delivery Mechanical Ventilation Fraction of Inspired Oxygen 70 06/06/22 16:00 06/06/22 16:00 06/06/22 16:30 Temperature 36.0 C L Pulse Rate 70 70 Respiratory Rate 26 H 26 H Blood Pressure 101/65 101/65 Pulse Oximetry 98 Oxygen Delivery Fraction of Inspired Oxygen 50 06/06/22 16:36 06/06/22 16:36 06/06/22 16:50 Temperature Pulse Rate 69 69 69 Respiratory Rate 26 H 26 H Blood Pressure Pulse Oximetry Oxygen Delivery Fraction of Inspired Oxygen 06/06/22 17:09 06/06/22 18:24 06/06/22 18:24 Temperature Pulse Rate 64 69 69 Respiratory Rate 26 H 26 H Blood Pressure Pulse Oximetry 98 Oxygen Delivery Mechanical Ventilation Fraction of Inspired Oxygen 40 06/06/22 18:26 06/06/22 18:00 06/06/22 18:00 Temperature 36.4 C Pulse Rate 69 65 75 Respiratory Rate 26 H 26 H Blood Pressure 104/68 Pulse Oximetry 93 Oxygen Delivery Fraction of Inspired Oxygen 06/06/22 18:43 06/06/22 20:08 06/06/22 20:09 Temperature Pulse Rate 59 L 70 Respiratory Rate 26 H 26 H Blood Pressure 98/58 L Pulse Oximetry Oxygen Delivery Fraction of Inspired Oxygen 50 06/06/22 20:09 06/06/22 20:00 06/06/22 20:00 Temperature 36.9 C Pulse Rate 72 72 Respiratory Rate 26 H 26 H Blood Pressure 98/58 L Pulse Oximetry 94 Oxygen Delivery Fraction of Inspired Oxygen 50 06/06/22 20:18 06/06/22 20:23 06/06/22 20:00 Temperature Pulse Rate 72 71 71 Respiratory Rate 26 H 26 H Blood Pressure 98/58 L Pulse Oximetry 94 Oxygen Deliv
[2022-06-07 12:25] LABS: Glucose Point of Care 249 mg/dl (65-105)
--- NOTE | 2022-06-07 13:00 | PM.PNPUL ---
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 The patient returned with shortness of breath. Chest diagnostic studies have shown bilateral infiltrates. chest CT showed bilateral infiltrates consistent with organizing pneumonia following COVID 19 pneumonia. The patient was intubated and transferred to the intensive care unit following worsening of gas exchange. Over the last 24 hours his respiratory status has been unchanged or little improved. A chest x-ray done today showed essentially unchanged bilateral infiltrates, no evidence of pneumothoraces. Plan: decrease IV Solu-Medrol to 60 mg daily starting in a.m.. INR still elevated following discontinuation of warfarin. the patient developed new upper and lower extremity thrombi while on warfarin. Plan is to transition patient to full-dose subQ Lovenox once INR is around 2. (2) Recurrent deep vein thrombosis (DVT): Code(s): I82.409 - Acute embolism and thrombosis of unspecified deep veins of unspecified lower extremity Status: Acute (3) Interstitial lung disease: Code(s): J84.9 - Interstitial pulmonary disease, unspecified Status: Acute (4) Paroxysmal atrial fibrillation: Code(s): I48.0 - Paroxysmal atrial fibrillation Status: Acute (5) Diastolic congestive heart failure: Code(s): I50.30 - Unspecified diastolic (congestive) heart failure Status: Acute (6) PAF (paroxysmal atrial fibrillation): Code(s): I48.0 - Paroxysmal atrial fibrillation Status: Acute (7) Dyspnea: Code(s): R06.00 - Dyspnea, unspecified Status: Acute (8) Chronic anticoagulation: Code(s): 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 Hemodynamically stable, afebrile. No change in bronchial secretions. On lower PEEP today, no hypercapnia on last ABGs. Review of Systems Review of Systems: All system review is negative except as noted in HPI and below Exam Narrative: GENERAL APPEARANCE: Well developed, well nourished, fully sedated on MV SKIN: Inspection of the skin reveals no rashes, ulcerations or petechiae. HEENT: Sclerae anicteric and conjunctivae pink and moist. NECK: Supple. There was no thyroid enlargement.. LUNGS: Auscultation of the lungs clear breath sounds anteriorly, no wheezing CARDIAC: There was a regular rate and rhythm without any murmurs, gallops, rubs. ABDOMEN: Soft with normal bowel sounds. There was no organomegaly. LYMPH NODES: No lymphadenopathy was appreciated in the neck EXTREMITIES: No cyanosis, clubbing. chronic lower leg discoloration. NEUROLOGIC: fully sedated on mechanical ventilation Objective Data Vital Signs Vital Signs: Vital Signs - 24 hr 06/06/22 14:00 06/06/22 14:00 06/06/22 14:35 Temperature 35.7 C L Pulse Rate 72 71 71 Respiratory Rate 26 H 26 H Blood Pressure 107/69 107/69 Pulse Oximetry 96 Oxygen Delivery Fraction of Inspired Oxygen 06/06/22 14:43 06/06/22 14:43 06/06/22 15:03 Temperature Pulse Rate 71 71 70 Respiratory Rate 26 H 26 H Blood Pressure Pulse Oximetry 97 Oxygen Delivery Mechanical Ventilation Fraction of Inspired Oxygen 50 06/06/22 15:45 06/06/22 16:00 06/06/22 16:00 Temperature 36.0 C L Pulse Rate 70 70 Respiratory Rate 26 H 26 H Blood Pressure 101/65 Puls
[2022-06-07] MEDS: MIDAZOLAM 100MG/NS 100ML(*CRX) 100 MG/100 ML BAG IV CONT (15:08)
[2022-06-07 17:02] LABS: Glucose Point of Care 273 mg/dl (65-105)
[2022-06-07] MEDS: FENTANYL 2,500MCG/NS250ML(*CRX 2,500 MCG/250 ML BAG 12.5 MCG IV CONT (18:00)
[2022-06-07 20:30] LABS: Glucose Point of Care 235 mg/dl (65-105)
[2022-06-07 23:46] LABS: Glucose Point of Care 301 mg/dl (65-105)
[2022-06-08] VITALS (38 sets, daily range): BP systolic 109–129; BP diastolic 67–81; PULSE 60–95; RESP 20–31; TEMP 36.8–37.6; O2SAT 92–100
[2022-06-08] MEDS: IPRATROPIUM BR 0.02% INH SOLN 0.5 MG/2.5 ML VIAL INHALATION ×4 (02:29→19:10)
[2022-06-08] MEDS: ALBUTEROL SULFATE NEB 2.5 MG/3 ML INH INHALATION ×4 (02:29→19:10)
[2022-06-08 04:39] LABS: Basophils Percent Auto 0.4 % (0.2-1.2); Hematocrit 36.1 % (42.0-52.0); Hemoglobin 11.2 g/dL (14.0-18.0); Immature Granulocyte Absolute 0.22 K/mm3 (0.00-0.031); Immature Granulocyte Percent A 4.3 % (0-0.5); Lymphocytes Absolute Auto 0.43 K/mm3 (0.9-3.2); Lymphocytes Percent Auto 8.4 % (18.3-44.2); Mean Corpuscular Hemoglobin 29.9 pg (26-34); Mean Corpuscular Volume 96.5 fl (80-100); Mean Platelet Volume 11.2 fl (7.4-10.4); Monocytes Absolute Auto 0.7 K/mm3 (0.1-0.6); Monocytes Percent Auto 12.8 % (2.6-8.5); Neutrophils Absolute Auto 3.8 K/mm3 (1.3-6.7); Neutrophils Percent Auto 74.1 % (45.5-73.1); Nucleated Red Blood Cells Perc 0.8 % (0.0-0.2); Platelet Count Result 166 k/mm3 (150-375); Red Blood Count 3.74 M/mm3 (4.6-6.20); Red Cell Distribution Width 13.8 % (11.5-14.5); White Blood Count 5.1 K/mm3 (4.5-10.0)
[2022-06-08 04:50] LABS: INR 2.1; Prothrombin Time 22.5 Seconds (11.1-14.7)
[2022-06-08 04:51] LABS: Partial Thromboplastin Time 27.6 SECONDS (22.3-36.8)
[2022-06-08] MEDS: INSULIN ASPART (*BKC) 100 UNITS/ML SUB-Q ×5 (04:51→20:59)
[2022-06-08 04:54] LABS: Alanine Aminotransferase 19 U/L (6-50); Albumin Level 2.3 g/dL (3.5-5.1); Alkaline Phosphatase 69 U/L (38-126); Anion Gap 2 mmol/L (8-16); Aspartate Amino Transferase 17 U/L (17-59); Bilirubin,Total 0.6 mg/dL (0.2-1.3); Blood Urea Nitrogen 71 mg/dL (9-20); Calcium 7.7 mg/dL (8.4-10.2); Carbon Dioxide 35 mmol/L (22-30); Chloride 104 mmol/L (98-107); Estimated CRCL calculation 50 ml/min; Estimated Glomerular Filt Rate 54; Glucose 210 mg/dL (65-110); Magnesium 2.9 mg/dL (1.6-2.3); Potassium 4.9 mmol/L (3.4-5.0); Sodium 141 mmol/L (137-145)
[2022-06-08 05:05] LABS: Glucose Point of Care 219 mg/dl (65-105)
[2022-06-08] MEDS: SODIUM CHLORIDE 0.9% IV 1,000 ML 75 ML IV CONT (05:42)
[2022-06-08 06:08] LABS: Alveolar/Arterial O2 Gradient 235.2 mmHg; Base Excess ABG 3.4 mEq/l (+/-2.0); Carboxyhemoglobin 0.3 % THb (0-2.0); Fractional Inspired Oxygen 50 %; Methemoglobin ABG 0.4 %THb (0-1.5); Oxygen Content ABG 15.6 %vol (16.0-22.0); Oxygen Saturation ABG 89.6 % (95.0-100.0); Oxyhemoglobin 90.1 % THb (90.0-100.0); PCO2 ABG 54.5 mmHg (35.0-45.0); Reduced Hemoglobin 9.2 %THb (0-5.0); Total Hemoglobin 12.3 g/dL (12.0-18.0); pH ABG 7.358 (7.350-7.450)
[2022-06-08 06:09] LABS: Device VENTILATOR; Modified Allen's Test Pass; Site Drawn LEFT RADIAL
[2022-06-08 06:10] LABS: Arterial Blood Gas PEEP 5 cmH2O; Arterial Blood Gas Vent Mode CMV; Arterial Blood Gas Ventilator rate 26 /MIN
[2022-06-08 06:11] LABS: Arterial Blood Gas Tidal Volume 400 ml
[2022-06-08] MEDS: methylPREDNISolone SOD SUCC 125 MG VIAL 60 MG IV PUSH (09:07)
[2022-06-08] MEDS: INSULIN GLARGINE (*BKC) 100 UNITS/ML 10 UNITS SUB-Q (09:08)
[2022-06-08] MEDS: polyethylene glycoL 3350 17 GM POWD.PACK PO (09:10)
[2022-06-08] MEDS: PANTOPRAZOLE SODIUM IV 40 MG VIAL IV PUSH (09:10)
[2022-06-08] MEDS: ENOXAPARIN 100 MG/ML SYRINGE 95 MG SUB-Q ×2 (09:12→21:00)
[2022-06-08] MEDS: PRAVASTATIN SODIUM 10 MG TABLET BY MOUTH (09:13)
[2022-06-08] MEDS: MINERAL OIL/WHITE PETROLATUM OINTMENT 1 APPLIC EACH EYE ×2 (09:13→21:00)
[2022-06-08] MEDS: SODIUM PHOSPHATE 20 MM in DEXTROSE 5% IN WATER 250 ML 50 MM IVPB (09:14)
[2022-06-08 09:23] LABS: Glucose Point of Care 238 mg/dl (65-105)
--- NOTE | 2022-06-08 09:42 | WPDINTPN ---
Progress Note: A&P Assessment and Plan (1) Acute respiratory failure with hypoxia: Code(s): J96.01 - Acute respiratory failure with hypoxia Status: Acute Assessment and Plan: Patient had recent COVID infection and was tested positive on 05/08/2022. Was treated with dexamethasone and baricitinib an outside hospital, ([facility] Patient was discharged home on 6 L of oxygen. He has been having worsening shortness of breath since discharge from the hospital on 11/23/2021. -on 06/01 patient presented to the ED with hypoxic respiratory failure, - CT scan of the chest from 06/03/2022 showed diffuse bilateral lung disease with dependent predominance, n the acute setting differential would include pneumonia including reported history of COVID pneumonia or moderate pulmonary edema. Differential would include less likely drug-induced pneumonitis and chronic eosinophilic pneumonia. Cardiomegaly. Mild likely reactive mediastinal lymphadenopathy -pulmonology following and feel it is more interstitial lung disease/organizing pneumonia post COVID. -continue Solu-Medrol per pulmonology -patient was intubated on 06/04/2022 worsening shortness of breath, impending respiratory failure, significant tachypnea, hypoxia, using accessory muscles. - 06/06 HRCT IMPRESSION: 1. Small bilateral pneumothoraces. 2. Pneumomediastinum. 3. Diffuse lung disease with volume loss when compared to 06/03/22, consistent with pulmonary edema versus pneumonia versus acute respiratory distress syndrome (ARDS). -currently on CMV mode of ventilation, tidal volume 400 (5 mL/kilogram), peep of 5, 50% FiO2 ., will increase PEEP to 8, allow permissive hypercapnia -hest x-ray reviewed - ??Increased bilateral pulmonary infiltrates since 06/07/2022, no pneumothorax -patient is sedated with fentanyl and Versed infusion, patient is dyssynchronous with the ventilator, have asked the bedside RN to increase the sedation. -may need to restart neuromuscular blockade -continue Levaquin (#8) per pulmonology, will discuss with pulmonology regarding discontinuing Levaquin (2) Venous thrombosis of lower extremity: Code(s): I82.90 - Acute embolism and thrombosis of unspecified vein Status: Acute Assessment and Plan: Patient has been on chronic warfarin, INR 3.5 this morning -per community service aide will transition to Lovenox from possible failed warfarin therapy once INR is 2-2.5 -will start therapeutic Lovenox -06/02/2022 Venous Dopplers showed Both above and [id number] deep venous thrombosis at both the right and left lower limbs AND Thrombosis of the bilateral cephalic veins, throughout the left upper arm and forearm on the left and more distally in the right forearm on the right. (3) Venous thrombosis of upper extremity: Code(s): I82.609 - Acute embolism and thrombosis of unspecified veins of unspecified upper extremity Status: Acute Assessment and Plan: As above (4) Thrombocytopenia: Code(s): D69.6 - Thrombocytopenia, unspecified Status: Acute Assessment and Plan: Thrombocytopenia likely related to sepsis, chronic warfarin therapy -hemoglobin has been stable -platelet counts is improving -will continue to monitor for bleeding (5) Paroxysmal atrial fibrillation: Code(s): I48.0 - Paroxysmal atrial fibrillation Status: Acute Assessment and Plan: Patient with history of paroxysmal AFib being followed by Cardiology -patient was in a amiodarone which was maintaining sinus rhythm and the patient, -patient was on warfarin with melina hematuria, warfarin currently on hold, will transition to therapeutic heparin or Lovenox once INR is 2.0-2.5. -amiodarone can also cause pulmonary toxicity/interstitial pneumonitis, -amiodarone was stopped for that reason -metoprolol was discontinued (6) Diastolic congestive heart failure: Code(s): I50.30 - Unspecified diastolic (congestive) heart failure Status
--- NOTE | 2022-06-08 10:21 | PM.PNNEP ---
Progress Note: A&P Additional Plan 1. Osmel has acute kidney injury. He has had an ultrasound of the kidneys which was normal. He had urine electrolytes. Urine sodium is 22 and urine creatinine is high at 123. Fractional excretion of sodium is low consistent with pre renal azotemia. Urinalysis shows trace protein and a bland sediment. CK is not down. Most likely the rise in creatinine is due to pre renal azotemia from low blood pressure and volume depletion. He is getting IV fluids. His creatinine has repeat turned to normal. Will stop IV fluids since he is tolerating tube feedings. I will sign off the case. Discussed with Dr Valdez. 2. The patient has severe COPD. He is getting pulmonary support. 3. He has coronary disease and diastolic congestive heart failure. Getting supportive care. 4. He has sleep apnea. He is on the ventilator. 5. He has hypertension. His blood pressure meds are on hold. 6. His potassium is doing okay. Subjective Date/time seen: 06/08/22 10:21 Interval history: Patient is on the ventilator. He is sedated. He cannot give a history Exam Narrative: WDWN in NAD skin no rash or subQ nodules head ncat lungs coarse cor reg no rub or gallop abd BS+ nontender and soft ext 1+ edema. Objective Data Vital Signs Vital Signs: Vital Signs - 24 hr 06/07/22 11:59 06/07/22 12:00 06/07/22 12:00 Temperature Pulse Rate 64 67 Respiratory Rate 27 H Blood Pressure Pulse Oximetry 94 96 Oxygen Delivery Mechanical Ventilation Mechanical Ventilation Fraction of Inspired Oxygen 50 50 50 06/07/22 11:04 06/07/22 12:04 06/07/22 12:50 Temperature 36.3 C L 36.6 C Pulse Rate 66 64 67 Respiratory Rate 26 H 26 H Blood Pressure Pulse Oximetry 92 93 Oxygen Delivery Fraction of Inspired Oxygen 06/07/22 14:00 06/07/22 14:00 06/07/22 14:35 Temperature Pulse Rate 69 69 65 Respiratory Rate 26 H 27 H Blood Pressure 94/59 L Pulse Oximetry 92 Oxygen Delivery Fraction of Inspired Oxygen 06/07/22 14:37 06/07/22 14:59 06/07/22 15:08 Temperature Pulse Rate 69 64 66 Respiratory Rate 21 H 26 H Blood Pressure Pulse Oximetry 94 Oxygen Delivery Mechanical Ventilation Fraction of Inspired Oxygen 50 06/07/22 15:08 06/07/22 15:53 06/07/22 15:54 Temperature Pulse Rate 66 71 Respiratory Rate 26 H 27 H Blood Pressure Pulse Oximetry 94 Oxygen Delivery Mechanical Ventilation Fraction of Inspired Oxygen 50 50 06/07/22 16:14 06/07/22 16:00 06/07/22 16:00 Temperature 37.2 C Pulse Rate 71 70 71 Respiratory Rate 29 H 28 H Blood Pressure 109/65 Pulse Oximetry 93 Oxygen Delivery Fraction of Inspired Oxygen 06/07/22 17:39 06/07/22 17:54 06/07/22 18:00 Temperature Pulse Rate 74 69 69 Respiratory Rate 27 H 27 H Blood Pressure Pulse Oximetry 93 Oxygen Delivery Mechanical Ventilation Fraction of Inspired Oxygen 50 06/07/22 18:00 06/07/22 18:00 06/07/22 20:00 Temperature 37.3 C 37.5 C Pulse Rate 73 73 76 Respiratory Rate 27 H 27 H Blood Pressure 113/67 117/70 Pulse Oximetry 94 95 Oxygen Delivery Fraction of Inspired Oxygen 06/07/22 20:00 06/07/22 20:07 06/07/22 20:07 Temperature Pulse Rate 76 76 Respiratory Rate 27 H 27 H Blood Pressure Pulse Oximetry Oxygen Delivery Fraction of Inspired Oxygen 50 06/07/22 20:00 06/07/22 20:40 06/07/22 20:40 Temperature Pulse Rate 79 79 Respiratory Rate 28 H Blood Pressure Pulse Oximetry 95 Oxygen Delivery Mechanical Ventilation Mechanical Ventilation Fraction of Inspired Oxygen 50 50 06/07/22 20:00 06/07/22 22:00 06/07/22 22:00 Temperature 37.6 C Pulse Rate 76 75 75 Respiratory Rate 27 H Blood Pressure 109/68 Pulse Oximetry 97 Oxygen Delivery Fraction of Inspired Oxygen 06/07/22 23:34 06/07/22 23:36 06/08/22 00:00 Temperature Pulse Rate 81 81 65 Respiratory
[2022-06-08] MEDS: INSULIN GLARGINE (*BKC) 100 UNITS/ML SUB-Q (10:54)
[2022-06-08] MEDS: FENTANYL 2,500MCG/NS250ML(*CRX 2,500 MCG/250 ML BAG 15 MCG IV CONT (10:54)
--- NOTE | 2022-06-08 11:41 | PM.PNPUL ---
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 The patient returned with shortness of breath. Chest diagnostic studies have shown bilateral infiltrates. chest CT showed bilateral infiltrates consistent with organizing pneumonia following COVID 19 pneumonia. The patient was intubated and transferred to the intensive care unit following worsening of gas exchange. Over the last 24 hours his respiratory status has been unchanged or little improved. A chest x-ray done today showed essentially unchanged bilateral infiltrates, no evidence of pneumothoraces. Plan: Will discontinue levofloxacin and repeat sputum culture and couple of days, continue with IV Solu-Medrol 60 mg daily. Continue with full does subcu Lovenox for a new DVTs. (2) Recurrent deep vein thrombosis (DVT): Code(s): I82.409 - Acute embolism and thrombosis of unspecified deep veins of unspecified lower extremity Status: Acute (3) Interstitial lung disease: Code(s): J84.9 - Interstitial pulmonary disease, unspecified Status: Acute (4) Paroxysmal atrial fibrillation: Code(s): I48.0 - Paroxysmal atrial fibrillation Status: Acute (5) Diastolic congestive heart failure: Code(s): I50.30 - Unspecified diastolic (congestive) heart failure Status: Acute (6) PAF (paroxysmal atrial fibrillation): Code(s): I48.0 - Paroxysmal atrial fibrillation Status: Acute (7) Dyspnea: Code(s): R06.00 - Dyspnea, unspecified Status: Acute (8) Chronic anticoagulation: Code(s): Z79.01 - [facility] (current) use of anticoagulants Status: Acute Subjective Date/time seen: 06/08/22 11:41 Respiratory status essentially unchanged. The patient remaining fully sedated on CMV support. Started on subcu Lovenox for new DVTs. He is still on levofloxacin. Review of Systems Review of Systems: ROS unobtainable: Yes unobtainable due to endotracheal tube and unobtainable due to medical condition Exam Narrative: GENERAL APPEARANCE: Well developed, well nourished, fully sedated on MV SKIN: Inspection of the skin reveals no rashes, ulcerations or petechiae. HEENT: Sclerae anicteric and conjunctivae pink and moist. NECK: Supple. There was no thyroid enlargement.. LUNGS: Auscultation of the lungs clear breath sounds anteriorly, no wheezing CARDIAC: There was a regular rate and rhythm without any murmurs, gallops, rubs. ABDOMEN: Soft with normal bowel sounds. There was no organomegaly. LYMPH NODES: No lymphadenopathy was appreciated in the neck EXTREMITIES: No cyanosis, clubbing. chronic lower leg discoloration. NEUROLOGIC: fully sedated on mechanical ventilation Objective Data Vital Signs Vital Signs: Vital Signs - 24 hr 06/07/22 11:59 06/07/22 12:00 06/07/22 12:00 Temperature Pulse Rate 64 67 Respiratory Rate 27 H Blood Pressure Pulse Oximetry 94 96 Oxygen Delivery Mechanical Ventilation Mechanical Ventilation Fraction of Inspired Oxygen 50 50 50 06/07/22 12:04 06/07/22 12:50 06/07/22 14:00 Temperature 36.6 C Pulse Rate 64 67 69 Respiratory Rate 26 H Blood Pressure Pulse Oximetry 93 Oxygen Delivery Fraction of Inspired Oxygen 06/07/22 14:00 06/07/22 14:35 06/07/22 14:37 Temperature Pulse Rate 69 65 69 Respiratory Rate 26 H 27 H Blood Pressure 94/59 L Pulse Oximetry 92 94 Oxygen Delivery Mechanical Ventilation Fraction of Inspired Ox
[2022-06-08] MEDS: MIDAZOLAM 100MG/NS 100ML(*CRX) 100 MG/100 ML BAG 6 MG IV CONT (13:15)
[2022-06-08 13:21] LABS: Glucose Point of Care 297 mg/dl (65-105)
[2022-06-08 18:07] LABS: Glucose Point of Care 324 mg/dl (65-105)
[2022-06-08 21:20] LABS: Glucose Point of Care 247 mg/dl (65-105)
[2022-06-09] VITALS (39 sets, daily range): BP systolic 113–144; BP diastolic 63–81; PULSE 69–122; RESP 23–32; TEMP 36.9–37.7; O2SAT 93–99
[2022-06-09] MEDS: INSULIN ASPART (*BKC) 100 UNITS/ML SUB-Q ×5 (00:23→16:49)
[2022-06-09 00:36] LABS: Glucose Point of Care 254 mg/dl (65-105)
[2022-06-09] MEDS: IPRATROPIUM BR 0.02% INH SOLN 0.5 MG/2.5 ML VIAL INHALATION ×4 (03:03→20:46)
[2022-06-09] MEDS: ALBUTEROL SULFATE NEB 2.5 MG/3 ML INH INHALATION ×4 (03:03→20:46)
[2022-06-09] MEDS: FENTANYL 2,500MCG/NS250ML(*CRX 2,500 MCG/250 ML BAG 15 MCG IV CONT ×2 (03:39→19:50)
[2022-06-09 03:50] LABS: Glucose Point of Care 218 mg/dl (65-105)
[2022-06-09 04:41] LABS: Basophils Percent Auto 0.7 % (0.2-1.2); Hematocrit 38.1 % (42.0-52.0); Hemoglobin 11.5 g/dL (14.0-18.0); Immature Granulocyte Absolute 0.32 K/mm3 (0.00-0.031); Immature Granulocyte Percent A 5.4 % (0-0.5); Lymphocytes Absolute Auto 0.97 K/mm3 (0.9-3.2); Lymphocytes Percent Auto 16.3 % (18.3-44.2); Mean Corpuscular HGB Conc 30.2 g/dl (32-36); Mean Corpuscular Hemoglobin 29.9 pg (26-34); Mean Corpuscular Volume 99.2 fl (80-100); Mean Platelet Volume 11.3 fl (7.4-10.4); Monocytes Absolute Auto 0.6 K/mm3 (0.1-0.6); Monocytes Percent Auto 9.7 % (2.6-8.5); Neutrophils Absolute Auto 4.1 K/mm3 (1.3-6.7); Neutrophils Percent Auto 67.9 % (45.5-73.1); Nucleated Red Blood Cells Absolute Auto 0.1 K/mm3 (0.0-0.012); Nucleated Red Blood Cells Perc 1.2 % (0.0-0.2); Platelet Count Result 196 k/mm3 (150-375); Red Blood Count 3.84 M/mm3 (4.6-6.20)
[2022-06-09 04:52] LABS: INR 1.8; Prothrombin Time 20.1 Seconds (11.1-14.7)
[2022-06-09 04:53] LABS: Partial Thromboplastin Time 35.9 SECONDS (22.3-36.8)
[2022-06-09 05:16] LABS: Alanine Aminotransferase 20 U/L (6-50); Albumin Level 2.6 g/dL (3.5-5.1); Alkaline Phosphatase 79 U/L (38-126); Anion Gap 4 mmol/L (8-16); Aspartate Amino Transferase 21 U/L (17-59); Bilirubin,Total 0.8 mg/dL (0.2-1.3); Blood Urea Nitrogen 58 mg/dL (9-20); Calcium 7.7 mg/dL (8.4-10.2); Carbon Dioxide 35 mmol/L (22-30); Chloride 106 mmol/L (98-107); Estimated CRCL calculation 64 ml/min; Estimated Glomerular Filt Rate > 60; Glucose 225 mg/dL (65-110); Magnesium 2.6 mg/dL (1.6-2.3); Potassium 5.2 mmol/L (3.4-5.0); Sodium 145 mmol/L (137-145)
[2022-06-09] MEDS: MIDAZOLAM 100MG/NS 100ML(*CRX) 100 MG/100 ML BAG 6 MG IV CONT (05:17)
[2022-06-09 05:29] LABS: Alveolar/Arterial O2 Gradient 164.2 mmHg; Base Excess ABG 6.2 mEq/l (+/-2.0); Carboxyhemoglobin 0.5 % THb (0-2.0); Fractional Inspired Oxygen 40 %; HCO3 ABG 32.5 mEq/l (22.0-26.0); Methemoglobin ABG 0.3 %THb (0-1.5); Oxygen Content ABG 15.8 %vol (16.0-22.0); Oxygen Saturation ABG 89.9 % (95.0-100.0); Oxyhemoglobin 90.5 % THb (90.0-100.0); PCO2 ABG 54.1 mmHg (35.0-45.0); PO2 ABG 58.8 mmHg (80.0-100.0); PO2 FiO2 Ratio Arterial Blood 1.47 %; Reduced Hemoglobin 8.7 %THb (0-5.0); Total Hemoglobin 12.4 g/dL (12.0-18.0); pH ABG 7.396 (7.350-7.450)
[2022-06-09 05:30] LABS: Arterial Blood Gas PEEP 8 cmH2O; Arterial Blood Gas Tidal Volume 400 ml; Arterial Blood Gas Vent Mode CMV; Arterial Blood Gas Ventilator rate 26 /MIN; Device VENTILATOR; Modified Allen's Test Pass; Site Drawn RIGHT RADIAL
[2022-06-09 07:18] LABS: Glucose Point of Care 219 mg/dl (65-105)
[2022-06-09] MEDS: ENOXAPARIN 100 MG/ML SYRINGE 95 MG SUB-Q ×2 (08:56→20:04)
[2022-06-09] MEDS: methylPREDNISolone SOD SUCC 125 MG VIAL 60 MG IV PUSH (08:56)
[2022-06-09] MEDS: PANTOPRAZOLE SODIUM IV 40 MG VIAL IV PUSH (08:57)
[2022-06-09] MEDS: MINERAL OIL/WHITE PETROLATUM OINTMENT 1 APPLIC EACH EYE ×2 (08:57→20:04)
[2022-06-09] MEDS: PRAVASTATIN SODIUM 10 MG TABLET BY MOUTH (08:57)
[2022-06-09] MEDS: polyethylene glycoL 3350 17 GM POWD.PACK PO (08:57)
[2022-06-09] MEDS: INSULIN GLARGINE (*BKC) 100 UNITS/ML 30 UNITS SUB-Q (08:58)
--- NOTE | 2022-06-09 08:59 | PM.PNPUL ---
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 The patient returned with shortness of breath. Chest diagnostic studies have shown bilateral infiltrates. chest CT showed bilateral infiltrates consistent with organizing pneumonia following COVID 19 pneumonia. The patient was intubated and transferred to the intensive care unit following worsening of gas exchange. Over the last 24 hours his respiratory status has been unchanged or little improved. A chest x-ray done today showed essentially unchanged bilateral infiltrates, there was evidence of pneumomediastinum. Also questionable left lower lobe infiltrate. Overall respiratory status unchanged over the last 24 hours. Plan: sputum culture ordered, check CRP continue with IV Solu-Medrol 60 mg daily. Continue with full does subcu Lovenox for a new DVTs. (2) Recurrent deep vein thrombosis (DVT): Code(s): I82.409 - Acute embolism and thrombosis of unspecified deep veins of unspecified lower extremity Status: Acute (3) Interstitial lung disease: Code(s): J84.9 - Interstitial pulmonary disease, unspecified Status: Acute (4) Paroxysmal atrial fibrillation: Code(s): I48.0 - Paroxysmal atrial fibrillation Status: Acute (5) Diastolic congestive heart failure: Code(s): I50.30 - Unspecified diastolic (congestive) heart failure Status: Acute (6) PAF (paroxysmal atrial fibrillation): Code(s): I48.0 - Paroxysmal atrial fibrillation Status: Acute (7) Dyspnea: Code(s): R06.00 - Dyspnea, unspecified Status: Acute (8) Chronic anticoagulation: Code(s): 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 No change in bronchial secretions. Afebrile. On full-dose Lovenox for DVT, current Solu-Medrol dose 60 mg IV daily. Review of Systems Review of Systems: ROS unobtainable: Yes unobtainable due to endotracheal tube and unobtainable due to medical condition Exam Narrative: GENERAL APPEARANCE: Well developed, well nourished, fully sedated on MV SKIN: Inspection of the skin reveals no rashes, ulcerations or petechiae. HEENT: Sclerae anicteric and conjunctivae pink and moist. NECK: Supple. There was no thyroid enlargement.. LUNGS: Auscultation of the lungs clear breath sounds anteriorly, no wheezing CARDIAC: There was a regular rate and rhythm without any murmurs, gallops, rubs. ABDOMEN: Soft with normal bowel sounds. There was no organomegaly. LYMPH NODES: No lymphadenopathy was appreciated in the neck EXTREMITIES: No cyanosis, clubbing. chronic lower leg discoloration. NEUROLOGIC: fully sedated on mechanical ventilation Objective Data Vital Signs Vital Signs: Vital Signs - 24 hr 06/08/22 09:19 06/08/22 10:54 06/08/22 10:54 Temperature Pulse Rate 78 70 62 Respiratory Rate 29 H 27 H 27 H Blood Pressure Pulse Oximetry Oxygen Delivery Fraction of Inspired Oxygen 06/08/22 11:11 06/08/22 10:00 06/08/22 10:00 Temperature 36.8 C Pulse Rate 74 72 70 Respiratory Rate 26 H Blood Pressure 125/81 Pulse Oximetry 96 97 Oxygen Delivery Mechanical Ventilation Fraction
[2022-06-09] MEDS: SODIUM ZIRCONIUM CYCLOSILICATE 10 GM POWD.PACK PO (11:34)
--- NOTE | 2022-06-09 11:57 | PCFNICU ---
ICU Rounding Note: Pt current nutrition is Glucerna 1.2 at 50 ml/hr over 22 hours. Last recorded weight is 93.3 kg, up from 91.8 kg on admit. Bowel Motility: No Bm reported. Miralax given. Labs Reviewed:Glu 225, BUN 58, K 5.2, Hgb 11.5, Hct 38.1, Alb 2.6 Meds Noted: Fentanyl, Versed, Lasix, Protonix, Lovenox, Lantus Skin:WNL Additional Notes: Patient remains on mechanical vent and tube feedings of Glucerna at 40 ml/hr with plans to increasing to goal rate at 75 ml/hr. Goal rate will provide 1980 kcals/99 gms protein. Meeting 92% kcal needs and 99% protein needs. Free water flush 30 ml q 4 hours. Agree with diet orders. Following daily in ICU rounds. Monitor tube feeding, wt, labs every Thursday and Thursday.
--- NOTE | 2022-06-09 12:19 | WPDINTPN ---
Progress Note: A&P Assessment and Plan (1) Acute respiratory failure with hypoxia: Code(s): J96.01 - Acute respiratory failure with hypoxia Status: Acute Assessment and Plan: Patient had recent COVID infection and was tested positive on 05/08/2022. Was treated with dexamethasone and baricitinib an [facility] Patient was discharged home on 6 L of oxygen. He has been having worsening shortness of breath since discharge from the hospital on 11/23/2021. -on 06/01 patient presented to the ED with hypoxic respiratory failure, - CT scan of the chest from 06/03/2022 showed diffuse bilateral lung disease with dependent predominance, n the acute setting differential would include pneumonia including reported history of COVID pneumonia or moderate pulmonary edema. Differential would include less likely drug-induced pneumonitis and chronic eosinophilic pneumonia. Cardiomegaly. Mild likely reactive mediastinal lymphadenopathy -pulmonology following and feel it is more interstitial lung disease/organizing pneumonia post COVID. -continue Solu-Medrol per pulmonology -patient was intubated on 06/04/2022 worsening shortness of breath, impending respiratory failure, significant tachypnea, hypoxia, using accessory muscles. - 06/06 HRCT IMPRESSION: 1. Small bilateral pneumothoraces. 2. Pneumomediastinum. 3. Diffuse lung disease with volume loss when compared to 06/03/22, consistent with pulmonary edema versus pneumonia versus acute respiratory distress syndrome (ARDS). -currently on CMV mode of ventilation, tidal volume 400 (5 mL/kilogram), peep of 8, 40% FiO2. allow permissive hypercapnia -06/09 chest x-ray reviewed - ?Diffuse lung disease with improvement in left upper lobe, consistent with pulmonary edema versus pneumonia versus acute respiratory distress syndrome (ARDS).. Persistent pneumomediastinum.. Cardiomegaly. -patient is sedated with fentanyl and Versed infusion, -off neuromuscular blockade since 06/07/2022 -status post 7 days of Levaquin (2) Venous thrombosis of lower extremity: Code(s): I82.90 - Acute embolism and thrombosis of unspecified vein Status: Acute Assessment and Plan: Patient has been on chronic warfarin, INR 3.5 this morning -per consumer insight manager will transition to Lovenox from possible failed warfarin therapy once INR is 2-2.5 -started therapeutic Lovenox 06/08/2022 -06/02/2022 Venous Dopplers showed Both above and [id number] deep venous thrombosis at both the right and left lower limbs AND Thrombosis of the bilateral cephalic veins, throughout the left upper arm and forearm on the left and more distally in the right forearm on the right. (3) Venous thrombosis of upper extremity: Code(s): I82.609 - Acute embolism and thrombosis of unspecified veins of unspecified upper extremity Status: Acute Assessment and Plan: As above (4) Thrombocytopenia: Code(s): D69.6 - Thrombocytopenia, unspecified Status: Acute Assessment and Plan: Resolved -will continue to monitor as patient is on therapeutic Lovenox (5) Paroxysmal atrial fibrillation: Code(s): I48.0 - Paroxysmal atrial fibrillation Status: Acute Assessment and Plan: Patient with history of paroxysmal AFib being followed by Cardiology -patient was in a amiodarone which was maintaining sinus rhythm and the patient, -patient was on warfarin with melina hematuria, warfarin currently on hold, will transition to therapeutic heparin or Lovenox once INR is 2.0-2.5. -amiodarone can also cause pulmonary toxicity/interstitial pneumonitis, -amiodarone was stopped for that reason -metoprolol was discontinued (6) Diastolic congestive heart failure: Code(s): I50.30 - Unspecified diastolic (congestive) heart failure Status: Acute Assessment and Plan: Patient currently seems to be hypovolemic, was diuresed by Cardiology but currently diuresis on hold -will cont
[2022-06-09 14:37] LABS: Chloride Rand Ur 21 mmol/L (32-290); Chloride/Creatinine Rand Ur 18 (23-275); Creatinine Random Urine 118 mg/dL (20-320)
[2022-06-09 14:41] LABS: Glucose Point of Care 232 mg/dl (65-105)
[2022-06-09 17:25] LABS: Glucose Point of Care 226 mg/dl (65-105)
[2022-06-09] MEDS: MIDAZOLAM 100MG/NS 100ML(*CRX) 100 MG/100 ML BAG 7 MG IV CONT (19:52)
[2022-06-09 20:22] LABS: Glucose Point of Care 182 mg/dl (65-105)
--- NOTE | 2022-06-10 19:19 | PM.TDS ---
Transfer Discharge Sum: Prov Provider Date of admission: 05/31/22 17:05 Primary care physician: Josep Sahu MD Admitting clinician: Josep Qureshi MD Consults: 05/31/22 Consult to Physician Routine Comment: Consulting Provider: Melchor Beyer Reason for consultation: CHF Has provider been notified: Yes Consult to Physician Routine Comment: Consulting Provider: Josep Levin sterile supervisor/MD group to consult: [employer] transition coach Reason for consultation: hypoxia, pulmonary infiltrates, recent COVID Has provider been notified: Yes 06/02/22 Consult to Physician Routine Comment: Called office and notified them of consult Consulting Provider: Cristiano Winter sterile supervisor/MD group to consult: urology Reason for consultation: urinary retention, pain w catheter, hematuria Has provider been notified: Yes 06/04/22 Consult to Physician Routine Comment: Consulting Provider: Valerie Valdez Reason for consultation: icu transfer Has provider been notified: Yes 06/06/22 07:38 Consult to Physician Routine Comment: spoke with exchange @[id number](,) Consulting Provider: Sergio Faulkner sterile supervisor/MD group to consult: Nephrology Reason for consultation: RITA, post covid Has provider been notified: Yes DS: Admitting Diagnosis Discharge Date 06/09/22 Admitting Diagnosis Respiratory failure DS: Discharge Diagnosis Discharge Diagnosis (1) Acute respiratory failure with hypoxia: Code(s): J96.01 - Acute respiratory failure with hypoxia Status: Acute Assessment and Plan: Patient had recent COVID infection and was tested positive on 05/08/2022. Was treated with dexamethasone and baricitinib an outside hospital, ([facility]). Patient was discharged home on 6 L of oxygen. He has been having worsening shortness of breath since discharge from the hospital on 11/23/2021. -on 06/01 patient presented to the ED with hypoxic respiratory failure, - CT scan of the chest from 06/03/2022 showed diffuse bilateral lung disease with dependent predominance, n the acute setting differential would include pneumonia including reported history of COVID pneumonia or moderate pulmonary edema. Differential would include less likely drug-induced pneumonitis and chronic eosinophilic pneumonia. Cardiomegaly. Mild likely reactive mediastinal lymphadenopathy -pulmonology following and feel it is more interstitial lung disease/organizing pneumonia post COVID. -continue Solu-Medrol per pulmonology -patient was intubated on 06/04/2022 worsening shortness of breath, impending respiratory failure, significant tachypnea, hypoxia, using accessory muscles. - 06/06 HRCT IMPRESSION: 1. Small bilateral pneumothoraces. 2. Pneumomediastinum. 3. Diffuse lung disease with volume loss when compared to 06/03/22, consistent with pulmonary edema versus pneumonia versus acute respiratory distress syndrome (ARDS). -currently on CMV mode of ventilation, tidal volume 400 (5 mL/kilogram), peep of 8, 40% FiO2. allow permissive hypercapnia -06/09 chest x-ray reviewed - ?Diffuse lung disease with improvement in left upper lobe, consistent with pulmonary edema versus pneumonia versus acute respiratory distress syndrome (ARDS).. Persistent pneumomediastinum.. Cardiomegaly. -patient is sedated with fentanyl and Versed infusion, -off neuromuscular blockade since 06/07/2022 -status post 7 days of Levaquin (2) Venous thrombosis of lower extremity: Code(s): I82.90 - Acute embolism and thrombosis of unspecified vein Status: Acute Assessment and Plan: Patient has been on chronic warfarin, INR 3.5 this morning -per early breastfeeding care specialist will transition to Lovenox from possible failed warfarin therapy once INR is 2-2.5 -started therapeutic Lovenox 06/08/2022 -06/02/2022 Venous Dopplers showed Both above and [id number] deep venous thrombosis at both the right and left lower limbs AND Thrombosis of the bilateral
== END 2022-06-09 23:30 | disposition short-term general hospital (02) | DRG 208 ==
LOC: ANHED 16:36 → ANHIMU 17:36 → ANHICU 06-04 08:41
PROVIDERS: Internal Medicine Pulmonary Disease; Physician Assistant; Student in an Organized Health Care Education/Training Program; Admitting Provider Chiropractor; Emergency Provider Emergency Medicine; PCP Family Medicine; Visit Provider Internal Medicine
DX: J96.01 Acute respiratory failure with hypoxia (principal); I47.1 Supraventricular tachycardia; I82.613 Acute embolism and thrombosis of superficial veins of upper extremity, bilateral; I82.413 Acute embolism and thrombosis of femoral vein, bilateral; I82.451 Acute embolism and thrombosis of right peroneal vein; I82.443 Acute embolism and thrombosis of tibial vein, bilateral; I82.813 Embolism and thrombosis of superficial veins of lower extremities, bilateral; I50.32 Chronic diastolic (congestive) heart failure; N17.9 Acute kidney failure, unspecified; J44.0 Chronic obstructive pulmonary disease with (acute) lower respiratory infection; J84.178 Other interstitial pulmonary diseases with fibrosis in diseases classified elsewhere; U09.9 Post COVID-19 condition, unspecified; I11.0 Hypertensive heart disease with heart failure; I48.0 Paroxysmal atrial fibrillation; M19.90 Unspecified osteoarthritis, unspecified site; N40.1 Benign prostatic hyperplasia with lower urinary tract symptoms; R33.9 Retention of urine, unspecified; R31.0 Gross hematuria; G47.33 Obstructive sleep apnea (adult) (pediatric); E07.9 Disorder of thyroid, unspecified; I27.81 Cor pulmonale (chronic); I25.10 Atherosclerotic heart disease of native coronary artery without angina pectoris; D69.6 Thrombocytopenia, unspecified; E78.5 Hyperlipidemia, unspecified; Z79.01 Long term (current) use of anticoagulants; Z90.49 Acquired absence of other specified parts of digestive tract; Z96.652 Presence of left artificial knee joint; Z96.641 Presence of right artificial hip joint; Z85.828 Personal history of other malignant neoplasm of skin; Z87.891 Personal history of nicotine dependence; E87.5 Hyperkalemia; R73.9 Hyperglycemia, unspecified; H57.02 Anisocoria
CPT/HCPCS: 31500; 36415; 36600; 70450; 71045; 71250; 76775; 80048; 80053; 80202; 81001; 82375; 82436; 82550; 82565; 82570; 82728; 82805; 82948; 83050; 83605; 83615; 83735; 83880; 84100; 84133; 84300; 84443; 84484; 85025; 85027; 85055; 85380; 85610; 85730; 85999; 86140; 87040; 87070; 87081; 87086; 87088; 87106; 87205; 87449; 87899; 93005; 93306; 93970; 94002; 94003; 94640; 96374; 99285; A9270; C9113; C9803; J0610; J1650; J1815; J1940; J1956; J2250; J2543; J2930; J3010; J3370; J7030; J7060; J7120; U0003; U0005